=== PATIENT | male | born 1940 | race Caucasian/White ===

== ENCOUNTER 2018-02-13 09:11 | Outpatient (RCR) | payer MEDICARE, SELFPAY | END 2018-02-13 09:12 | LOC: DC 09:11 | PROVIDERS: Family Provider Family Medicine; PCP Family Medicine; Visit Provider Family Medicine | DX: N18.3 Chronic kidney disease, stage 3 (moderate) (principal); Z71.3 Dietary counseling and surveillance | CPT/HCPCS: 97802 ==

== ENCOUNTER → 2018-02-19 10:48 | Outpatient (CLI) | payer MEDICARE, SELFPAY ==
--- NOTE | 2018-02-19 10:50 | VDLE_ITS ---
Reason For Study: PAIN RIGHT GSV is normal. CFV is compressible, spontaneous, phasic, competent and demonstrates normal augmentation. FV is compressible, spontaneous, phasic, competent and demonstrates normal augmentation. POP V is compressible, spontaneous, phasic, competent and demonstrates normal augmentation. T/P Trunk is compressible. PTV is compressible. RT PerV is compressible. Procedure Exam performed in department. A preliminary report was called and/or faxed to Kendal Clifton NP. Interpretation Summary Deep veins of the right lower extremity are patent and compressible segmentally. There is no evidence of right lower extremity deep vein thrombosis. Valvular competence appears intact within the proximal deep venous system on the right . The right greater saphenous vein appears patent and compressible segmentally. Ordering Physician: Kendal Clifton Referring Physician: Rene Quispe Performed By: Mana Gallegos, PAGE, RVT
== END ==
PROVIDERS: Family Provider Family Medicine; PCP Family Medicine; Visit Provider Nurse Practitioner Family
DX: M79.661 Pain in right lower leg (principal)
CPT/HCPCS: 93971

== ENCOUNTER → 2018-11-06 13:47 | Outpatient (CLI) | payer MEDICARE, SELFPAY ==
[2018-09-11 10:53] VITALS: BMI 30.8
--- NOTE | 2018-11-06 13:48 | CDU_ITS ---
Reason For Study: Carotid bruit Rt. Velocities/BP Lt. Velocities/BP Prox CCA 79.2/15.2 cm/sec. Prox CCA 85.8/17.0 cm/sec. Mid CCA 76.8/17.0 cm/sec. Mid CCA 73.8/12.0 cm/sec. Dist CCA 68.6/17.0 cm/sec. Dist CCA 63.3/14.5 cm/sec. Prox ICA 58.6/14.1 cm/sec. Prox ICA 53.4/14.1 cm/sec. Mid ICA 56.9/17.0 cm/sec. Mid ICA 50.5/14.4 cm/sec. Dist ICA 55.2/18.4 cm/sec. Dist ICA 48.8/13.0 cm/sec. Rt. ICA/CCA = .76. Lt. ICA/CCA = .72. Prox ECA 50.4/7.1 cm/sec. Prox ECA 56.9/6.5 cm/sec. Rt. Vert. 35.4/8.6 cm/sec. Lt. Vert. 42.8/14.1 cm/sec. Right Extracranial There is intimal thickening but no significant atherosclerotic plaque noted in the right common carotid artery. There is intimal thickening but no significant atherosclerotic plaque noted in the right internal carotid artery. There is intimal thickening but no significant atherosclerotic plaque noted in the right external carotid artery. Antegrade flow is noted in the right vertebral artery. Left Extracranial There is intimal thickening but no significant atherosclerotic plaque noted in the left common carotid artery. There is intimal thickening but no significant atherosclerotic plaque noted in the left internal carotid artery. There is no significant atherosclerotic plaque noted in the left external carotid artery. Antegrade flow is noted in the left vertebral artery. Procedure Carotid Duplex 79932. Exam performed in department. Interpretation Summary Mild (<50%) stenosis right extracranial internal carotid. Mild (<50%) stenosis left extracranial internal carotid. Flow within the vertebral arteries is antegrade bilaterally. Ordering Physician: Joseph Banerjee Referring Physician: Reen Quispe M.D. Performed By: Leatha Norton RVT
== END ==
PROVIDERS: Family Provider Family Medicine; PCP Family Medicine; Referring Provider Internal Medicine Cardiovascular Disease; Visit Provider Internal Medicine Cardiovascular Disease
DX: R09.89 Other specified symptoms and signs involving the circulatory and respiratory systems (principal)
CPT/HCPCS: 93880

== ENCOUNTER 2019-04-27 09:27 | Day surgery (SDC) | payer MEDICARE, SELFPAY ==
[2018-09-11 10:53] VITALS: BMI 30.8
[2019-04-27 10:16] VITALS: BP 162/92; PULSE 56; RESP 16; TEMP 36.2; O2SAT 97; BMI 30.7
--- NOTE | 2019-04-27 10:50 | RAD_ITS ---
PROCEDURE: Caudal block. DATE OF EXAMINATION: April 27, 2019. INDICATION: Male, 78 years old. Low back pain. FLUOROSCOPY TIME (if supplied): (0:11) minutes/seconds. 2 coned-down images were obtained. Intraoperative imaging provided for caudal block. RAD/Fluor Guidance for Spine Inj IMPRESSION: Intraoperative imaging provided for caudal block. Electronically Signed: Mick Adamson, at 15:22 EDT , Service support ,
[2019-04-27] MEDS: MethylPREDNISolone Acetate 80 MG/ML Vial (11:00)
[2019-04-27] MEDS: Bupivacaine 0.25% 30 ML Vial (11:00)
--- NOTE | 2019-04-27 11:07 | PCM.OPRPT ---
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 (3) Radiculopathy of lumbosacral region Status: Chronic Report of Operation Date of Procedure: 04/27/19 Pre-Operative Diagnosis: Lumbosacral radiculopathy, lumbosacral degenerative disc disease, lumbar sacral spinal stenosis Post-Operative Diagnosis: Lumbosacral radiculopathy, lumbosacral generative disease, lumbosacral spinal stenosis Surgery/Procedure Performed:: Caudal epidural steroid injection Description of Surgical Findings:: PROCEDURE: Caudal epidural steroid injection PREOPERATIVE DIAGNOSIS: Lumbosacral radiculopathy, lumbosacral degenerative disc disease, lumbosacral spinal stenosis POSTOPERATIVE DIAGNOSIS: Lumbosacral radiculopathy, lumbosacral degenerative disc disease, lumbosacral spinal stenosis ANESTHESIA: MAC COMPLICATIONS: None BLOOD LOSS: Minimal PROCEDURE IN DETAIL: History and physical today was reviewed. Risks and benefits of the procedure were explained. The patient understood, agreed to our procedure, and informed consent was obtained. IV inserted per routine protocol. The patient was taken to the operating room, placed in a prone position with a pillow positioned underneath the abdomen. The lower back and tailbone area was prepped and draped in a sterile fashion using iodine ?3 under fluoroscopy guidance on the lateral view the caudal space was identified the skin and subcutaneous tissue and size approximately 3 cc of 1% lidocaine using a 25-gauge regular needle under direct visualization fluoroscopy using the lateral approach using a 22-gauge 3-1/2 inch spinal needle the needle was advanced via the skin through the sacral hiatus, tip of the needle passed through the sacrococcygeal ligament advanced approximately S4 area after negative aspiration for blood or CSF a total of 3 cc of contrast were injected to confirm correct placement of the needle as well as cephalad spread the spread was followed to approximately L5 area after confirmation AP as well as lateral view repeated negative aspiration a total of 15 cc of preservative-free 0.125% Marcaine with 80 mg of the portal was injected easily. The needles were then removed intact. The patient experienced no signs or symptoms of intrathecal, or intravascular injection. The patient experienced no paraesthesia. The procedure was completed without any apparent difficult, any complication. The patient appeared to tolerate well. ASSESSMENT AND PLAN: This is a 78-year-old male with lumbosacral radiculopathy, lumbosacral degenerative disc disease, lumbosacral spinal stenosis status post caudal epidural steroid injection. The patient will continue his current medications. The patient will follow in approximately 2 weeks for reevaluation.
[2019-04-27 11:10] VITALS: BP 162/92; BP 163/80; PULSE 61; RESP 16; TEMP 36.3; O2SAT 97
[2019-04-27 11:15] VITALS: BP 162/92; BP 167/79; PULSE 59; RESP 16; O2SAT 97
[2019-04-27 11:20] VITALS: BP 162/84; BP 162/92; PULSE 56; RESP 16; O2SAT 97
[2019-04-27 11:27] VITALS: BP 162/92; BP 165/80; PULSE 51; RESP 16; TEMP 36.4; O2SAT 97
[2019-04-27 11:47] VITALS: BP 162/92
== END 2019-04-27 11:48 | disposition home or self-care (01) ==
LOC: SDC 09:38 → AC 09:38
PROVIDERS: Family Provider Family Medicine; PCP Family Medicine; Referring Provider Anesthesiology Pain Medicine; Visit Provider Anesthesiology Pain Medicine
PROC: 3E0S3BZ Introduction of Anesthetic Agent into Epidural Space, Percutaneous Approach (ICD-10-PCS; CPT 62282; principal; 2019-04-27 10:45)
DX: M48.061 Spinal stenosis, lumbar region without neurogenic claudication (principal); M51.17 Intervertebral disc disorders with radiculopathy, lumbosacral region; M47.27 Other spondylosis with radiculopathy, lumbosacral region; M17.11 Unilateral primary osteoarthritis, right knee; J45.909 Unspecified asthma, uncomplicated; I12.9 Hypertensive chronic kidney disease with stage 1 through stage 4 chronic kidney disease, or unspecified chronic kidney disease; N18.3 Chronic kidney disease, stage 3 (moderate); E78.00 Pure hypercholesterolemia, unspecified; Z85.828 Personal history of other malignant neoplasm of skin; Z87.891 Personal history of nicotine dependence; Z79.51 Long term (current) use of inhaled steroids; Z79.891 Long term (current) use of opiate analgesic; Z79.899 Other long term (current) drug therapy
CPT/HCPCS: 01992; 62323; 64520; 64483; 77003; J7120; J3490

== ENCOUNTER → 2019-09-30 09:52 | Outpatient (CLI) | payer MEDICARE, SELFPAY ==
[2019-09-15 09:25] VITALS: BMI 31.1
[2019-09-30 10:59] LABS: Albumin, Serum 3.3 g/dL (3.2-5.0); BUN 23 mg/dL (7-18); BUN/Creat Ratio 17.6 RATIO (10-20); Calcium,Total 9.2 mg/dL (8.5-10.1); Chloride 107 mmol/L (98-107); Creatinine, Serum 1.31 mg/dL (0.70-1.30); EST Glomerular Filtration Rate 56 mL/min (>60); Est Glom Filt Rate - Afr Amer 68 mL/min (>60); Glucose 90 mg/dL (74-106); Magnesium 2.1 mg/dL (1.6-2.6); Potassium 4.1 mmol/L (3.5-5.1); Sodium Level 139 mmol/L (136-145)
[2019-09-30 11:14] LABS: Vitamin D,25 Hydroxy 57.5 ng/mL (29.95-100.01)
[2019-09-30 11:16] LABS: PTHIN 55.5 pg/mL (18.4-80.1)
[2019-09-30 11:24] LABS: Microalbumin:Creatinine Ratio 902.6 mg/g CRE (<30 mg/g CRE); Protein, Urine (Random) 166.7 mg/dL (<11.9); Protein:Creat Ratio 1082 mg/g CRE (0-200)
[2019-10-02 12:10] LABS: Albumin 3.3 g/dL (2.9-4.4); Albumin, Ur 74.6 % (.); Alpha-1-Globulin, Ur 5.6 % (.); Alpha-1-Globulins 0.2 g/dL (0.0-0.4); Alpha-2-Globulins 0.6 g/dL (0.4-1.0); Beta Globulin, Ur 9.6 % (.); Gamma Globulin 1.1 g/dL (0.4-1.8); Gamma Globulin, Ur 6.2 % (.); Immunoglobulin A 107 mg/dL (61-437); Immunoglobulin G 558 mg/dL (700-1600); M-Spike, Ur % Not Observed % (Not Observed); PROEL- TOTAL PROTEIN 5.9 g/dL (6.0-8.5)
[2019-10-02 15:38] LABS: IFE Result, Ur Comment: (.); Immunoglobulin M 920 mg/dL (15-143)
== END ==
PROVIDERS: Family Provider Family Medicine; PCP Family Medicine; Referring Provider Internal Medicine Nephrology; Visit Provider Internal Medicine Nephrology
DX: N18.3 Chronic kidney disease, stage 3 (moderate) (principal); D63.1 Anemia in chronic kidney disease; D47.2 Monoclonal gammopathy
CPT/HCPCS: 36415; 80069; 82043; 82306; 82570; 82784; 83735; 83970; 84156; 84165; 84166; 86334; 86335

== ENCOUNTER → 2019-10-22 11:49 | Outpatient (CLI) | payer MEDICARE, SELFPAY ==
[2019-09-15 09:25] VITALS: BMI 31.1
[2019-10-22 12:06] LABS: Bacteria 0 SEEN /hpf (None Seen); Mucous, Urine 0 SEEN /hpf (<or=2+); Red Blood Cells-Urine 0 SEEN /hpf (0-5)
[2019-10-22 12:26] LABS: Absolute Lymphocyte Count 0.52 X10^3/uL (0.83-4.51); Absolute Neutrophil Count 8.1 X10^3/uL (2.0-7.7); Basophil# 0.02 X10^3/uL; Basophil% 0.2 % (0-1); Eosinophil# 0.11 X10^3/uL; Eosinophils% 1.2 % (0-5); Hematocrit 43.9 % (40-54); Hemoglobin 15.2 g/dL (13.0-16.5); Lymphocyte # 0.52 X10^3/ul (4.0); Lymphocyte % 5.5 % (19-41); Mean Corp Hgb Conc 34.6 g/dL (32-36); Mean Corpuscular Hgb 32.1 pg (27.0-32.0); Mean Corpuscular Volume 92.8 fL (80-94); Mean Platelet Vol. 10.3 fl (6.2-12.0); Monocyte# 0.73 X10^3/uL; Monocyte% 7.7 % (0-10); NRBC Flagged by Analyzer 0 % (0-5); Neutrophil # 8.06 X10^3/uL (2.7-7.7); Neutrophil % 84.7 % (47-70); POSITIVE COUNT YES; POSITIVE DIFFERENTIAL YES; Platelet Count 118 K/mm3 (150-450); RBC Distribution Width CV 12.5 % (11.6-14.6); RBC Distribution Width SD 43.2 fl (35.1-43.9); Red Blood Count 4.73 M/mm3 (4.6-6.2); White Blood Count 9.5 K/mm3 (4.4-11.0)
[2019-10-22 12:27] LABS: Differential Indicated SCAN CRITERIA MET
[2019-10-22 12:42] LABS: International Normalized Ratio 1.1; Partial Thromboplast Time 29.2 Seconds (24.1-36.2); Prothrombin Time (Protime)PT. 14.4 SECONDS (11.7-14.9)
[2019-10-22 13:01] LABS: AST(SGOT) 19 U/L (15-37); Alanine Aminotransfer ALT/SGPT 22 U/L (16-61); Albumin, Serum 3.4 g/dL (3.2-5.0); Alkaline Phosphatase 60 U/L (45-117); Anion Gap 4 (5-15); BUN 23 mg/dL (7-18); BUN/Creat Ratio 16.7 RATIO (10-20); Bilirubin, Direct 0.31 mg/dL (0.00-0.30); Calcium,Total 9.7 mg/dL (8.5-10.1); Chloride 105 mmol/L (98-107); Creatinine, Serum 1.38 mg/dL (0.70-1.30); EST Glomerular Filtration Rate 53 mL/min (>60); Est Glom Filt Rate - Afr Amer 64 mL/min (>60); Globulin 3.3 g/dL (2.2-4.2); Glucose 98 mg/dL (74-106); LDH 173 U/L (87-241); Potassium 4.3 mmol/L (3.5-5.1); Protein, Total 6.7 g/dL (6.4-8.2); Sodium Level 140 mmol/L (136-145); Uric Acid 5.3 mg/dL (3.5-7.2)
[2019-10-22 13:07] LABS: Platelet Estimate SLT DEC (ADEQ); Red Cell Morphology NORM C+C NORMAL (NORM C&C)
[2019-10-22 14:16] LABS: Color, Urine Yellow (Yellow); Glucose, Dipstick Normal (Normal); Ketone-Dipstick 5 mg/dl (Negative); Leukocyte Esterase-Dipstick 100 /ul (Negative); Nitrite-Dipstick Positive (Negative); Occult Blood-Urine Negative /ul (Negative); Protein-Dipstick 100 mg/dl (Negative); Urine Bilirubin Dipstick Negative (Negative); Urine Clarity Sl. Cloudy (Clear); Urine Urobilinogen Normal (Normal)
[2019-10-22 14:26] LABS: Squamous Epithelial Cells - UA 0-5 SEEN /hpf (0-5); White Blood Cells 25-50 SEEN /hpf (0-5)
[2019-10-28 17:06] LABS: Viscosity, Serum 1.7 rel.saline (1.6-1.9)
== END ==
PROVIDERS: Family Provider Family Medicine; PCP Family Medicine; Referring Provider Internal Medicine Hematology & Oncology; Visit Provider Internal Medicine Hematology & Oncology
DX: D47.2 Monoclonal gammopathy (principal); N18.3 Chronic kidney disease, stage 3 (moderate); R30.0 Dysuria
CPT/HCPCS: 36415; 80053; 81001; 82248; 82595; 83615; 84550; 85025; 85610; 85730; 85810; 87086; 87088; 87186

== ENCOUNTER → 2019-11-02 08:33 | Outpatient (CLI) | payer MEDICARE, SELFPAY ==
[2019-09-15 09:25] VITALS: BMI 31.1
[2019-11-04 14:08] LABS: Albumin, Ur 69.6 % (.); Alpha-1-Globulin, Ur 5.5 % (.); Alpha-2-Globulins, Ur 4.5 % (.); Beta Globulin, Ur 11.3 % (.); Gamma Globulin, Ur 9.1 % (.); M-Spike, Ur % Not Observed % (Not Observed); Protein, 24Ur 973 mg/24 hr (30-150); Total Protein, Ur 61.8 mg/dL (Not Estab.)
[2019-11-04 17:57] LABS: IFE Result, Ur Comment: (.)
== END ==
LOC: LAB 08:35 → LABSPEC 08:40
PROVIDERS: Family Provider Family Medicine; PCP Family Medicine; Referring Provider Internal Medicine Hematology & Oncology; Visit Provider Internal Medicine Hematology & Oncology
DX: D47.2 Monoclonal gammopathy (principal); N18.3 Chronic kidney disease, stage 3 (moderate)
CPT/HCPCS: 81050; 84166; 86335

== ENCOUNTER → 2019-11-11 | Outpatient (CLI) | payer MEDICARE, SELFPAY ==
[2019-09-15 09:25] VITALS: BMI 31.1
--- NOTE | 2019-11-11 | IMM_PTH ---
PATIENT: CORAL UBS[facility] LOC: [facility] U#:[id number] AGE/SX: 79/M ROOM: RE11/11/[address]: Dr. Jeffry Arredondo DO : 1940 BED: DIS: 11/11/2019 SPEC #: [id number] RECD: 11/17/19 12:31 STATUS: SOUEunice REQ #: [id number] SELAM: 11/11/19 00:[address]: Jeffry Arredondo DEPT: IMMUNOHISTOCHEMISTRY RECD BY: Christelle Lacey ENTERED: 11/17/19 12:34 SP TYPE: IMMUNO OTHR DR: Dr. Gisel Burch DO Tissues: B - Bone marrow of iliac crest Procedures: BCL-2 (add) BCL-6 (add) CD10 (add) CD138 (add) CD15 (add) CD20 (add) CD23 (add) CD3 (add) CD30 (add) CD43 (add) CD45 (add) CD5 (add) CD79A (add) CYCLIN (add) KAPPA (add) KI-67 (add) LAMBDA (add) MUM1 (add) C-MYC (add) Pankeratin (initial) PHYSICIAN & INSTITUTION [place] [id number] SPECIMEN INFORMATION: Tissue Source: B - Bone marrow clot Clinical Info: Lymphoplasmacytic lymphoma Specimen Number: [id number] CPT code: 12892, 39258 x19 METHODOLOGY: Deparaffinized sections of prefer/formalin-fixed tissue or PAP/DQ stained slides are incubated with monoclonal/polyclonal antibodies/oligonucleotide probes. Localization is made via biotin free immunoperoxidase method. Appropriate controls are performed and reacted as expected. Results on target cell population are indicated in the following table: RESULTS: ANTIBODY / CLONE RESULT Block B AE1-3 (AE1/AE3/PCK26) negative CD3 (PS1) positive CD5 (SP10) positive CD10 (56C6) negative CD15 (MMA) negative CD20 (L26) positive CD23 (1B12) negative CD30 (Louie-H2) negative CD43 (L60) positive CD45 (RP2/18) positive CD79a (11E3) positive CD138 (B-A38) negative BCL-2 (bcl-2/100/D5) * BCL-6 (PO475D/A8) negative Cyclin D1/BCL-1 (SP4) negative Nocatee (polyclonal) negative Lambda (polyclonal) negative MUM1 (MRQ-43) negative C-MYC (Y69) negative Ki-67 (30-9) * *?Noncontributory These tests were developed and their performance characteristics determined by [facility]. They may not have been cleared or approved by the U.S. Food and Drug Administration. The FDA has determined that such clearance or approval is not necessary. The above immunohistochemical/dualISH markers are ordered and reviewed by the Pathologist. INTERPRETATION: B. Bone marrow clot: Polytypic lymphoid aggregate. No evidence of plasma cell dyscrasia. Case has been reviewed in consultation with Dr. Stevens who concurs with the above diagnosis. IDC:BRIGIDA AM:manoj 11/18/19
--- NOTE | 2019-11-11 12:48 | BMB_PTH ---
PATIENT: CORAL BUSH LOC: [facility] U#:[id number] AGE/SX: 79/M ROOM: RE11/11/[address]: Dr. Jeffry Arredondo DO : 1940 BED: DIS: 11/11/2019 SPEC #: [id number] RECD: 11/11/19 15:31 STATUS: SPENCER REQ #: [id number] SELAM: 11/11/19 12:[address]: Jeffry Arredondo DEPT: BONE MARROW RECD BY: Oscar Rust ENTERED: 11/12/19 10:20 SP TYPE: BMB OTHR DR: Dr. Gisel Burch DO Tissues: A - Bone marrow, NOS B - Bone marrow, NOS C - Bone marrow, NOS Procedures: Decalcification bone/plaque Bone Marrow Aspiration Bone Marrow Core Biopsy Iron Stain Bone Marrow HEADER OPERATION: Bone marrow biopsy and aspiration PRE-OP DIAGNOSIS: Lymphoplasmacytic lymphoma TISSUE SUBMITTED: A - Core, B - Clot, C - Smears, and send outs (flow, cytogenetics and MYD88) BONE MARROW DIAGNOSIS Bone marrow biopsy, clot and aspiration: Mildly hypercellular bone marrow. Mildly increased stainable iron without ring sideroblasts. Benign lymphoid aggregate, microscopic. No evidence of plasma cell dyscrasia. Peripheral mild thrombocytopenia. See comment. AM:manoj 11/18/19 COMMENT Flow cytometric analysis does not reveal phenotypic evidence of chronic lymphocytic leukemia/small lymphocytic lymphoma, mantle cell lymphoma, hairy cell leukemia or follicular center lymphoma. An abnormal monoclonal B-cell population is present comprising of approximately 2% of the total cells and with slight kappa restriction. Clinical correlation is suggested. MYD88/L265P mutation results are pending and will be reported ass an addendum. Immunohistochemistry ([id number]) supports the above diagnosis. Case has been reviewed in consultation with Dr. Stevesn who concurs with the above diagnosis. IDC:SJ BONE MARROW STUDY Slides are reviewed. CBC DATE: 11/11/19 WBC 4.37; RBC 5.04; HGB 16.0; HCT 44.8; MCV 88.9; RDW 13.2; PLTS 139,000 SEGS 67.2%; LYMPHS 18.1%; MONOS 10.5%; EOS 3.7%; BASOS 0.5% PERIPHERAL SMEAR: Submitted. RBC: Normocytic WBC: Normomorphic PLTS: Mild thrombocytopenia BONE MARROW ASPIRATE DIFFERENTIAL: 200 cell count. Blasts % (normal 0-2): 2 Promyelocytes % (normal 1-5): 3 Myelocytes and metamyelocytes % (normal 17-41): 25 Bands and Segs % (normal 15-32): 25 Eos % (normal 1-6): 3 Basos % (normal 0-1): 0 Monocytes % (normal 0-4): 1 Erythroid Precursors % (normal 17-35): 31 Lymphocytes % (normal 7-13): 8 Plasma Cells % (normal 0-2): 2 ASPIRATE FINDINGS: Site: Not specified Spicular Cellular M/E ratio: 1.90 (Normal 1.5 - 4.0) Megakaryocytes: Adequate Erythropoiesis: Normoblastic Granulopoiesis: Progressive maturation CORE BIOPSY FINDINGS: Site: Not specified Adequacy: Adequate Cellularity %: 50% M/E ratio: Within normal limits Megakaryocytes: Adequate Bony trabeculae: Within normal limits Granulomas: 0 Lymphoid aggregate(s): Minute paratrabecular with small lymphocytes only. Atypical infiltrate(s): 0 ASPIRATE CLOT FINDINGS: Site: Not specified Marrow Particles: Adequate Cellularity %: 50% M/E ratio: Within normal limits Megakaryocytes: Adequate Granuloma(s): 0 Lymphoid aggregate(s): Present, one, polymorphic Atypical infiltrate(s): 0 SPECIAL STAINS (with matched controls): Iron: Mildly increased (1/4) without ring sideroblasts. Reticulin: Within normal limits PAS: Highlights myeloid elements and megakaryocytes. BONE MARROW GROSS A - Received is a container labeled with the patient's name and designated bone marrow biopsy core. The specimen consists of multiple fragments of blood clot mixed with fragments of bone measuring in aggregate 1 x 0.2 x 0.1 cm. The specimen is totally submitted in one cassette after decalcification. B - Received labeled with the patient's name and designated bone marrow biopsy clot is a specimen that consists of approximately ~5 cc of bloody fluid that on filtration yields multiple minute fragments of blood clots measuring in aggregate 3 x 2.5 x 0.3 cm. The specimen is totally submitted in one cassette. C - Also received are 6 unstained and 2 peripheral stained slides. The unstained slides are submitted for appropriate staining. Also received are one purple and two green top tubes which are sent to our reference lab for flow, cytogenetics and MYD88. / SJ:rg 11/12/19 TC: CPT: 28304, 82434, 87269 x2, 82787 x3, 91315 ADDENDUM ADDENDUM ADDENDUM ADDENDUM ADDENDUM ADDENDUM ADDENDUM ADDENDUM ADDENDUM 11/27/2019 09:35 ADDENDUM 11/27/2019 09:35 ADDENDUM 11/27/2019 09:35 ADDENDUM 11/27/2019 09:35 ADDENDUM 11/27/2019 09:35 CYTOGENETICS REPORT FROM [facility] CYTOGENETIC RESULT: 46,XY[20] INTERPRETATION: Normal male karyotype was observed in twenty metaphases analyzed. 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
== END | disposition home or self-care (01) ==
PROVIDERS: PCP Family Medicine; Referring Provider Internal Medicine Hematology & Oncology; Visit Provider Internal Medicine Hematology & Oncology
DX: D47.2 Monoclonal gammopathy (principal)
CPT/HCPCS: 88305; 88311; 88313; 88341; 88342

== ENCOUNTER → 2020-03-24 | Outpatient (CLI) | payer MEDICARE, SELFPAY ==
[2019-09-15 09:25] VITALS: BMI 31.1
[2020-03-24 09:01] LABS: Hematocrit 43.4 % (40-54); Hemoglobin 14.8 g/dL (13.0-16.5); Mean Corp Hgb Conc 34.1 g/dL (32-36); Mean Corpuscular Hgb 31.7 pg (27.0-32.0); Mean Corpuscular Volume 92.9 fL (80-94); Mean Platelet Vol. 10.8 fl (6.2-12.0); Platelet Count 134 K/mm3 (150-450); RBC Distribution Width CV 12.8 % (11.6-14.6); RBC Distribution Width SD 43.3 fl (35.1-43.9); Red Blood Count 4.67 M/mm3 (4.6-6.2); White Blood Count 4.3 K/mm3 (4.4-11.0)
[2020-03-24 09:15] LABS: PTHIN 49.4 pg/mL (18.4-80.1)
[2020-03-24 09:20] LABS: AST(SGOT) 23 U/L (15-37); Alanine Aminotransfer ALT/SGPT 25 U/L (16-61); Albumin, Serum 3.2 g/dL (3.2-5.0); Alkaline Phosphatase 58 U/L (45-117); Anion Gap 5 (5-15); BUN 26 mg/dL (7-18); BUN/Creat Ratio 19.7 RATIO (10-20); Calcium,Total 9.5 mg/dL (8.5-10.1); Chloride 106 mmol/L (98-107); Cholesterol 167 mg/dL (200); Creatinine, Serum 1.32 mg/dL (0.70-1.30); EST Glomerular Filtration Rate 56 mL/min (>60); Est Glom Filt Rate - Afr Amer 67 mL/min (>60); Globulin 3.1 g/dL (2.2-4.2); Glucose 93 mg/dL (74-106); High Density Lipoprotein 68 mg/dL; Magnesium 1.9 mg/dL (1.6-2.6); Phosphorus 3.4 mg/dL (2.5-4.9); Protein, Total 6.3 g/dL (6.4-8.2); Sodium Level 140 mmol/L (136-145); Triglycerides 64 mg/dL; Very Low Density Lipoprotein 13 mg/dL (5-40)
[2020-03-24 09:35] LABS: Microalbumin:Creatinine Ratio 541.5 mg/g CRE (<30 mg/g CRE)
== END | disposition home or self-care (01) ==
LOC: LAB 07:57
PROVIDERS: PCP Family Medicine; Referring Provider Internal Medicine Nephrology; Visit Provider Internal Medicine Nephrology
DX: I12.9 Hypertensive chronic kidney disease with stage 1 through stage 4 chronic kidney disease, or unspecified chronic kidney disease (principal); N18.3 Chronic kidney disease, stage 3 (moderate); D63.1 Anemia in chronic kidney disease; N25.81 Secondary hyperparathyroidism of renal origin; R80.9 Proteinuria, unspecified; E78.5 Hyperlipidemia, unspecified
CPT/HCPCS: 36415; 80053; 80061; 82043; 82306; 82570; 83735; 83970; 84100; 85027

== ENCOUNTER → 2020-05-20 | Outpatient (CLI) | payer MEDICARE, SELFPAY ==
[2019-09-15 09:25] VITALS: BMI 31.1
[2020-05-20 10:13] LABS: Absolute Lymphocyte Count 0.66 X10^3/uL (0.83-4.51); Absolute Neutrophil Count 2.9 X10^3/uL (2.0-7.7); Basophil# 0.03 X10^3/uL; Basophil% 0.7 % (0-1); Eosinophil# 0.18 X10^3/uL; Eosinophils% 4.2 % (0-5); Hematocrit 43.3 % (40-54); Hemoglobin 14.9 g/dL (13.0-16.5); Lymphocyte # 0.66 X10^3/ul (4.0); Lymphocyte % 15.3 % (19-41); Mean Corp Hgb Conc 34.4 g/dL (32-36); Mean Corpuscular Hgb 32.3 pg (27.0-32.0); Mean Corpuscular Volume 93.7 fL (80-94); Mean Platelet Vol. 10.6 fl (6.2-12.0); Monocyte# 0.49 X10^3/uL; Monocyte% 11.3 % (0-10); NRBC Flagged by Analyzer 0 % (0-5); Neutrophil # 2.94 X10^3/uL (2.7-7.7); Platelet Count 137 K/mm3 (150-450); RBC Distribution Width CV 12.9 % (11.6-14.6); RBC Distribution Width SD 44.3 fl (35.1-43.9); Red Blood Count 4.62 M/mm3 (4.6-6.2); White Blood Count 4.3 K/mm3 (4.4-11.0)
[2020-05-20 10:35] LABS: AST(SGOT) 18 U/L (15-37); Alanine Aminotransfer ALT/SGPT 25 U/L (16-61); Albumin, Serum 3.2 g/dL (3.2-5.0); Alkaline Phosphatase 62 U/L (45-117); Anion Gap 4 (5-15); BUN 30 mg/dL (7-18); BUN/Creat Ratio 22.9 RATIO (10-20); Calcium,Total 9.4 mg/dL (8.5-10.1); Chloride 104 mmol/L (98-107); Creatinine, Serum 1.31 mg/dL (0.70-1.30); EST Glomerular Filtration Rate 56 mL/min (>60); Est Glom Filt Rate - Afr Amer 68 mL/min (>60); Globulin 3.1 g/dL (2.2-4.2); Glucose 91 mg/dL (74-106); Potassium 3.9 mmol/L (3.5-5.1); Protein, Total 6.3 g/dL (6.4-8.2); Sodium Level 138 mmol/L (136-145)
[2020-05-23 16:08] LABS: Albumin 3.3 g/dL (2.9-4.4); Alpha-1-Globulins 0.2 g/dL (0.0-0.4); Alpha-2-Globulins 0.5 g/dL (0.4-1.0); Free Kappa Light Chains 52.6 mg/L (3.3-19.4); Free Lambda Light Chains 27.4 mg/L (5.7-26.3); Immunoglobulin A 101 mg/dL (61-437); Immunoglobulin G 555 mg/dL (603-1613); PROEL- TOTAL PROTEIN 5.8 g/dL (6.0-8.5)
[2020-05-23 19:41] LABS: Immunoglobulin M 887 mg/dL (15-143)
== END | disposition home or self-care (01) ==
PROVIDERS: PCP Family Medicine; Referring Provider Internal Medicine Hematology & Oncology; Visit Provider Internal Medicine Hematology & Oncology
DX: C83.00 Small cell B-cell lymphoma, unspecified site (principal); D47.2 Monoclonal gammopathy; C88.0 Waldenstrom macroglobulinemia
CPT/HCPCS: 36415; 80053; 82784; 83883; 84165; 85025; 86334

== ENCOUNTER → 2020-05-25 | Outpatient (CLI) | payer MEDICARE, SELFPAY ==
[2019-09-15 09:25] VITALS: BMI 31.1
[2020-05-27 16:08] LABS: Albumin, Ur 78.6 % (.); Alpha-1-Globulin, Ur 4.5 % (.); Alpha-2-Globulins, Ur 3.2 % (.); Beta Globulin, Ur 7.9 % (.); Gamma Globulin, Ur 5.8 % (.); M-Spike, Ur % Not Observed % (Not Observed); Protein, 24Ur 976 mg/24 hr (30-150); Total Protein, Ur 56.6 mg/dL (Not Estab.)
== END | disposition home or self-care (01) ==
LOC: LABSPEC 08:03
PROVIDERS: PCP Family Medicine; Referring Provider Internal Medicine Hematology & Oncology; Visit Provider Internal Medicine Hematology & Oncology
DX: C88.0 Waldenstrom macroglobulinemia (principal); C83.00 Small cell B-cell lymphoma, unspecified site
CPT/HCPCS: 81050; 84166; 86335

== ENCOUNTER → 2020-06-29 10:29 | Outpatient (CLI) | payer MEDICARE, SELFPAY ==
[2019-09-15 09:25] VITALS: BMI 31.1
--- NOTE | 2020-06-29 10:34 | CDU_ITS ---
Reason For Study: Carotid Stenosis Rt. Velocities/BP Lt. Velocities/BP Prox CCA 77/14 cm/sec. Prox CCA 113/16 cm/sec. Mid CCA 80/17 cm/sec. Mid CCA 69/12 cm/sec. Dist CCA 65/10 cm/sec. Dist CCA 69/15 cm/sec. Prox ICA 54/16 cm/sec. Prox ICA 48/14 cm/sec. Mid ICA 69/20 cm/sec. Mid ICA 55/17 cm/sec. Dist ICA 54/14 cm/sec. Dist ICA 79/22 cm/sec. Rt. ICA/CCA = 0.9. Lt. ICA/CCA = 1.1. Prox ECA 93/6 cm/sec. Prox ECA 88 cm/sec. Rt. Vert. 47/14 cm/sec. Lt. Vert. 45/15 cm/sec. Right Extracranial There is intimal thickening but no significant atherosclerotic plaque noted in the right common carotid artery. There is intimal thickening but no significant atherosclerotic plaque noted in the right internal carotid artery. There is no significant atherosclerotic plaque noted in the right external carotid artery. Antegrade flow is noted in the right vertebral artery. Left Extracranial There is intimal thickening but no significant atherosclerotic plaque noted in the left common carotid artery. There is intimal thickening but no significant atherosclerotic plaque noted in the left internal carotid artery. There is no significant atherosclerotic plaque noted in the left external carotid artery. Antegrade flow is noted in the left vertebral artery. Procedure Carotid Duplex [id number]. Exam performed in department. Interpretation Summary No hemodynamically significant plaque or stenosis bilateral extracranial internal carotid arteries with less than 50% stenosis bilaterally <50% stenosis bilateral external carotids Patent and antegrade vertebrals bilaterally Ordering Physician: Gisel Burhc Referring Physician: Gisel Burch Performed By: Radha Farfan, PAGE, RVT
== END ==
PROVIDERS: PCP Family Medicine; Referring Provider Family Medicine; Visit Provider Family Medicine
DX: R09.89 Other specified symptoms and signs involving the circulatory and respiratory systems (principal)
CPT/HCPCS: 93880

== ENCOUNTER → 2020-08-29 10:34 | Outpatient (CLI) | payer MEDICARE, SELFPAY ==
[2019-09-15 09:25] VITALS: BMI 31.1
[2020-08-29 10:55] LABS: Hematocrit 45.7 % (40-54); Hemoglobin 15.4 g/dL (13.0-16.5); Mean Corp Hgb Conc 33.7 g/dL (32-36); Mean Corpuscular Hgb 31.8 pg (27.0-32.0); Mean Corpuscular Volume 94.4 fL (80-94); Mean Platelet Vol. 10.6 fl (6.2-12.0); Platelet Count 138 K/mm3 (150-450); RBC Distribution Width CV 12.9 % (11.6-14.6); RBC Distribution Width SD 44.9 fl (35.1-43.9); Red Blood Count 4.84 M/mm3 (4.6-6.2); White Blood Count 5.6 K/mm3 (4.4-11.0)
[2020-08-29 11:14] LABS: PTHIN 86.8 pg/mL (18.4-80.1)
[2020-08-29 11:17] LABS: Albumin, Serum 3.2 g/dL (3.2-5.0); BUN 25 mg/dL (7-18); BUN/Creat Ratio 17.6 RATIO (10-20); Calcium,Total 9.1 mg/dL (8.5-10.1); Chloride 106 mmol/L (98-107); Creatinine, Serum 1.42 mg/dL (0.70-1.30); EST Glomerular Filtration Rate 51 mL/min (>60); Est Glom Filt Rate - Afr Amer 62 mL/min (>60); Glucose 92 mg/dL (74-106); Magnesium 2.2 mg/dL (1.6-2.6); Phosphorus 3.1 mg/dL (2.5-4.9); Potassium 4.2 mmol/L (3.5-5.1); Sodium Level 139 mmol/L (136-145)
[2020-08-29 11:18] LABS: Vitamin D,25 Hydroxy 49.5 ng/mL
[2020-08-29 12:15] LABS: Microalbumin:Creatinine Ratio 634.1 mg/g CRE (<30 mg/g CRE)
== END ==
PROVIDERS: PCP Family Medicine; Referring Provider Internal Medicine Nephrology; Visit Provider Internal Medicine Nephrology
DX: N18.30 Chronic kidney disease, stage 3 unspecified (principal); N25.81 Secondary hyperparathyroidism of renal origin; R80.9 Proteinuria, unspecified; D63.1 Anemia in chronic kidney disease
CPT/HCPCS: 36415; 80069; 82043; 82306; 82570; 83735; 83970; 85027

== ENCOUNTER → 2020-09-20 09:34 | Outpatient (CLI) | payer MEDICARE, SELFPAY ==
[2020-09-20 10:49] LABS: Albumin, Serum 3.3 g/dL (3.2-5.0); BUN 32 mg/dL (7-18); BUN/Creat Ratio 19.4 RATIO (10-20); Calcium,Total 9.1 mg/dL (8.5-10.1); Chloride 101 mmol/L (98-107); Creatinine, Serum 1.65 mg/dL (0.70-1.30); EST Glomerular Filtration Rate 43 mL/min (>60); Est Glom Filt Rate - Afr Amer 52 mL/min (>60); Glucose 95 mg/dL (74-106); Magnesium 2.4 mg/dL (1.6-2.6); Potassium 3.4 mmol/L (3.5-5.1); Sodium Level 138 mmol/L (136-145)
== END ==
PROVIDERS: PCP Family Medicine; Referring Provider Internal Medicine Nephrology; Visit Provider Internal Medicine Nephrology
DX: N18.31 Chronic kidney disease, stage 3a (principal)
CPT/HCPCS: 36415; 80069; 83735

== ENCOUNTER 2020-11-17 09:13 | Outpatient (RCR) | payer MEDICARE, SELFPAY ==
[2020-09-15 09:18] VITALS: BMI 28.1
== END 2020-11-17 23:59 ==
LOC: IMMUN 09:13
PROVIDERS: PCP Family Medicine; Visit Provider Family Medicine
DX: Z23 Encounter for immunization (principal)
CPT/HCPCS: 0011A; 0012A; 91301

== ENCOUNTER → 2020-12-24 07:30 | Outpatient (CLI) | payer MEDICARE, SELFPAY ==
[2020-09-15 09:18] VITALS: BMI 28.1
[2020-12-24 07:59] LABS: Hematocrit 39.6 % (40-54); Hemoglobin 13.3 g/dL (13.0-16.5); Mean Corp Hgb Conc 33.6 g/dL (32-36); Mean Corpuscular Hgb 31.5 pg (27.0-32.0); Mean Corpuscular Volume 93.8 fL (80-94); Mean Platelet Vol. 10.4 fl (6.2-12.0); Platelet Count 138 K/mm3 (150-450); RBC Distribution Width CV 13.1 % (11.6-14.6); Red Blood Count 4.22 M/mm3 (4.6-6.2); White Blood Count 4.3 K/mm3 (4.4-11.0)
[2020-12-24 08:32] LABS: ALB/GLOB Ratio 1.1 RATIO (0.9-2.4); AST(SGOT) 20 U/L (15-37); Alanine Aminotransfer ALT/SGPT 23 U/L (16-61); Albumin, Serum 3.1 g/dL (3.2-5.0); Alkaline Phosphatase 58 U/L (45-117); Anion Gap 4 (5-15); BUN 25 mg/dL (7-18); BUN/Creat Ratio 16.8 RATIO (10-20); Calcium,Total 9.2 mg/dL (8.5-10.1); Chloride 102 mmol/L (98-107); Cholesterol 144 mg/dL (200); Creatinine, Serum 1.49 mg/dL (0.70-1.30); EST Glomerular Filtration Rate 48 mL/min (>60); Est Glom Filt Rate - Afr Amer 58 mL/min (>60); Globulin 2.8 g/dL (2.2-4.2); Glucose 97 mg/dL (74-106); High Density Lipoprotein 62 mg/dL; Phosphorus 3.5 mg/dL (2.5-4.9); Potassium 3.7 mmol/L (3.5-5.1); Protein, Total 5.9 g/dL (6.4-8.2); Sodium Level 138 mmol/L (136-145); Thyroid Stim Hormone (TSH) 0.74 uIU/mL (0.358-3.74); Triglycerides 54 mg/dL; Very Low Density Lipoprotein 11 mg/dL (5-40)
[2020-12-24 09:42] LABS: Microalbumin:Creatinine Ratio 160.8 mg/g CRE (<30 mg/g CRE); Protein, Urine (Random) 32.4 mg/dL (<11.9); Protein:Creat Ratio 270 mg/g CRE (0-200)
[2020-12-26 08:21] LABS: PTHIN 49.2 pg/mL (18.4-80.1)
[2020-12-26 08:24] LABS: Vitamin D,25 Hydroxy 60.2 ng/mL
== END ==
LOC: LAB.FUTURE 07:30 → LAB 07:32
PROVIDERS: PCP Family Medicine; Referring Provider Family Medicine; Visit Provider Family Medicine
DX: N25.81 Secondary hyperparathyroidism of renal origin (principal); R80.9 Proteinuria, unspecified; I12.9 Hypertensive chronic kidney disease with stage 1 through stage 4 chronic kidney disease, or unspecified chronic kidney disease; N18.31 Chronic kidney disease, stage 3a; D63.1 Anemia in chronic kidney disease; E78.5 Hyperlipidemia, unspecified
CPT/HCPCS: 36415; 80053; 80061; 82043; 82306; 82570; 83735; 83970; 84100; 84156; 84443; 85027

== ENCOUNTER 2021-04-17 08:26 | Day surgery (SDC) | payer MEDICARE, SELFPAY ==
[2020-09-15 09:18] VITALS: BMI 28.1
[2021-04-17] VITALS (7 sets, daily range): BP systolic 138–156; BP diastolic 72–90; PULSE 52–65; RESP 16; TEMP 36.2–36.8; O2SAT 95–98; BMI 27.7
[2021-04-17] MEDS: Lactated Ringers 1,000 ML 100 ML IV (09:01)
--- NOTE | 2021-04-17 09:18 | RAD_ITS ---
PROCEDURE: Caudal block. DATE OF EXAMINATION: 04/17/2021 INDICATION: Male, 80 years old. Low back pain. FLUOROSCOPY TIME (if supplied): (6 seconds) minutes/seconds. 2 Intraoperative images were obtained. RAD/Fluor Guidance for Spine Inj IMPRESSION: Intraoperative imaging provided for caudal block. Electronically Signed: Mick Adamson MD at 10:04 EDT , Service support ,
[2021-04-17] MEDS: Lidocaine 1% (5 ml sdv) 5 ML Vial (09:19)
[2021-04-17] MEDS: Bupivacaine 0.25% 30 ML Vial (09:20)
[2021-04-17] MEDS: 0.9% Normal Saline (Pres. free 10 ML Vial (09:20)
[2021-04-17] MEDS: MethylPREDNISolone Acetate 80 MG/ML Vial (09:20)
--- NOTE | 2021-04-17 16:30 | OP.PCM_ITS ---
Report of Operation Date of Procedure: 04/17/21 Pre-Operative Diagnosis: Lumbosacral radiculopathy, lumbosacral degenerative di sc disease, lumbosacral spinal stenosis Post-Operative Diagnosis: Lumbosacral radiculopathy, lumbosacral degenerative disc disease, lumbosacral spinal stenosis Surgery/Procedure Performed:: Caudal epidural steroid injection under fluoroscopic guidance Type of Anesthesia: MAC Estimated Blood Loss (mL): Minimal Description of Procedure: DESCRIPTION OF PROCEDURE: History and physical of today was reviewed. Risks and benefits of the procedure were explained. The patient understood and agreed to proceed. Informed consent was obtained. IV inserted per routine protocol. The patient was taken to the operating room and placed in the prone position with a pillow positioned underneath the abdomen. The lower back and tailbone area was prepped and draped in a sterile fashion using iodine x3. Under fluoroscopy guidance on a lateral view, the caudal space was identified. The skin and subcutaneous tissue was anesthetized with approximately 3 mL of 1% lidocaine using a 25-gauge regular needle. Under direct visualization with fluoroscopy, using a 22-gauge 3-1/2-inch spinal needle, the needle was advanced via the skin through the sacral hiatus. The tip of the needle was passed through the sacrococcygeal ligament and advanced to approximately S4 area. After negative aspiration of blood or CSF, a total of 3 mL of contrast was injected to confirm correct placement of the needle as well as cephalad spread. The spread was followed to approximately L5 area. After confirmation on AP as well as lateral view and repeated negative aspiration, a total of 15 mL of preservative-free 0.125% Marcaine with 80 mg of Depo-Medrol was injected easily. The needle was then removed intact. The patient experienced no sign or symptoms of intrathecal or intravascular injection. The patient experienced no paresthesia. The procedure was completed without any apparent difficulty or any complications. The patient appeared to tolerate it well. ASSESSMENT AND PLAN: This is a 80-year-old male with lumbosacral radiculopathy, lumbosacral degenerative disc disease, lumbosacral spinal stenosis status post caudal epidural steroid injection, patient will continue his current medications, patient will follow in approximately 2 weeks for reevaluation. Complications None
== END 2021-04-17 10:31 ==
LOC: SDC 08:27 → AC 08:28
PROVIDERS: PCP Family Medicine; Referring Provider Anesthesiology Pain Medicine; Visit Provider Anesthesiology Pain Medicine
PROC: 3E0S3BZ Introduction of Anesthetic Agent into Epidural Space, Percutaneous Approach (ICD-10-PCS; CPT 62282; principal; 2021-04-17 09:55)
DX: M47.27 Other spondylosis with radiculopathy, lumbosacral region (principal); M51.17 Intervertebral disc disorders with radiculopathy, lumbosacral region; M48.07 Spinal stenosis, lumbosacral region; M13.861 Other specified arthritis, right knee; I12.9 Hypertensive chronic kidney disease with stage 1 through stage 4 chronic kidney disease, or unspecified chronic kidney disease; N18.9 Chronic kidney disease, unspecified; J45.909 Unspecified asthma, uncomplicated; E66.9 Obesity, unspecified; Z68.27 Body mass index [BMI] 27.0-27.9, adult; Z85.828 Personal history of other malignant neoplasm of skin; Z79.899 Other long term (current) drug therapy; Z87.891 Personal history of nicotine dependence
CPT/HCPCS: 01992; 62323; 64483; 77003; J7120; J3490

== ENCOUNTER → 2021-05-19 08:38 | Outpatient (CLI) | payer MEDICARE, SELFPAY ==
[2021-04-17 08:45] VITALS: BMI 27.7
[2021-05-19 09:46] LABS: Absolute Lymphocyte Count 0.62 X10^3/uL (0.83-4.51); Absolute Neutrophil Count 2.7 X10^3/uL (2.0-7.7); Basophil# 0.02 X10^3/uL; Basophil% 0.5 % (0-1); Eosinophil# 0.16 X10^3/uL; Eosinophils% 4.1 % (0-5); Hematocrit 40.2 % (40-54); Hemoglobin 13.7 g/dL (13.0-16.5); Lymphocyte # 0.62 X10^3/ul (0.83-4.51); Lymphocyte % 15.7 % (19-41); Mean Corp Hgb Conc 34.1 g/dL (32-36); Mean Corpuscular Hgb 31.8 pg (27.0-32.0); Mean Corpuscular Volume 93.3 fL (80-94); Mean Platelet Vol. 10.9 fl (6.2-12.0); Monocyte# 0.42 X10^3/uL; Monocyte% 10.6 % (0-10); NRBC Flagged by Analyzer 0 % (0-5); Neutrophil # 2.72 X10^3/uL (2.7-7.7); Neutrophil % 68.8 % (47-70); Platelet Count 126 K/mm3 (150-450); RBC Distribution Width CV 12.8 % (11.6-14.6); RBC Distribution Width SD 44.3 fl (35.1-43.9); Red Blood Count 4.31 M/mm3 (4.6-6.2)
[2021-05-19 10:14] LABS: AST(SGOT) 22 U/L (15-37); Alanine Aminotransfer ALT/SGPT 34 U/L (16-61); Albumin, Serum 3.1 g/dL (3.2-5.0); Alkaline Phosphatase 64 U/L (45-117); Anion Gap 7 (5-15); BUN 31 mg/dL (7-18); BUN/Creat Ratio 22.6 RATIO (10-20); Calcium,Total 8.8 mg/dL (8.5-10.1); Chloride 102 mmol/L (98-107); Creatinine, Serum 1.37 mg/dL (0.70-1.30); EST Glomerular Filtration Rate 53 mL/min (>60); Est Glom Filt Rate - Afr Amer 64 mL/min (>60); Globulin 3.1 g/dL (2.2-4.2); Glucose 92 mg/dL (74-106); Potassium 3.6 mmol/L (3.5-5.1); Protein, Total 6.2 g/dL (6.4-8.2); Sodium Level 139 mmol/L (136-145)
[2021-05-23 16:09] LABS: Albumin 3.4 g/dL (2.9-4.4); Albumin, Ur 66.3 % (.); Alpha-1-Globulin, Ur 6.8 % (.); Alpha-1-Globulins 0.2 g/dL (0.0-0.4); Alpha-2-Globulins 0.5 g/dL (0.4-1.0); Alpha-2-Globulins, Ur 5.8 % (.); Beta Globulin, Ur 10.8 % (.); Gamma Globulin, Ur 10.4 % (.); Immunoglobulin A 95 mg/dL (61-437); Immunoglobulin G 546 mg/dL (603-1613); PROEL- TOTAL PROTEIN 5.7 g/dL (6.0-8.5)
[2021-05-23 16:17] LABS: IFE Result, Ur Comment: (.); Immunoglobulin M 853 mg/dL (15-143); M-Spike, Ur % Comment: % (Not Observed)
== END ==
PROVIDERS: PCP Family Medicine; Referring Provider Internal Medicine Hematology & Oncology; Visit Provider Internal Medicine Hematology & Oncology
DX: C88.0 Waldenstrom macroglobulinemia (principal); C83.00 Small cell B-cell lymphoma, unspecified site
CPT/HCPCS: 36415; 80053; 82232; 82784; 84165; 84166; 85025; 86334; 86335

== ENCOUNTER → 2021-06-30 14:29 | Outpatient (CLI) | payer MEDICARE, SELFPAY ==
[2021-06-30 16:11] LABS: Hematocrit 38.9 % (40-54); Hemoglobin 13.4 g/dL (13.0-16.5); Mean Corp Hgb Conc 34.4 g/dL (32-36); Mean Corpuscular Hgb 31.9 pg (27.0-32.0); Mean Corpuscular Volume 92.6 fL (80-94); Mean Platelet Vol. 10.8 fl (6.2-12.0); Platelet Count 129 K/mm3 (150-450); RBC Distribution Width CV 12.8 % (11.6-14.6); RBC Distribution Width SD 43.6 fl (35.1-43.9); White Blood Count 4.8 K/mm3 (4.4-11.0)
[2021-06-30 16:27] LABS: Microalbumin:Creatinine Ratio 204.2 mg/g CRE (<30 mg/g CRE)
[2021-06-30 16:41] LABS: Albumin, Serum 3.3 g/dL (3.2-5.0); BUN 32 mg/dL (7-18); BUN/Creat Ratio 23.2 RATIO (10-20); Chloride 103 mmol/L (98-107); Creatinine, Serum 1.38 mg/dL (0.70-1.30); EST Glomerular Filtration Rate 53 mL/min (>60); Est Glom Filt Rate - Afr Amer 64 mL/min (>60); Glucose 92 mg/dL (74-106); Magnesium 2.2 mg/dL (1.6-2.6); Phosphorus 3.2 mg/dL (2.5-4.9); Potassium 3.9 mmol/L (3.5-5.1); Sodium Level 138 mmol/L (136-145)
[2021-06-30 16:48] LABS: Vitamin D,25 Hydroxy 65.2 ng/mL
[2021-07-04 08:23] LABS: PTHIN 70.8 pg/mL (18.4-80.1)
== END ==
PROVIDERS: PCP Family Medicine; Referring Provider Internal Medicine Nephrology; Visit Provider Internal Medicine Nephrology
DX: N25.81 Secondary hyperparathyroidism of renal origin (principal); R80.9 Proteinuria, unspecified; D63.1 Anemia in chronic kidney disease; N18.30 Chronic kidney disease, stage 3 unspecified
CPT/HCPCS: 36415; 80069; 82043; 82306; 82570; 83735; 83970; 85027

== ENCOUNTER 2021-12-18 09:21 | Outpatient (CLI) | payer MEDICARE, SELFPAY ==
[2021-12-18 10:20] LABS: AST(SGOT) 18 U/L (15-37); Alanine Aminotransfer ALT/SGPT 24 U/L (16-61); Albumin, Serum 3.1 g/dL (3.2-5.0); Alkaline Phosphatase 63 U/L (45-117); Bilirubin, Direct 0.21 mg/dL (0.00-0.30); Cholesterol 159 mg/dL (200); Globulin 3.1 g/dL (2.2-4.2); High Density Lipoprotein 62 mg/dL; Protein, Total 6.2 g/dL (6.4-8.2); Triglycerides 60 mg/dL; Very Low Density Lipoprotein 12 mg/dL (5-40)
== END 2021-12-18 23:59 | disposition home or self-care (01) ==
LOC: LAB 09:24
PROVIDERS: PCP Family Medicine; Visit Provider Internal Medicine Cardiovascular Disease
DX: E78.5 Hyperlipidemia, unspecified (principal)
CPT/HCPCS: 36415; 80061; 80076

== ENCOUNTER 2022-01-29 09:25 | Outpatient (CLI) | payer MEDICARE, SELFPAY ==
[2022-01-29 10:27] LABS: Hematocrit 40.2 % (40-54); Hemoglobin 14.1 g/dL (13.0-16.5); Mean Corp Hgb Conc 35.1 g/dL (32-36); Mean Corpuscular Hgb 32.1 pg (27.0-32.0); Mean Corpuscular Volume 91.6 fL (80-94); Mean Platelet Vol. 10.9 fl (6.2-12.0); Platelet Count 125 K/mm3 (150-450); RBC Distribution Width CV 12.9 % (11.6-14.6); RBC Distribution Width SD 43.5 fl (35.1-43.9); Red Blood Count 4.39 M/mm3 (4.6-6.2); White Blood Count 4.7 K/mm3 (4.4-11.0)
[2022-01-29 10:49] LABS: Albumin, Serum 3.2 g/dL (3.2-5.0); BUN 45 mg/dL (7-18); Calcium,Total 9.6 mg/dL (8.5-10.1); Chloride 104 mmol/L (98-107); Creatinine, Serum 1.61 mg/dL (0.70-1.30); EST Glomerular Filtration Rate 44 mL/min (>60); Est Glom Filt Rate - Afr Amer 53 mL/min (>60); Glucose 99 mg/dL (74-106); Phosphorus 3.5 mg/dL (2.5-4.9); Potassium 3.5 mmol/L (3.5-5.1); Sodium Level 139 mmol/L (136-145)
[2022-01-29 10:52] LABS: PTHIN 37.5 pg/mL (18.4-80.1)
[2022-01-29 10:54] LABS: Vitamin D,25 Hydroxy 66.9 ng/mL
[2022-01-29 11:31] LABS: Microalbumin,Random Urine 76.6 mg/L (NO RANGE EST.); Microalbumin:Creatinine Ratio 81.8 mg/g CRE (<30 mg/g CRE)
== END 2022-01-29 23:59 | disposition home or self-care (01) ==
LOC: LAB 09:27
PROVIDERS: PCP Family Medicine; Referring Provider Internal Medicine Nephrology; Visit Provider Internal Medicine Nephrology
DX: N25.81 Secondary hyperparathyroidism of renal origin (principal); N18.31 Chronic kidney disease, stage 3a; R80.9 Proteinuria, unspecified; D63.1 Anemia in chronic kidney disease
CPT/HCPCS: 36415; 80069; 82043; 82306; 82570; 83735; 83970; 85027

== ENCOUNTER → 2022-11-08 | Outpatient (CLI) | payer MEDICARE, SELFPAY ==
--- NOTE | 2022-11-08 15:33 | MRI_ITS ---
EXAM: MR RIGHT UPPER EXTREMITY WITHOUT INTRAVENOUS CONTRAST, SHOULDER CLINICAL INDICATION: STRAIN OF ROTATOR CUFF, BURSITIS, painful w/ movement TECHNIQUE: Multiplanar and multisequence MR images of the right shoulder without intravenous contrast. This report was created using [employer] technology. COMPARISON: None. FINDINGS: ARTIFACTS: Motion artifact limits assessment. TENDONS: SUPRASPINATUS: Full thickness full width tearing of the supraspinatus tendon and infraspinatus tendon with failure at the footprint and with retraction of the torn tendon fibers to the joint line. INFRASPINATUS: See above. SUBSCAPULARIS: Unremarkable. Intact. TERES MINOR: Unremarkable. Intact. BICEPS BRACHII, LONG HEAD: Long head biceps tendon is not well seen within the bicipital groove which is concerning for tearing and/or dislocation. LIGAMENTS: GLENOHUMERAL: Unremarkable. Intact. MUSCLES: Moderate to severe atrophy involving supraspinatus and infraspinatus muscles. FLUID: Moderate to large amount of glenohumeral joint effusion with synovitis. This extends into the subacromial/subdeltoid bursa through the full thickness rotator cuff tear. CARTILAGE: Unremarkable. Articular cartilage intact. GLENOID LABRUM: Unremarkable. No labral tearing. BONES/JOINTS: Moderate to severe hypertrophic degenerative changes acromioclavicular joint. High riding humeral head forming a pseudoarticulation with the undersurface of the acromion. Type II acromion with curved undersurface. No subacromial enthesophyte. No coracoacromial ligament thickening or irregularity. No os acromiale. No concerning bone marrow signal alterations. OTHER SOFT TISSUES: Unremarkable. No rotator interval edema. MRI/Upper Ext Joint Only(Routine) IMPRESSION: 1. Full thickness full width tearing of the supraspinatus tendon and infraspinatus tendon with failure at the footprint and with retraction of the torn tendon fibers to the joint line. 2. Moderate to large amount of glenohumeral joint effusion with synovitis. This extends into the subacromial/subdeltoid bursa through the full thickness rotator cuff tear. 3. Moderate to severe hypertrophic degenerative changes involving the acromioclavicular joint. 4. Long head biceps tendon is not well seen within the bicipital groove which is concerning for tearing and/or dislocation. Electronically Signed: Manny Kim MD at 3:28 EST ,
== END | disposition home or self-care (01) ==
LOC: MRI 15:25
PROVIDERS: PCP Family Medicine; Visit Provider Physician Assistant Surgical
DX: M75.41 Impingement syndrome of right shoulder (principal); S46.011A Strain of muscle(s) and tendon(s) of the rotator cuff of right shoulder, initial encounter; M75.51 Bursitis of right shoulder; X58.XXXA Exposure to other specified factors, initial encounter
CPT/HCPCS: 73221

== ENCOUNTER 2022-11-12 12:19 | Day surgery (SDC) | payer MEDICARE, SELFPAY ==
[2022-11-12] VITALS (9 sets, daily range): BP systolic 138–189; BP diastolic 80–91; PULSE 51–69; RESP 16–18; TEMP 36.1–36.4; O2SAT 96–98; BMI 29.2
[2022-11-12] MEDS: Lactated Ringers 1,000 ML 15 ML IV (13:45)
--- NOTE | 2022-11-12 14:00 | RAD_ITS ---
PROCEDURE: Caudal block. DATE OF EXAMINATION: 11/12/2022. INDICATION: Male, 82 years old. Chronic low back pain. FLUOROSCOPY TIME (if supplied): (2.3 seconds) minutes/seconds. One image was submitted. RAD/Fluor Guidance for Spine Inj IMPRESSION: Intraoperative imaging provided for caudal block. Electronically Signed: Mick Adamson MD at 8:14 EST ,
--- NOTE | 2022-11-12 15:00 | OP.PCM_ITS ---
Report of Operation Date of Procedure: 11/12/22 Pre-Operative Diagnosis: Lumbosacral radiculopathy, lumbosacral degenerative di sc disease, lumbosacral spinal stenosis Post-Operative Diagnosis: Lumbosacral radiculopathy, lumbosacral degenerative disc disease, lumbosacral spinal stenosis Surgery/Procedure Performed:: Caudal epidural steroid injection under fluoroscopic guidance Type of Anesthesia: MAC Estimated Blood Loss (mL): Minimal Description of Procedure: DESCRIPTION OF PROCEDURE: History and physical of today was reviewed. Risks and benefits of the procedure were explained. The patient understood and agreed to proceed. Informed consent was obtained. IV inserted per routine protocol. The patient was taken to the operating room and placed in the prone position with a pillow positioned underneath the abdomen. The lower back and tailbone area was prepped and draped in a sterile fashion using iodine x3. Under fluoroscopy guidance on a lateral view, the caudal space was identified. The skin and subcutaneous tissue was anesthetized with approximately 3 mL of 1% lidocaine using a 25-gauge regular needle. Under direct visualization with fluoroscopy, using a 22-gauge 3-1/2-inch spinal needle, the needle was advanced via the skin through the sacral hiatus. The tip of the needle was passed through the sacrococcygeal ligament and advanced to approximately S4 area. After negative aspiration of blood or CSF, a total of 3 mL of contrast was injected to confirm correct placement of the needle as well as cephalad spread. The spread was followed to approximately L5 area. After confirmation on AP as well as lateral view and repeated negative aspiration, a total of 15 mL of preservative-free 0.125% Marcaine with 80 mg of Depo-Medrol was injected easily. The needle was then removed intact. The patient experienced no sign or symptoms of intrathecal or intravascular injection. The patient experienced no paresthesia. The procedure was completed without any apparent difficulty or any complications. The patient appeared to tolerate it well. ASSESSMENT AND PLAN: This is a 82-year-old male with lumbosacral radiculopathy, lumbosacral degenerative disc disease, lumbosacral spinal stenosis status post caudal epidural steroid injection, patient will continue his current medications, patient will follow in approximately 2 weeks for reevaluation. Complications None
== END 2022-11-12 15:50 | disposition home or self-care (01) ==
LOC: SDC 12:23 → AC 13:10
PROVIDERS: PCP Family Medicine; Referring Provider Anesthesiology Pain Medicine; Visit Provider Anesthesiology Pain Medicine
PROC: 3E0S3BZ Introduction of Anesthetic Agent into Epidural Space, Percutaneous Approach (ICD-10-PCS; CPT 62282; principal; 2022-11-12 14:10)
DX: M51.17 Intervertebral disc disorders with radiculopathy, lumbosacral region (principal); M48.07 Spinal stenosis, lumbosacral region; I10 Essential (primary) hypertension; E78.5 Hyperlipidemia, unspecified; J45.909 Unspecified asthma, uncomplicated; M51.37 Other intervertebral disc degeneration, lumbosacral region
CPT/HCPCS: 62323; 64483; 77003; J7120; J3490

== ENCOUNTER → 2022-12-26 | Outpatient (CLI) | payer MEDICARE, SELFPAY ==
--- NOTE | 2022-12-26 15:38 | RAD_ITS ---
EXAM: XR CHEST, 2 VIEWS CLINICAL INDICATION: abnormal lung sounds TECHNIQUE: Frontal and lateral views of the chest. This report was created using [employer] report generation technology. COMPARISON: None. FINDINGS: LUNGS AND PLEURAL SPACES: Unremarkable. No consolidation or edema. No pneumothorax. No effusion. HEART: Unremarkable. Cardiac silhouette not enlarged. MEDIASTINUM: Central airways and mediastinal contour are unremarkable. BONES/JOINTS: Unremarkable. SOFT TISSUES: Unremarkable. UPPER ABDOMEN: Elevated right hemidiaphragm. RAD/Chest PA and Lateral IMPRESSION: Elevated right hemidiaphragm. No acute abnormality. Electronically Signed: Mj Perkins MD at 4:46 EST ,
== END | disposition home or self-care (01) ==
LOC: RAD 15:33
PROVIDERS: PCP Family Medicine; Visit Provider Physician Assistant Medical
DX: R09.89 Other specified symptoms and signs involving the circulatory and respiratory systems (principal)
CPT/HCPCS: 71046

== ENCOUNTER → 2023-04-12 | Outpatient (CLI) | payer MEDICARE, SELFPAY ==
--- NOTE | 2023-04-12 06:42 | MRI_ITS ---
STUDY: MRI LUMBAR SPINE WITHOUT CONTRAST REASON FOR EXAM: Male, 82 years old. R SIDED SCIATICA, NUMBNESS R ANTERIOR THIGH TECHNIQUE: Standardized fat and water weighted pulse sequences were obtained in the sagittal and axial planes. COMPARISON: MRI lumbar spine without contrast 08/22/2017. FINDINGS: T11-T12: (Sagittal only). Normal endplates. Normal disc height and morphology. No ventral extradural defect. Normal central canal and bilateral intervertebral neural foramina. T12-L1: (Sagittal only). Normal endplates. Normal disc height, hydration and morphology. Normal central canal and bilateral intervertebral neural foramina. Normal lumbar lordosis. There is no substantial scoliosis. Normal conus medullaris that terminates at the lower L1 vertebral body level. L1-2: Normal endplates. Minimal disc space height narrowing with minimal ventral extradural defect due to posterior bulging annulus. This is unchanged. Normal facet joints. Normal central canal and bilateral lateral recesses. Normal bilateral intervertebral neural foramina. Multiple bilateral renal cysts are visible at this level. L2-3: Normal endplates. Minimal disc space height narrowing. No significant facet arthropathy. Mild dorsal epidural lipomatosis. Normal central canal and bilateral lateral recesses. Mild stenosis of the bilateral intervertebral neural foramina are unchanged. L3-4: Normal endplates. Minimal disc space height narrowing. Suspicious small posterior midline cephalad disc protrusion (series 2, image 7). No associated spinal stenosis or nerve root displacement. No significant facet arthropathy. Normal central canal and bilateral lateral recesses. Mild stenosis of the left intervertebral neural foramen is unchanged. Normal right intervertebral neural foramen. L4-5: Normal endplates. Normal disc height. Mild ventral extradural defect due to posterior bulging annulus. No significant facet arthropathy. Mild dorsal epidural lipomatosis. Normal central canal and bilateral lateral recesses. Mild stenosis of the right intervertebral neural foramen. Normal left intervertebral neural foramen. This level is unchanged. L5-S1: Normal endplates. Normal disc height. Mild increased degenerative anterolisthesis of L5 on S1. Moderate asymmetric degenerative facet arthropathy, left greater than right. Normal central canal and bilateral lateral recesses. Moderate stenosis of the left intervertebral neural foramen is unchanged. Normal right intervertebral neural foramen. Normal visualized sacral ala. Normal visualized paraspinous soft tissue structures. MRI/Spine Lumbar (Routine) IMPRESSION: 1. No MRI evidence of lumbar extruded disc fragment. 2. Moderate stenosis of the left L5-S1 intervertebral neural foramen and moderate asymmetric bilateral degenerative facet arthropathy are unchanged. There is, however, mild increased degenerative anterolisthesis of L5 on S1. 3. Mild stenosis of the right L4-L5 intervertebral neural foramen and small L4-L5 posterior bulging annulus. This level is unchanged. 4. Small L3-L4 posterior midline cephalad disc protrusion (series 2, image 7). This is of questionable clinical significance as there is no associated spinal stenosis or nerve root displacement. Mild stenosis of the left L3-L4 intervertebral neural foramen is unchanged. 5. Multiple small bilateral renal cysts. Renal ultrasound will help confirm simple cysts. Electronically Signed: Adrián Servin MD at 12:19 EDT ,
== END | disposition home or self-care (01) ==
PROVIDERS: PCP Family Medicine; Referring Provider Family Medicine; Visit Provider Family Medicine
DX: M54.41 Lumbago with sciatica, right side (principal); R20.0 Anesthesia of skin; F40.240 Claustrophobia
CPT/HCPCS: 72148

== ENCOUNTER 2023-04-15 06:54 | Day surgery (SDC) | payer MEDICARE, SELFPAY ==
[2023-04-15 07:21] VITALS: BP 127/74; PULSE 58; RESP 16; TEMP 36.9; O2SAT 99; BMI 28.3
[2023-04-15] MEDS: Lactated Ringers 1,000 ML 15 ML IV (07:29)
--- NOTE | 2023-04-15 09:01 | RAD_ITS ---
STUDY: INTRAOPERATIVE FLUOROSCOPY TECHNIQUE: The examination was performed with referring physician in attendance. Under fluoroscopic observation, fluoroscopic images were obtained. Radiologist was not present for the study. Radiologist did not perform the procedure. This dictation is for documentation of the radiation dosage only. There is no interpretation of the images. TOTAL NUMBER OF IMAGES: 1 COMPARISON: None RADIATION DOSE: 2.46 mGy FLUOROSCOPY TIME: 7.3 seconds REASON FOR EXAM: MEDIAL BRANCH NERVE BLOCK, L3-S1, RIGHT Male, 82 years old. FINDINGS: Images of the lumbar spine. [place] pointing at the lumbar levels. RAD/L/S Spine Min 4 Views IMPRESSION: Fluoroscopic assistance images were obtained. Dictation for documentation purposes only. Electronically Signed: Alverto Summers MD at 18:32 EDT ,
[2023-04-15] MEDS: MethylPREDNISolone Acetate 80 MG/ML Vial (09:06)
[2023-04-15] MEDS: Lidocaine 1% (5 ml sdv) 5 ML Vial (09:06)
--- NOTE | 2023-04-15 09:12 | OP.PCM_ITS ---
Report of Operation Date of Procedure: 04/15/23 Description of Surgical Findings:: PREOPERATIVE DIAGNOSIS: Lumbosacral spondylosis, lumbosacral degenerative disc disease, lumbar facet arthropathy POSTOPERATIVE DIAGNOSIS: Lumbosacral spondylosis, lumbosacral degenerative disc disease, lumbar facet arthropathy PROCEDURE PERFORMED: Right-sided lumbar medial branch block injection, L3, L4, L5, and S1. ANESTHESIA: MAC. BLOOD LOSS: Minimal. COMPLICATIONS: None. DESCRIPTION OF PROCEDURE: History and physical of today was reviewed. Risks and benefits of the procedure were explained. The patient understood and agreed to proceed. Informed consent was obtained. IV inserted per routine protocol. The patient was taken to the operating room and placed in the prone position with a pillow positioned underneath the abdomen. The right side of her lower back was prepped and draped in a sterile fashion using iodine x3. Under fluoroscopy on oblique view, the L3 through S1 vertebral bodies were visualized. The skin and subcutaneous tissue was anesthetized with approximately 5 mL of 1% lidocaine using a 25-gauge regular needle. Under direct visualization with fluoroscopy, at approximately 25-degree angle starting on the right L3, ending on the right S1, passing through the L4 and L5, using a 22-gauge 3-1/2-inch spinal needle, the needle was advanced via the skin. The tip of the needle was maneuvered and directed towards the superior medial gutter of the transverse process at the vicinity of the medial branch. Once tip of the needle was in contact with the bone, the needle was pulled approximately 2 mm off the bone. After negative aspiration of blood or CSF and confirmation on AP as well as obl ique view, a total of 8 mL of preservative-free 0.25% Marcaine with 80 mg of Depo-Medrol was injected in divided doses between those four levels. The needles were then removed intact. The patient experienced no sign or symptoms of intrathecal or intravascular injection, The patient experienced no paresthesia. The procedure was completed without any apparent difficulty or any complications. The patient appeared to tolerate it well. ASSESSMENT AND PLAN: This is an 82-year-old male with lumbosacral spondylosis, lumbosacral degenerative disc disease, lumbar facet arthropathy status post right-sided lumbar medial branch block L3-S1, patient will continue his current medications, patient will follow approximately 2 weeks for reevaluation.
[2023-04-15 09:13] VITALS: BP 127/74; BP 159/88; PULSE 61; RESP 16; TEMP 36.9; O2SAT 98
[2023-04-15 09:20] VITALS: BP 127/74; BP 180/84; PULSE 62; RESP 18; O2SAT 97
[2023-04-15 09:25] VITALS: BP 127/74; BP 179/85; PULSE 57; RESP 18; O2SAT 96
[2023-04-15 09:31] VITALS: BP 127/74; BP 180/85; PULSE 60; RESP 16; TEMP 36.9; O2SAT 99
[2023-04-15 09:47] VITALS: BP 127/74
== END 2023-04-15 09:53 | disposition home or self-care (01) ==
LOC: SDC 06:56 → AC 06:57
PROVIDERS: PCP Family Medicine; Referring Provider Anesthesiology Pain Medicine; Visit Provider Anesthesiology Pain Medicine
PROC: 3E0S3BZ Introduction of Anesthetic Agent into Epidural Space, Percutaneous Approach (ICD-10-PCS; CPT 62322; principal; 2023-04-15 08:35)
DX: M47.816 Spondylosis without myelopathy or radiculopathy, lumbar region (principal); M46.96 Unspecified inflammatory spondylopathy, lumbar region; N18.30 Chronic kidney disease, stage 3 unspecified; M47.817 Spondylosis without myelopathy or radiculopathy, lumbosacral region; M51.37 Other intervertebral disc degeneration, lumbosacral region; I12.9 Hypertensive chronic kidney disease with stage 1 through stage 4 chronic kidney disease, or unspecified chronic kidney disease; E78.00 Pure hypercholesterolemia, unspecified; J45.909 Unspecified asthma, uncomplicated; E66.9 Obesity, unspecified; Z68.28 Body mass index [BMI] 28.0-28.9, adult; Z79.51 Long term (current) use of inhaled steroids; Z79.891 Long term (current) use of opiate analgesic; Z79.899 Other long term (current) drug therapy; Z87.891 Personal history of nicotine dependence
CPT/HCPCS: 64493; 64494; 64495; 01992; 64483; 72110; J7120

== ENCOUNTER 2024-01-13 07:34 | Day surgery (SDC) | payer MEDICARE, SELFPAY ==
[2024-01-13] VITALS (7 sets, daily range): BP systolic 144–167; BP diastolic 74–88; PULSE 54–69; RESP 16–18; TEMP 36.4–36.9; O2SAT 96–98; BMI 20.5
[2024-01-13] MEDS: Lactated Ringers 1,000 ML 15 ML IV (08:23)
--- NOTE | 2024-01-13 08:50 | RAD_ITS ---
PROCEDURE: Caudal epidural steroid injection. DATE OF EXAMINATION: January 13, 2024. INDICATION: Male, 83 years old. Chronic lower back pain. FLUOROSCOPY TIME (if supplied): (1 second) minutes/seconds. 0.57 mGy. One spot image was submitted. RAD/Spine 1 View Any Level IMPRESSION: Intraoperative imaging provided for caudal epidural steroid injection. Electronically Signed: Mick Adamson MD at 9:34 EDT ,
[2024-01-13] MEDS: 0.9% Normal Saline (Pres. free 10 ML Vial (08:53)
[2024-01-13] MEDS: Lidocaine 1% (5 ml sdv) 5 ML Vial (08:53)
[2024-01-13] MEDS: MethylPREDNISolone Acetate 80 MG/ML Vial (08:53)
--- NOTE | 2024-01-13 08:56 | OP.PCM_ITS ---
Report of Operation Date of Procedure: 01/13/24 Pre-Operative Diagnosis: Lumbosacral radiculopathy, lumbosacral degenerative di sc disease, lumbosacral spinal stenosis Post-Operative Diagnosis: Lumbosacral radiculopathy, lumbosacral degenerative disc disease, lumbosacral spinal stenosis Surgery/Procedure Performed:: Diagnostic/therapeutic caudal epidural steroid injection under fluoroscopic guidance Type of Anesthesia: MAC Estimated Blood Loss (mL): Minimal Description of Procedure: DESCRIPTION OF PROCEDURE: History and physical of today was reviewed. Risks and benefits of the procedure were explained. The patient understood and agreed to proceed. Informed consent was obtained. IV inserted per routine protocol. The patient was taken to the operating room and placed in the prone position with a pillow positioned underneath the abdomen. The lower back and tailbone area was prepped and draped in a sterile fashion using iodine x3. Under fluoroscopy guidance on a lateral view, the caudal space was identified. The skin and subcutaneous tissue was anesthetized with approximately 3 mL of 1% lidocaine using a 25-gauge regular needle. Under direct visualization with fluoroscopy, using a 22-gauge 3-1/2-inch spinal needle, the needle was advanced via the skin through the sacral hiatus. The tip of the needle was passed through the sacrococcygeal ligament and advanced to approximately S4 area. After negative aspiration of blood or CSF, a total of 3 mL of contrast was injected to confirm correct placement of the needle as well as cephalad spread. The spread was followed to approximately L5 area. After confirmation on AP as well as lateral view and repeated negative aspiration, a total of 15 mL of preservative-free 0.125% Marcaine with 80 mg of Depo-Medrol was injected easily. The needle was then removed intact. The patient experienced no sign or symptoms of intrathecal or intravascular injection. The patient experienced no paresthesia. The procedure was completed without any apparent difficulty or any complications. The patient appeared to tolerate it well. ASSESSMENT AND PLAN: This is an 83-year-old male with lumbosacral radiculopathy, lumbosacral degenerative disc disease, lumbosacral spinal stenosis status post diagnostic/therapeutic caudal epidural steroid injection, patient will continue his current medications, patient will follow in approximately 2 weeks for reevaluation. Complications None
== END 2024-01-13 09:53 | disposition home or self-care (01) ==
LOC: SDC 07:34 → AC 07:38
PROVIDERS: PCP Family Medicine; Referring Provider Family Medicine; Visit Provider Anesthesiology Pain Medicine
PROC: 3E0S3BZ Introduction of Anesthetic Agent into Epidural Space, Percutaneous Approach (ICD-10-PCS; CPT 62282; principal; 2024-01-13 09:05)
DX: M51.17 Intervertebral disc disorders with radiculopathy, lumbosacral region (principal); M46.96 Unspecified inflammatory spondylopathy, lumbar region; N18.30 Chronic kidney disease, stage 3 unspecified; M48.07 Spinal stenosis, lumbosacral region; M47.817 Spondylosis without myelopathy or radiculopathy, lumbosacral region; I12.9 Hypertensive chronic kidney disease with stage 1 through stage 4 chronic kidney disease, or unspecified chronic kidney disease; E78.00 Pure hypercholesterolemia, unspecified; Z79.899 Other long term (current) drug therapy; Z87.891 Personal history of nicotine dependence
CPT/HCPCS: 62323; 01992; 64483; 72020; 76000; J7120; J3490

== ENCOUNTER → 2024-03-03 | Outpatient (CLI) | payer MEDICARE, SELFPAY ==
--- NOTE | 2024-03-03 13:53 | ECHOD_ITS ---
Reason For Study: HTN Procedure This was a 2D Doppler, Color Flow transthoracic echocardiogram. Exam performed in department. Left Ventricle Normal LV size. Mild concentric left ventricular hypertrophy. The left ventricular ejection fraction is 60 %. Stage 1 diastolic dysfunction. No regional wall motion abnormalities noted. Right Ventricle Normal RV size. Normal systolic function. Atria Normal left atrium. Normal right atrium. Mitral Valve Normal mitral valve. Mild (1+) mitral valve insufficiency. Tricuspid Valve Normal tricuspid valve. Mild (1+) tricuspid valve insufficiency. Pulmonary artery systolic pressure is 32 mmHg. Aortic Valve Trisinus/trileaflet aortic valve. Mild (1+) aortic valve insufficiency. Pulmonic Valve Normal pulmonic valve. Great Vessels Normal aortic root. The pulmonary artery is normal size. Normal inferior vena cava. Pericardium/Pleural No pericardial effusion. MMode/2D Measurements & Calculations LVIDd: 4.1 cm IVSd: 1.6 cm Ao root diam: 3.8 cm LVIDs: 2.7 cm LVPWd: 1.2 cm RVDd: 3.2 cm FS: 34.4 % LAV(MOD-sp4): 43.0 ml LVAd ap4: 27.5 cm2 LVAd ap2: 23.9 cm2 LVLd ap4: 8.3 cm LVLd ap2: 7.4 cm EDV(MOD-sp4): 75.6 ml EDV(MOD-sp2): 63.9 ml EDV(sp4-el): 77.5 ml EDV(sp2-el): 65.6 ml LVAs ap4: 16.7 cm2 LVAs ap2: 14.5 cm2 LVLs ap4: 7.6 cm LVLs ap2: 7.9 cm ESV(MOD-sp4): 31.0 ml ESV(MOD-sp2): 23.8 ml ESV(sp4-el): 31.1 ml ESV(sp2-el): 22.4 ml EF(MOD-sp4): 58.9 % EF(MOD-sp2): 62.8 % EF(sp4-el): 59.8 % SV(MOD-sp4): 44.6 ml SV(MOD-sp2): 40.1 ml SV(sp4-el): 46.4 ml LA dimension(2D): 4.5 cm LA A4 area: 17.0 cm2 RA A4 area: 12.3 cm2 TAPSE: 1.5 cm Time Measurements MV dec time: 0.26 sec Doppler Measurements & Calculations MV E max nathen: 62.3 cm/sec Lat Peak E' Nathen: 8.0 cm/sec Med Peak E' Nathen: 4.8 cm/sec MV A max nathen: 81.0 cm/sec E/E' lat: 7.8 E/E' med: 13.1 MV E/A: 0.77 MV dec slope: 235.7 cm/sec2 Ao V2 max: 118.5 cm/sec LV V1 max: 90.2 cm/sec Ao max P.6 mmHg LV V1 max P.3 mmHg Ao V2 mean: 88.0 cm/sec LV V1 mean P.7 mmHg Ao mean P.3 mmHg LV V1 mean: 62.8 cm/sec Ao V2 VTI: 27.8 cm LV V1 VTI: 21.5 cm AV (velocity ratio): 0.77 PA V2 max: 78.7 cm/sec TR max nathen: 266.3 cm/sec TR max P.4 mmHg ECHO/Echo Complete Interpretation Summary Normal LV size. The left ventricular ejection fraction is 60 %. Stage 1 diastolic dysfunction. Pulmonary artery systolic pressure is 32 mmHg. Mild (1+) aortic valve insufficiency. Ordering Physician: Joseph Banerjee Referring Physician: Gisel Burch Performed By: Virgie Peñaloza RDCS
== END | disposition home or self-care (01) ==
PROVIDERS: PCP Family Medicine; Referring Provider Internal Medicine Cardiovascular Disease; Visit Provider Internal Medicine Cardiovascular Disease
DX: I10 Essential (primary) hypertension (principal); I34.0 Nonrheumatic mitral (valve) insufficiency
CPT/HCPCS: 93306

== ENCOUNTER 2025-01-11 07:28 | Day surgery (SDC) | payer MEDICARE, SELFPAY ==
--- NOTE | 2025-01-08 14:25 | PAT.ANESEVAL ---
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 When Was Last Pacemaker Check QUESTION #4 FULL TEXT: You/Your Family Experience fever (hyperthermia) with Anesthesia Last Oral Intake Last Oral intake: Last Oral Intake NPO since Meds taken in AM with sips of water? 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 family teacher Female No 01/08/25 11:46 HX of Motion Sickness No 01/08/25 11:46 HX of N/V After Surgery No 01/08/25 11:46 Non-Smoker Yes 01/08/25 11:46 Duration of Surgery greater No 01/08/25 11:46 than 60 minutes Number of Risk Factors 1 01/08/25 11:46 PONV Score Low Risk 01/08/25 11:46 Height & Weight Height & Weight: Anesthesia: Height & Weight Height 6 ft 7 in 02/04/24 14:24 Respiratory Assessment Respiratory Assessment - marriage and family teacher: Respiratory Tract Infection Hx - marriage and family teacher Hx Respiratory Tract Infection No 01/08/25 11:46 STOP Sleep Apnea STOP Sleep Apnea - marriage and family teacher: STOP Sleep Apnea - marriage and family teacher Hx Hypertension Yes: CONTROLLED ON MED 01/08/25 11:46 Hx Sleep Apnea No 01/08/25 11:46 CPAP BIPAP Do you snore loudly (louder No 01/08/25 11:46 than talking or can be heard Do you often feel tired/ No 01/08/25 11:46 fatigued/ sleepy during daytime? Has anyone observed you stop No 01/08/25 11:46 breathing during sleep? STOP Results Negative 01/08/25 11:46 QUESTION #5 FULL TEXT : Do you snore loudly (louder than talking or can be heard through closed doors)? 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 Specify any problems Hx of Preganancy in last 3 N/A 01/08/25 11:46 Months Nurse Filling Out Transfusion NBUCHER 01/08/25 11:46 & Questions: Date: 01/08/25 01/08/25 11:46 Time: 11:48 01/08/25 11:46 Patient unable to answer at this time (ie. confused, unrespo /Reproduction History /Reproductive History - marriage and family teacher: /Reproductive Hx- marriage and family teacher Hx Now Gestational Age (in weeks): EDC: Hx Hx Para Hx Section SAB PFSH Medical History (Updated 01/08/25 @ 11:51 by Mila Shea) Macular hole Mitral valve regurgitation History of steroid therapy Arthritis High cholesterol Non-smoker History of edema Cardiology follow-up encounter Wears glasses Cancer Alcohol use Easy bruising Brain aneurysm History of renal disease Asthma Obesity HLD (hyperlipidemia) Essential (primary) hypertension Spinal stenosis of lumbosacral region Degeneration of intervertebral disc of lumbosacral region Radiculopathy of lumbosacral region Home Medications ?Medication ?Instructions ?Recorded ?Last Taken ?Type cholecalciferol (vitamin D3) 50 2,000 unit PO DAILY 09/30/17 Unknown History mcg (2,000 unit) capsule fluticasone propionate 220 1 puff inhalation BID 09/30/17 09/30/17 07:00 History mcg/actuation HFA aerosol inhaler 1 PUFF (Flovent HFA) metoprolol tartrate 100 mg tablet 100 mg PO BID 09/30/17 01/13/24 06:08 History saw palmetto 450 mg capsule 450 mg PO BID 09/30/17 Unknown History simvastatin 10 mg tablet 10 mg PO MOWEFR 09/30/17 Unknown History doxazosin 4 mg tablet (Cardura) 4 mg PO QHS 09/15/19 Unknown History lisinopril 40 mg tablet 60 mg PO DAILY 11/11/20 01/13/24 06:08 History vitamins A,C,D-diky-hydiwa 2,148 2 tab PO BID 12/26/22 Unknown History mcg-113 mg-45 mg-17.4 mg tablet (PreserVision AREDS) chlorthalidone 25 mg tablet 12.5 mg PO DAILY 04/15/23 01/13/24 06:08 History Allergy/AdvReac Type Severity Reaction Status Date / Time ciprofloxacin (From Cipro) Allergy Swelling Verified 01/08/25 11:43 Family History Father CVA (cerebral vascular accident) Brother CAD (coronary artery disease) CVA (cerebral vascular accident) Mother CVA (cerebral vascular accident) Surgical History History of cholecystectomy Hx of colonoscopy History of hernia repair Social History Smoking Status: Former smoker alcohol intake: never Audit: Pertinent Findings Pertinent Findings Echo (EF%) pertinent findings: 03/03/2024. Normal size function EF 60%. Pulmonary artery pressure 32. Consult pertinent findings: Cardiology 02/04/2024. Hypertension. Controlled with meds. Check echo to assess left ventricular function. Recommendation Anesthesia Recommendation Anesthesia recommendation: OPTIMIZED for anesthesia
[2025-01-11] VITALS (8 sets, daily range): BP systolic 141–166; BP diastolic 67–84; PULSE 57–65; RESP 14–18; TEMP 36.2–36.9; O2SAT 97–99; BMI 29.4
[2025-01-11] MEDS: Lidocaine 1% (5 ml sdv) 5 ML Vial (07:39)
--- NOTE | 2025-01-11 09:06 | PRE.ANES_ITS ---
ASA Classification* ASA Classification ASA Classification: 2 Assessment & Plan Anesthesia* Anesthesia Assessment Anesthesia Assessment: Discussed sedation and/or anesthesia options, risks, benefits, and alternatives with patient/parents/legal guardian/POA. Questions invited. The patient/parents/legal guardian/POA seems to understand and agrees to proceed with anesthesia plan. Reviewed the physical assessment, medical history, allergy history and patient home medications list prior to surgery/procedure/anesthetic and documented any changes. Performed airway and anesthesia risk assessments. Anesthesia Type Anesthesia Type: MAC History Source History Obtained from:: Patient and Chart Anesthesia Focused Assessment* Temperature: 97.1 F Pulse Rate: 57 Blood Pressure: 166/69 Respiratory Rate: 18 Pulse Ox: 99 Oxygen Delivery Method: Room Air Airway Assessment Mouth opens: >3 cm Mallampati Score: III Teeth Condition: Caps/Crowns (Patient has several crowns. They are tight.) Neck Range of motion (ROM): Limited ROM Focused Labs Anesthesia Preop lab: CBC WBC 4.7 K/mm3 (4.4-11.0) 01/29/22 09:01/29/22 RBC 4.39 M/mm3 (4.6-6.2) L 01/29/22 09:01/29/22 Hgb 14.1 g/dL (13.0-16.5) 01/29/22 09:01/29/22 Hct 40.2 % (40-54) 01/29/22 09:01/29/22 Plt Count 125 K/mm3 (150-450) L 01/29/22 09:01/29/22 CHEMISTRY Potassium 3.5 mmol/L (3.5-5.1) 01/29/22 09:01/29/22 Sodium 139 mmol/L (136-145) 01/29/22 09:01/29/22 Magnesium 2.0 mg/dL (1.6-2.6) 01/29/22 09:01/29/22 Phosphorus 3.5 mg/dL (2.5-4.9) 01/29/22 09:01/29/22 BUN 45 mg/dL (7-18) H 01/29/22 09:01/29/22 Creatinine 1.61 mg/dL (0.70-1.30) H 01/29/22 09:33 Glucose 99 mg/dL (74-106) 01/29/22 09:33 01/29/22 TSH 0.74 uIU/mL (0.358-3.74) 12/24/20 07:35 COAG PT 14.4 SECONDS (11.7-14.9) 10/22/19 11:58 Pre-Assessment Diagnosis/Proposed Procedure Planned Operative Procedure(s): CAUDAL BLOCK Anesthesia History 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 When Was Last Pacemaker Check QUESTION #4 FULL TEXT: You/Your Family Experience fever (hyperthermia) with Anesthesia Last Oral Intake Last Oral intake: Last Oral Intake NPO since 22:00 01/11/25 07:54 Meds taken in AM with sips of water? Meds patient instructed to take am of surgery Any additional information?: Yes Meds taken in AM with sips of water?: Yes PONV PONV - amusement centre manager: PONV - amusement centre manager Female No 01/08/25 11:46 HX of Motion Sickness No 01/08/25 11:46 HX of N/V After Surgery No 01/08/25 11:46 Non-Smoker Yes 01/08/25 11:46 Duration of Surgery greater No 01/08/25 11:46 than 60 minutes Number of Risk Factors 1 01/08/25 11:46 PONV Score Low Risk 01/08/25 11:46 Height & Weight Height & Weight: Anesthesia: Height & Weight Height 5 ft 7 in 01/11/25 07:54 Weight: 85.2 kg 01/11/25 07:54 Body Mass Index (BMI) 29.4 01/11/25 07:54 Respiratory Assessment Respiratory Assessment - amusement centre manager: Respiratory Tract Infection Hx - amusement centre manager Hx Respiratory Tract Infection No 01/08/25 11:46 STOP Sleep Apnea STOP Sleep Apnea - amusement centre manager: STOP Sleep Apnea - amusement centre manager Hx Hypertension Yes: CONTROLLED ON MED 01/08/25 11:46 Hx Sleep Apnea No 01/08/25 11:46 CPAP BIPAP Do you snore loudly (louder No 01/08/25 11:46 than talking or can be heard Do you often feel tired/ No 01/08/25 11:46 fatigued/ sleepy during daytime? Has anyone observed you stop No 01/08/25 11:46 breathing during sleep? STOP Results Negative 01/08/25 11:46 QUESTION #5 FULL TEXT : Do you snore loudly (louder than talking or can be heard through closed doors)? 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 Specify any problems Hx of Preganancy in last 3 N/A 01/08/25 11:46 Months Nurse Filling Out Transfusion NBUCHER 01/08/25 11:46 & Questions: Date: 01/08/25 01/08/25 11:46 Time: 11:48 01/08/25 11:46 Patient unable to answer at this time (ie. confused, unrespo /Reproduction History /Reproductive History - amusement centre manager: /Reproductive Hx- amusement centre manager Hx Now Gestational Age (in weeks): EDC: Hx Hx Para Hx Section SAB PFSH Medical History Macular hole Mitral valve regurgitation History of steroid therapy Arthritis High cholesterol Non-smoker History of edema Cardiology follow-up encounter Wears glasses Cancer Alcohol use Easy bruising Brain aneurysm History of renal disease Asthma Obesity HLD (hyperlipidemia) Essential (primary) hypertension Spinal stenosis of lumbosacral region Degeneration of intervertebral disc of lumbosacral region Radiculopathy of lumbosacral region Home Medications ?Medication ?Instructions ?Recorded ?Last Taken ?Type cholecalciferol (vitamin D3) 50 2,000 unit PO DAILY 01/10/25 History mcg (2,000 unit) capsule fluticasone propionate 220 1 puff inhalation BID 09/3001/09/25 History mcg/actuation HFA aerosol inhaler (Flovent HFA) metoprolol tartrate 100 mg tablet 100 mg PO BID 01/11/25 History saw palmetto 450 mg capsule 450 mg PO BID 09/30/17 History simvastatin 10 mg tablet 10 mg PO MOWEFR 09/30/17 History doxazosin 4 mg tablet (Cardura) 4 mg PO QHS 09/15/19 0 01/10/25 History lisinopril 40 mg tablet 60 mg PO DAILY 11/11/2012/26 History vitamins A,C,S-txou-brwoof 2,148 2 tab PO BID 12/26/22 01/10/25 History mcg-113 mg-45 mg-17.4 mg tablet (PreserVision AREDS) chlorthalidone 25 mg tablet 12.5 mg PO DAILY 04/15/23 01/10/25 History Allergy/AdvReac Type Severity Reaction Status Date / Time ciprofloxacin (From Cipro) Allergy Swelling Verified 01/11/25 07:53 Family History Father CVA (cerebral vascular accident) Brother CAD (coronary artery disease) CVA (cerebral vascular accident) Mother CVA (cerebral vascular accident) Surgical History History of cholecystectomy Hx of colonoscopy History of hernia repair Social History Smoking Status: Former smoker alcohol intake: never Review of Systems (Anesthesia) ROS Narrative System reviewed and no additional complaints, except as documented.
--- NOTE | 2025-01-11 09:35 | RAD_ITS ---
PROCEDURE: Fluoroscopy use. 01/11/2025 REASON FOR EXAM: BLOCK, CAUDAL TECHNIQUE: A single spot image was obtained during caudal nerve block. 6.2 seconds of fluoroscopic time utilized. COMPARISON: None. FINDINGS: A single intraoperative lateral spot image of the sacrum was obtained during caudal nerve block. Needle tip projects over the distal aspect of the sacrum on the provided image. RAD/Fluor Guidance for Spine Inj IMPRESSION: Documentation of fluoroscopy use during caudal nerve block. Please see the pro cedure note for details. Reading Location: [facility]
[2025-01-11] MEDS: 0.9% Normal Saline (Pres. free 10 ML Vial (09:45)
[2025-01-11] MEDS: MethylPREDNISolone Acetate 80 MG/ML Vial (09:45)
[2025-01-11] MEDS: Bupivacaine 0.25% 30 ML Vial (09:46)
--- NOTE | 2025-01-11 09:57 | PCM.POST.ANE ---
Anesthesia: Postop Eval I Current Vital Signs Temperature: 98.3 F Pulse Rate: 62 Blood Pressure: 145/84 Respiratory Rate: 14 Pulse Ox: 98 Oxygen Delivery Method: Room Air Assessment Airway patent: Yes Spontaneous unlabored respirations: Yes Mental status: Awake nausea: No Vomiting: No Anesthesia Complication: No Fluid Hydration Crystalloid volume administer (ml): 10 Total IV fluid infused: 10 Progress Note Anesthesia document: Postop Eval 1 completed: Yes
--- NOTE | 2025-01-11 10:08 | OP.PCM_ITS ---
Operative Report (Standard) Operative Information Date of Procedure: 01/11/25 Pre-Operative Diagnosis: 1 Post-Operative Diagnosis: 1 Surgery/Procedure Performed: 1 associate web developer: No Type of Anesthesia: Local MAC RN Documented Start/Stop Times: Operation Date: 01/11/25 09:20 Case Time Into Pre-Op 01/11/25 07:17 Anesthesia Start 01/11/25 09:38 Into Room 01/11/25 09:38 Procedure End 01/11/25 09:47 Anesthesia End 01/11/25 09:50 Into Recovery 01/11/25 09:50 Out of Room 01/11/25 09:50 Out of Recovery 01/11/25 10:05 Procedure Start Time: 10:08 Procedure Stop Time: 10:08 Select all DRAINS/GRAFTS/IMPLANTS that apply: None Estimated Blood Loss: 1 Specimen collected: No Description of surgery: Pre-Operative Diagnosis: Lumbosacral radiculopathy, lumbosacral degenerative disc disease, lumbosacral spinal stenosis Post-Operative Diagnosis: Lumbosacral radiculopathy, lumbosacral degenerative disc disease, lumbosacral spinal stenosis Surgery/Procedure Performed:: Diagnostic/therapeutic caudal epidural steroid injection under fluoroscopic guidance Type of Anesthesia: MAC Estimated Blood Loss (mL): Minimal Description of Procedure: DESCRIPTION OF PROCEDURE: History and physical of today was reviewed. Risks and benefits of the procedure were explained. The patient understood and agreed to proceed. Informed consent was obtained. IV inserted per routine protocol. The patient was taken to the operating room and placed in the prone position with a pillow positioned underneath the abdomen. The lower back and tailbone area was prepped and draped in a sterile fashion using iodine x3. Under fluoroscopy guidance on a lateral view, the caudal space was identified. The skin and subcutaneous tissue was anesthetized with approximately 3 mL of 1% lidocaine using a 25-gauge regular needle. Under direct visualization with fluoroscopy, using a 22-gauge 3-1/2-inch spinal needle, the needle was advanced via the skin through the sacral hiatus. The tip of the needle was passed through the sacrococcygeal ligament and advanced to approximately S4 area. After negative aspiration of blood or CSF, a total of 3 mL of contrast was injected to confirm correct placement of the needle as well as cephalad spread. The spread was followed to approximately L5 area. After confirmation on AP as well as lateral view and repeated negative aspiration, a total of 15 mL of preservative-free 0.125% Marcaine with 80 mg of Depo-Medrol was injected easily. The needle was then removed intact. The patient experienced no sign or symptoms of intrathecal or intravascular injection. The patient experienced no paresthesia. The procedure was completed without any apparent difficulty or any complications. The patient appeared to tolerate it well. ASSESSMENT AND PLAN: This is an 84-year-old male with lumbosacral radiculopathy, lumbosacral d egenerative disc disease, lumbosacral spinal stenosis status post diagnostic/therapeutic caudal epidural steroid injection, patient will continue his current medications, patient will follow in approximately 2 weeks for reevaluation. Surgical Findings: 1 Complications Complications: No Admit VTE Documentation VTE Present on Admission: No VTE Mechan Device Prophylaxis: None VTE Pharm Prophylaxis ordered?: No
--- NOTE | 2025-01-11 10:26 | POSTOPAN2_ITS ---
Anesthesia Postop Eval I Sum Postop Eval Completion status Anesthesia document: Postop Eval 1 completed: Yes Anesthesia Postop Eval I Summary Anesthesia Postop Eval I Summary: Anesthesia Postop Eval I: Assessment Summary Airway patent Yes 01/11/25 09:57 DISCHARGE COORDINATOR.[email or web address] Spontaneous unlabored Yes 01/11/25 09:57 DISCHARGE COORDINATOR.[email or web address] respirations Mental status Awake 01/11/25 09:57 DISCHARGE COORDINATOR.[email or web address] nausea No 01/11/25 09:57 DISCHARGE COORDINATOR.[email or web address] Vomiting No 01/11/25 09:57 DISCHARGE COORDINATOR.LMIL Anesthesia Postop Eval I: Fluid Summary Crystalloid volume administer 10 01/11/25 09:57 DISCHARGE COORDINATOR.LMIL (ml) Colloids volume administered ( ml) Blood Product volume administered (ml) Total IV fluid infused 10 01/11/25 09:57 DISCHARGE COORDINATOR.LMIL Anesthesia Postop Eval I: Summary Notes Anesthesia Complication No 01/11/25 09:57 DISCHARGE COORDINATOR.LMIL Anesthesia Complication Comment: Post-operative progress note Anesthesia: Postop Eval II Evaluation Mental status: Awake Pain Level: 2 nausea: No Vomiting: No
--- NOTE | 2025-01-11 10:26 | PCM.POSTANE2 ---
Anesthesia Postop Eval I Sum Postop Eval Completion status Anesthesia document: Postop Eval 1 completed: Yes Anesthesia Postop Eval I Summary Anesthesia Postop Eval I Summary: Anesthesia Postop Eval I: Assessment Summary Airway patent Yes 01/11/25 09:57 BAD CREDIT COLLECTOR.[email or web address] Spontaneous unlabored Yes 01/11/25 09:57 BAD CREDIT COLLECTOR.LMIL respirations Mental status Awake 01/11/25 09:57 BAD CREDIT COLLECTOR.[email or web address] nausea No 01/11/25 09:57 BAD CREDIT COLLECTOR.[email or web address] Vomiting No 01/11/25 09:57 BAD CREDIT COLLECTOR.LMIL Anesthesia Postop Eval I: Fluid Summary Crystalloid volume administer 10 01/11/25 09:57 BAD CREDIT COLLECTOR.LMIL (ml) Colloids volume administered ( ml) Blood Product volume administered (ml) Total IV fluid infused 10 01/11/25 09:57 BAD CREDIT COLLECTOR.LMIL Anesthesia Postop Eval I: Summary Notes Anesthesia Complication No 01/11/25 09:57 BAD CREDIT COLLECTOR.LMIL Anesthesia Complication Comment: Post-operative progress note Anesthesia: Postop Eval II Evaluation Mental status: Awake Pain Level: 2 nausea: No Vomiting: No
== END 2025-01-11 10:28 | disposition home or self-care (01) ==
PROVIDERS: PCP Family Medicine; Referring Provider Anesthesiology Pain Medicine; Visit Provider Anesthesiology Pain Medicine
PROC: 3E0S3BZ Introduction of Anesthetic Agent into Epidural Space, Percutaneous Approach (ICD-10-PCS; CPT 62282; principal; 2025-01-11 09:15)
DX: M51.17 Intervertebral disc disorders with radiculopathy, lumbosacral region (principal); M48.07 Spinal stenosis, lumbosacral region; I10 Essential (primary) hypertension; I34.0 Nonrheumatic mitral (valve) insufficiency; E78.00 Pure hypercholesterolemia, unspecified; J45.909 Unspecified asthma, uncomplicated; Z88.1 Allergy status to other antibiotic agents; Z90.49 Acquired absence of other specified parts of digestive tract; Z79.51 Long term (current) use of inhaled steroids; Z79.899 Other long term (current) drug therapy; Z87.891 Personal history of nicotine dependence
CPT/HCPCS: 62323; 64483; 77003; A4216

== ENCOUNTER 2025-05-17 08:03 | Day surgery (SDC) | payer MEDICARE, SELFPAY ==
--- NOTE | 2025-05-11 17:51 | PAT.ANE_ITS ---
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 When Was Last Pacemaker Check QUESTION #4 FULL TEXT: You/Your Family Experience fever (hyperthermia) with Anesthesia Last Oral Intake Last Oral intake: Last Oral Intake NPO since Meds taken in AM with sips of water? Meds patient instructed to take am of surgery PONV PONV - patient relations coordinator: PONV - patient relations coordinator Female No 05/11/25 10:07 HX of Motion Sickness No 05/11/25 10:07 HX of N/V After Surgery No 05/11/25 10:07 Non-Smoker Yes 05/11/25 10:07 Duration of Surgery greater No 05/11/25 10:07 than 60 minutes Number of Risk Factors 1 05/11/25 10:07 PONV Score Low Risk 05/11/25 10:07 Height & Weight Height & Weight: Anesthesia: Height & Weight Height 5 ft 6 in 01/16/25 09:43 Respiratory Assessment Respiratory Assessment - patient relations coordinator: Respiratory Tract Infection Hx - patient relations coordinator Hx Respiratory Tract Infection No 05/11/25 10:07 STOP Sleep Apnea STOP Sleep Apnea - patient relations coordinator: STOP Sleep Apnea - patient relations coordinator Hx Hypertension Yes: CONTROLLED ON MED 05/11/25 10:07 Hx Sleep Apnea No 05/11/25 10:07 CPAP BIPAP Do you snore loudly (louder No 05/11/25 10:07 than talking or can be heard Do you often feel tired/ No 05/11/25 10:07 fatigued/ sleepy during daytime? Has anyone observed you stop No 05/11/25 10:07 breathing during sleep? STOP Results Negative 05/11/25 10:07 QUESTION #5 FULL TEXT : Do you snore loudly (louder than talking or can be heard through closed doors)? 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 Specify any problems Hx of Preganancy in last 3 N/A 05/11/25 10:07 Months Nurse Filling Out Transfusion [email or web address] 05/11/25 10:07 & Questions: Date: 05/11/25 05/11/25 10:07 Time: 10:09 05/11/25 10:07 Patient unable to answer at this time (ie. confused, unrespo /Reproduction History /Reproductive History - patient relations coordinator: /Reproductive Hx- patient relations coordinator Hx Now Gestational Age (in weeks): EDC: Hx Hx Para Hx Section SAB PFSH Medical History (Updated 05/11/25 @ 10:15 by Suraj Hogan) Back pain Former smoker History of echocardiogram Macular hole Mitral valve regurgitation History of steroid therapy Arthritis High cholesterol Non-smoker History of edema Cardiology follow-up encounter Wears glasses Cancer Easy bruising Brain aneurysm History of renal disease Asthma Obesity HLD (hyperlipidemia) Essential (primary) hypertension Spinal stenosis of lumbosacral region Degeneration of intervertebral disc of lumbosacral region Radiculopathy of lumbosacral region Home Medications ?Medication ?Instructions ?Recorded ?Last Taken ?Type cholecalciferol (vitamin D3) 50 2,000 unit PO DAILY 01/10/25 History mcg (2,000 unit) capsule fluticasone propionate 220 1 puff inhalation BID 09/3001/09/25 History mcg/actuation HFA aerosol inhaler (Flovent HFA) metoprolol tartrate 100 mg tablet 100 mg PO BID 01/11/25 History saw palmetto 450 mg capsule 450 mg PO BID 09/30/17 History simvastatin 10 mg tablet 10 mg PO MOWEFR 09/30/17 History doxazosin 4 mg tablet (Cardura) 4 mg PO QHS 09/15/19 0 01/10/25 History lisinopril 40 mg tablet 60 mg PO DAILY 11/11/2012/26 History vitamins A,C,N-lshm-ihlsxg 2,148 2 tab PO BID 12/26/22 01/10/25 History mcg-113 mg-45 mg-17.4 mg tablet (PreserVision AREDS) chlorthalidone 25 mg tablet 12.5 mg PO DAILY 04/15/23 01/10/25 History Allergy/AdvReac Type Severity Reaction Status Date / Time ciprofloxacin (From Cipro) Allergy Swelling Verified 05/11/25 10:05 Family History Father CVA (cerebral vascular accident) Brother CAD (coronary artery disease) CVA (cerebral vascular accident) Mother CVA (cerebral vascular accident) Surgical History History of cholecystectomy Hx of colonoscopy History of hernia repair Social History Smoking Status: Former smoker alcohol intake: never Audit: Pertinent Findings Pertinent Findings Echo (EF%) pertinent findings: 03/03/2024. EF is 60%. PASP is 32 mmHg. No aortic stenosis noted. 1+ mitral valve insufficiency. Consult pertinent findings: 02/04/2024. Dr. Banerjee. 1. Hypertension?chronic-controlled. No medication changes at this time. Patient continues to be quite active. Repeat echo to assess ventricular function and reassess mitral valve. (See above). Recommendation Anesthesia Recommendation Anesthesia recommendation: F/U recommended (If there was supposed to be an EKG I do not see it.)
--- NOTE | 2025-05-12 16:39 | PAT.ANESEVAL ---
Pre-Assessment Diagnosis/Proposed Procedure Planned Operative Procedure(s): RIGHT SIDED LUMBAR MEDIAL BRNACH BLOCK L4, L5, S1 UNDER FLUOROSCOPY Anesthesia History Anesthesia History - special education tutor: Anesthesia History - special education tutor Hx Hospitalization No 05/11/25 10:07 Any Problems With Anesthesia No 05/11/25 10:07 Cholinesterase deficiency No 05/11/25 10:07 You/Your Family Experience No 05/11/25 10:07 fever (hyperthermia) with Relationship Recent Exposure to Contagious No 01/11/25 07:54 Disease Does patient have nerve No 05/11/25 10:07 stimulator Patient instructed to have device shut off --Does patient have Pacemaker or ICD? When Was Last Pacemaker Check QUESTION #4 FULL TEXT: You/Your Family Experience fever (hyperthermia) with Anesthesia Last Oral Intake Last Oral intake: Last Oral Intake NPO since Meds taken in AM with sips of water? Meds patient instructed to take am of surgery PONV PONV - special education tutor: PONV - special education tutor Female No 05/11/25 10:07 HX of Motion Sickness No 05/11/25 10:07 HX of N/V After Surgery No 05/11/25 10:07 Non-Smoker Yes 05/11/25 10:07 Duration of Surgery greater No 05/11/25 10:07 than 60 minutes Number of Risk Factors 1 05/11/25 10:07 PONV Score Low Risk 05/11/25 10:07 Height & Weight Height & Weight: Anesthesia: Height & Weight Height 5 ft 6 in 01/16/25 09:43 Respiratory Assessment Respiratory Assessment - special education tutor: Respiratory Tract Infection Hx - special education tutor Hx Respiratory Tract Infection No 05/11/25 10:07 STOP Sleep Apnea STOP Sleep Apnea - special education tutor: STOP Sleep Apnea - special education tutor Hx Hypertension Yes: CONTROLLED ON MED 05/11/25 10:07 Hx Sleep Apnea No 05/11/25 10:07 CPAP BIPAP Do you snore loudly (louder No 05/11/25 10:07 than talking or can be heard Do you often feel tired/ No 05/11/25 10:07 fatigued/ sleepy during daytime? Has anyone observed you stop No 05/11/25 10:07 breathing during sleep? STOP Results Negative 05/11/25 10:07 QUESTION #5 FULL TEXT : Do you snore loudly (louder than talking or can be heard through closed doors)? 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 Specify any problems Hx of Preganancy in last 3 N/A 05/11/25 10:07 Months Nurse Filling Out Transfusion [email or web address] 05/11/25 10:07 & Questions: Date: 05/11/25 05/11/25 10:07 Time: 10:09 05/11/25 10:07 Patient unable to answer at this time (ie. confused, unrespo /Reproduction History /Reproductive History - special education tutor: /Reproductive Hx- special education tutor Hx Now Gestational Age (in weeks): EDC: Hx Hx Para Hx Section SAB PFSH Medical History Back pain Former smoker History of echocardiogram Macular hole Mitral valve regurgitation History of steroid therapy Arthritis High cholesterol Non-smoker History of edema Cardiology follow-up encounter Wears glasses Cancer Easy bruising Brain aneurysm History of renal disease Asthma Obesity HLD (hyperlipidemia) Essential (primary) hypertension Spinal stenosis of lumbosacral region Degeneration of intervertebral disc of lumbosacral region Radiculopathy of lumbosacral region Home Medications ?Medication ?Instructions ?Recorded ?Last Taken ?Type cholecalciferol (vitamin D3) 50 2,000 unit PO DAILY 09/30/17 01/10/25 History mcg (2,000 unit) capsule fluticasone propionate 220 1 puff inhalation BID 09/30/17 01/09/25 History mcg/actuation HFA aerosol inhaler (Flovent HFA) metoprolol tartrate 100 mg tablet 100 mg PO BID 09/30/17 01/11/25 History saw palmetto 450 mg capsule 450 mg PO BID 09/30/17 01/10/25 History simvastatin 10 mg tablet 10 mg PO MOWEFR 09/30/17 01/08/25 History doxazosin 4 mg tablet (Cardura) 4 mg PO QHS 09/15/19 01/10/25 History lisinopril 40 mg tablet 60 mg PO DAILY 11/11/20 01/10/25 History vitamins A,C,S-uhks-rvwdld 2,148 2 tab PO BID 12/26/22 01/10/25 History mcg-113 mg-45 mg-17.4 mg tablet (PreserVision AREDS) chlorthalidone 25 mg tablet 12.5 mg PO DAILY 04/15/23 01/10/25 History Allergy/AdvReac Type Severity Reaction Status Date / Time ciprofloxacin (From Cipro) Allergy Swelling Verified 05/11/25 10:05 Family History Father CVA (cerebral vascular accident) Brother CAD (coronary artery disease) CVA (cerebral vascular accident) Mother CVA (cerebral vascular accident) Surgical History History of cholecystectomy Hx of colonoscopy History of hernia repair Social History Smoking Status: Former smoker alcohol intake: never Audit: Pertinent Findings HISTORY of Pertinent Findings History of Pertinent Findings: Echo Pertinent Findings Echo (EF%) pertinent findings 03/03/2024. EF is 60%. PASP 05/11/25 17:58 is 32 mmHg. No aortic stenosis noted. 1+ mitral valve insufficiency. Consult Pertinent Findings Consult pertinent findings 02/04/2024. Dr. Banerjee. 05/11/25 17:58 1. Hypertension?chronic- controlled. No medication changes at this time. Patient continues to be quite active. Repeat echo to assess ventricular function and reassess mitral valve. (See above). Pertinent Findings EKG Perinent findings: 10/04/2017: Sinus bradycardia within normal limits rate of 50 Recommendation Anesthesia Recommendation Anesthesia recommendation: OPTIMIZED for anesthesia (Can consider doing the procedure under local or nursing sedation.)
[2025-05-17] VITALS (7 sets, daily range): BP systolic 107–151; BP diastolic 53–81; PULSE 53–61; RESP 14–18; TEMP 36.3–36.6; O2SAT 94–97; BMI 31.4
[2025-05-17] MEDS: Lactated Ringers 1,000 ML 15 ML IV (08:33)
--- NOTE | 2025-05-17 08:37 | PCM.PRE.AN2 ---
ASA Classification* ASA Classification ASA Classification: 3 Assessment & Plan Anesthesia* Anesthesia Assessment Anesthesia Assessment: Discussed sedation and/or anesthesia options, risks, benefits, and alternatives with patient/parents/legal guardian/POA. Questions invited. The patient/parents/legal guardian/POA seems to understand and agrees to proceed with anesthesia plan. Reviewed the physical assessment, medical history, allergy history and patient home medications list prior to surgery/procedure/anesthetic and documented any changes. Performed airway and anesthesia risk assessments. Anesthesia Type Anesthesia Type: MAC History Source History Obtained from:: Patient and Chart Anesthesia Focused Assessment* Temperature: 97.4 F Pulse Rate: 59 Blood Pressure: 143/78 Respiratory Rate: 18 Pulse Ox: 97 Oxygen Delivery Method: Room Air Airway Assessment Mouth opens: >3 cm Mallampati Score: I Teeth Condition: Intact Neck Range of motion (ROM): Full ROM Labs Anesthesia Preop lab: CBC WBC 4.7 K/mm3 (4.4-11.0) 01/29/22 09:01/29/22 RBC 4.39 M/mm3 (4.6-6.2) L 01/29/22 09:01/29/22 Hgb 14.1 g/dL (13.0-16.5) 01/29/22 09:01/29/22 Hct 40.2 % (40-54) 01/29/22 09:01/29/22 Plt Count 125 K/mm3 (150-450) L 01/29/22 09:01/29/22 CHEMISTRY Potassium 3.5 mmol/L (3.5-5.1) 01/29/22 09:01/29/22 Sodium 139 mmol/L (136-145) 01/29/22 09:01/29/22 Magnesium 2.0 mg/dL (1.6-2.6) 01/29/22 09:01/29/22 Phosphorus 3.5 mg/dL (2.5-4.9) 01/29/22 09:01/29/22 BUN 45 mg/dL (7-18) H 01/29/22 09:01/29/22 Creatinine 1.61 mg/dL (0.70-1.30) H 01/29/22 09:01/29/22 Glucose 99 mg/dL (74-106) 01/29/22 09:33 01/29/22 TSH 0.74 uIU/mL (0.358-3.74) 12/24/20 07:35 12/24/20 COAG PT 14.4 SECONDS (11.7-14.9) 10/22/19 11:58 10/22/19 Pre-Assessment Diagnosis/Proposed Procedure Planned Operative Procedure(s): RIGHT SIDED LUMBAR MEDIAL BRNACH BLOCK L4, L5, S1 UNDER FLUOROSCOPY Anesthesia History Anesthesia History - manager loss prevention: Anesthesia History - manager loss prevention Hx Hospitalization No 05/11/25 10:07 Any Problems With Anesthesia No 05/11/25 10:07 Cholinesterase deficiency No 05/11/25 10:07 You/Your Family Experience No 05/11/25 10:07 fever (hyperthermia) with Relationship Recent Exposure to Contagious No 05/17/25 08:25 Disease Does patient have nerve No 05/11/25 10:07 stimulator Patient instructed to have device shut off --Does patient have Pacemaker No 05/17/25 08:25 or ICD? When Was Last Pacemaker Check QUESTION #4 FULL TEXT: You/Your Family Experience fever (hyperthermia) with Anesthesia Last Oral Intake Last Oral intake: Last Oral Intake NPO since 20:00 05/17/25 08:25 Meds taken in AM with sips of No 05/17/25 08:25 water? Meds patient instructed to take am of surgery PONV PONV - manager loss prevention: PONV - manager loss prevention Female No 05/11/25 10:07 HX of Motion Sickness No 05/11/25 10:07 HX of N/V After Surgery No 05/11/25 10:07 Non-Smoker Yes 05/11/25 10:07 Duration of Surgery greater No 05/11/25 10:07 than 60 minutes Number of Risk Factors 1 05/11/25 10:07 PONV Score Low Risk 05/11/25 10:07 Height & Weight Height & Weight: Anesthesia: Height & Weight Height 5 ft 6 in 05/17/25 08:25 Weight: 88.3 kg 05/17/25 08:25 Body Mass Index (BMI) 31.4 05/17/25 08:25 Respiratory Assessment Respiratory Assessment - manager loss prevention: Respiratory Tract Infection Hx - manager loss prevention Hx Respiratory Tract Infection No 05/11/25 10:07 STOP Sleep Apnea STOP Sleep Apnea - manager loss prevention: STOP Sleep Apnea - manager loss prevention Hx Hypertension Yes: CONTROLLED ON MED 05/11/25 10:07 Hx Sleep Apnea No 05/11/25 10:07 CPAP BIPAP Do you snore loudly (louder No 05/11/25 10:07 than talking or can be heard Do you often feel tired/ No 05/11/25 10:07 fatigued/ sleepy during daytime? Has anyone observed you stop No 05/11/25 10:07 breathing during sleep? STOP Results Negative 05/11/25 10:07 QUESTION #5 FULL TEXT : Do you snore loudly (louder than talking or can be heard through closed doors)? 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 Specify any problems Hx of Preganancy in last 3 N/A 05/11/25 10:07 Months Nurse Filling Out Transfusion [email or web address] 05/11/25 10:07 & Questions: Date: 05/11/25 05/11/25 10:07 Time: 10:09 05/11/25 10:07 Patient unable to answer at this time (ie. confused, unrespo /Reproduction History /Reproductive History - manager loss prevention: /Reproductive Hx- manager loss prevention Hx Now Gestational Age (in weeks): EDC: Hx Hx Para Hx Section SAB Active Medications Active Medications: Current Medications Generic Name Dose Route Start Last Admin Trade Name Freq PRN Reason Stop Dose Admin Lactated Ringer's 1,000 mls @ 15 mls/hr 05/17/25 08:15 05/17/25 08:33 IV 15 mls/hr .Q48H ERICKA Administration PFSH Medical History Back pain Former smoker History of echocardiogram Macular hole Mitral valve regurgitation History of steroid therapy Arthritis High cholesterol Non-smoker History of edema Cardiology follow-up encounter Wears glasses Cancer Easy bruising Brain aneurysm History of renal disease Asthma Obesity HLD (hyperlipidemia) Essential (primary) hypertension Spinal stenosis of lumbosacral region Degeneration of intervertebral disc of lumbosacral region Radiculopathy of lumbosacral region Home Medications ?Medication ?Instructions ?Recorded ?Last Taken ?Type cholecalciferol (vitamin D3) 50 2,000 unit PO DAILY 09/30/17 05/10/25 History mcg (2,000 unit) capsule fluticasone propionate 220 1 puff inhalation BID 09/30/17 05/16/25 History mcg/actuation HFA aerosol inhaler (Flovent HFA) metoprolol tartrate 100 mg tablet 100 mg PO BID 09/30/17 05/17/25 History saw palmetto 450 mg capsule 450 mg PO BID 09/30/17 05/16/25 History simvastatin 10 mg tablet 10 mg PO MOWEFR 09/30/17 05/14/25 History doxazosin 4 mg tablet (Cardura) 4 mg PO QHS 09/15/19 05/16/25 History lisinopril 40 mg tablet 60 mg PO DAILY 11/11/20 05/16/25 History vitamins A,C,F-xxie-bshima 2,148 2 tab PO BID 12/26/22 05/16/25 History mcg-113 mg-45 mg-17.4 mg tablet (PreserVision AREDS) chlorthalidone 25 mg tablet 12.5 mg PO DAILY 04/15/23 05/16/25 History Allergy/AdvReac Type Severity Reaction Status Date / Time ciprofloxacin (From Cipro) Allergy Swelling Verified 05/17/25 08:23 Family History Father CVA (cerebral vascular accident) Brother CAD (coronary artery disease) CVA (cerebral vascular accident) Mother CVA (cerebral vascular accident) Surgical History History of cholecystectomy Hx of colonoscopy History of hernia repair Social History Smoking Status: Former smoker alcohol intake: never Review of Systems (Anesthesia) ROS Narrative System reviewed and no additional complaints, except as documented.
--- OUTSIDE RECORDS SUMMARY | 2025-05-17 08:53 | XMS RPT_ITS | CCD ---
Author Organization [facility] Care Team Providers Care School Social Worker Name Role Phone Katlin Cortes Unavailable Katlin Cortes Unavailable Dr. Mook Burch Primary Care Provider Dr. Mook Burch Referring Provider [phone] Dr. Joseph Banerjee Attending Provider [phone] MOOK BURCH DO Primary Care Physician [phone] Berto PT, Kendal Unavailable Unavailable Dr. Mook Burch Primary Care Provider Dr. Mook Burch Referring Provider [phone] Don PA, PA Pamela Keller Attending Provider MOOK BURCH DO Primary Care Physician [phone] Mook Burch DO Primary Care Provider [phone] Joseph Banerjee MD Unavailable Mook Burch DO Primary Care Provider [phone] JEFFRY ARREDONDO DO Attending Unavailable MOOK BURCH DO Primary Care Unavailable RAEGAN KELLER MD Attending Unavailable MOOK BURCH DO Primary Care Unavailable RAEGAN KELLER MD Attending Unavailable MOOK BURCH DO Primary Care Unavailable MOOK BURCH DO Attending Unavailable MOOK BURCH DO Primary Care Unavailable RAEGAN KELLER MD Attending Unavailable MOOK BURCH DO Primary Care Unavailable MOOK BURCH DO Primary Care Unavailable MOOK BURCH DO Attending Unavailable RAEGAN KELLER MD Attending Unavailable MOOK BURCH DO Primary Care Unavailable NOELLE KENDALLMICHELE OTEROEDA Attending Unavailab MOOK Kinsey DO Primary Care Unavailable Dr. Mook Burch DO Primary Care Provider [phone] Mj HERNANDEZ, Dr. Carrillo Attending Provider Dr. Gerardo Barker MD Referring Provider [phone] MOOK BURCH Primary Care Unavailable MOOK BURCH Primary Care Unavailable MOOK BURCH Primary Care Unavailable ELIZABETH MARIEE Attending Unavailable Mook Burch Referring Unavailable Mook Burch Primary Care Unavailable Seema Zhou Attending Unavailable Mook Burch Primary Care Unavailable Gerardo Barker Referring Unavailable Gerardo Barker Attending Unavailable Mook Burch Primary Care Unavailable Gerardo Barker Referring Unavailable Gerardo Barker Attending Unavailable Allergies Allergy Classification Reported Allergen(s) Allergy Type Date of Onset Reaction(s) Facility (2 sources) ciprofloxacin Drug Allergy 04-27-2013 [facility] Work Phone: (20 sources) Ciprofloxacin; Translations: [ciprofloxacin] Drug Allergy 10-22-2019 [facility] (1 source) Ciprofloxacin Drug Allergy 05-11-2025 [facility] Repository Medications Current Medications Medication Drug Class(es) Dates Sig (Normalized) Sig (Original) amoxicillin 875 mg / clavulanate 125 mg oral tablet (1 source) Penicillin-class Antibacterial Start: 12-10-2024 End: 12-20-2024 take 1 tablet by mouth every twelve hours amoxicillin-clavula sophy 875 mg-125 mg oral tablet 1 tab(s), Oral, q12h, X 10 day(s), # 20 tab(s), 0 Refill(s), 12/20/24 9:13:00 AM EST, Pharmacy: [facility], UTI (urinary tract infection), 169, cm, 12/10/24 8:37:00 EST, Height, 85.9, kg, 12/10/24 8:37:00 EST, Dosing Weight Start Date: 12/10/24 Stop Date: 12/20/24 Status: Ordered Quantity: 20.0 Unit: tab(s) Repeat number: 1 Indication: Urinary tract infection, site not specified ascorbic acid 113 mg / beta carotene 7160 mg / cuprous oxide 0.4 mg / dl-alpha tocopheryl acetate 100 unt / zinc oxide 17.4 mg oral tablet (4 sources) Vitamin C Start: 12-26-2022 Vitamins A,C,M-Fcxd-Adproa (Preservision Areds) 2,148 mcg-113 mg-45 mg-17.4mg tablet Active 2 {tbl} PO TWICE A DAY December 26, 2022 1:00am administer with AM and PM meals chlorthalidone 25 mg oral tablet (17 sources) Thiazide-like Diuretic Start: 04-15-2023 Chlorthalidone 25 mg Tablet Active 12.5 mg PO DAILY April 15, 2023 12:00am Start: 04-15-2023 take 12.5 mg by mout h once daily Chlorthalidone Active 12.5 MG PO DAILY April 15, 2023 12:00am Start: 12-15-2020 take 0.5 tablet by m outh once daily chlorthalidone 25 mg oral tablet patient takes half tablet daily, 0 Refill(s) Start Date: 12/15/20 Status: Ordered Repeat number: 1 cholecalciferol 0.05 mg oral capsule (16 sources) Vitamin D Start: 09-30-2017 take 1 capsule by mouth once daily Cholecalciferol (Vitamin D3) 2,000 UNIT capsule Active 2000 U PO DAILY September 30, 2017 1:00am Start: 04-27-2013 take 1 tablet by carmelo th once daily VITAMIN D 2000 UNIT TABS One tablet by mouth daily CHOLECALCIFEROL [id number] Joseph Banerjee MD Comment on above: Take 2,000 Units by mouth once daily. doxazosin 4 mg oral tablet (20 sources) alpha-Adrenergic Charo Start: 09-15-2019 Cardura 4 mg oral tablet Dose : 4 mg = 1 tab(s), Oral, qDay, # 90 tab(s), 3 Refill(s), Pharmacy: [facility], Hypertension, 169, cm, 07/21/24 10:28:00 EDT, Height, kg, 07/21/24 10:28:00 EDT, Dosing Weight Start Date: 07/21/24 Status: Ordered Quantity: 90.0 Unit: tab(s) Repeat number: 4 Indication: Essential (primary) hypertension Start: 02-09-2014 End: 03-06-2017 take 1 tablet by mouth once daily DOXAZOSIN MESYLATE 8 MG TABS One tablet by mouth daily DOXAZOSIN MESYLATE [id number] Pamela Ochoa PA-C Comment on above: Take 4 mg by mouth d aily at bedtime. 120 actuat fluticasone propionate 0.22 mg/actuat metered dose inhaler (20 sources) Corticosteroid Start: 024 take 2 puff(s) by inhalation twice daily as needed Flovent HFA 220 mcg/inh inhalation aerosol 2 puff(s), Inhalation, BID, as needed, 90 day supply, # 3 EA, 1 Refill(s), Pharmacy: [facility], Asthma, mild intermittent, 169, cm, 07/21/24 10:28:00 EDT, Height, kg, 07/21/24 10:28:00 EDT, Dosing Weight Start Date: 09/09/24 Status: Ordered Quantity: 3.0 Unit: EA Repeat number: 2 Indication: Mild intermittent asthma, uncomplicated Start: 08-30-2023 take 2 puff(s) by in halation twice daily as needed Flovent HFA 220 mcg/inh inhalation aerosol 2 puff(s), Inhalation, BID, as needed, 90 day supply, # 3 EA, 3 Refill(s), Pharmacy: [facility], Asthma, mild intermittent, 169, cm, 08/30/23 11:16:00 EDT, Height, kg, 08/30/23 11:10:00 EDT, Dosing Weight Start Date: 08/30/23 Status: Ordered Start: 07-06-2022 take 1 puff(s) by in halation twice daily as needed Flovent HFA 220 mcg/inh inhalation aerosol 1 puff(s), Inhalation, BID, as needed, 90 day supply, # 3 EA, 3 Refill(s), Pharmacy: [facility], Asthma, mild intermittent, 169, cm, 07/06/22 11:10:00 EDT, Height, kg, 07/06/22 11:10:00 EDT, Dosing Weight Start Date: 07/06/22 Status: Ordered Start: 09-30-2017 Fluticasone Pr opionate (Flovent Hfa) 1 INHALER inhaler Active 1 NMA INHALATION TWICE A DAY September 30, 2017 1:00am Start: 09-30-2017 take 1 puff(s) by in halation twice daily Fluticasone Propionate (Flovent Hfa) 1 INHALER inhaler Active 1 PUFF INHALATION TWICE A DAY September 30, 2017 1:00am Start: 09-30-2017 take 1 puff(s) by in halation twice daily Fluticasone Propionate (Flovent Hfa) 1 INHALER inhaler Active 1 PUFF INHALATION TWICE A DAY September 30, 2017 12:00am Start: 04-27-2013 take 1 puff(s) by in halation twice daily fluticasone (FLOVENT) 220 mcg/actuation inhaler 1 Puff twice daily. 04/27/2013 Active Start: 04-27-2013 FLOVENT HFA 22 0 MCG/ACT AERO One inhalation twice daily FLUTICASONE PROPIONATE HFA [id number] Francesca Montesinos RN Comment on above: 1 Puff twice daily. furosemide 40 mg oral tablet (3 sources) Loop Diuretic Start: 09-11-2018 Furosemide (Lasix) 40 mg tablet Active 40 MG PO .prn September 11, 2018 11:55am End: 02-19-2024 take 1 tablet by mouth once furosemide (LASIX) 20 mg t ablet Take 20 mg by mouth. Every Saturday , Saturday, and 0 02/19/2024 Discontinued Comment on above: Take 20 mg by mouth. Every Saturday , Saturday, and lisinopril 40 mg oral tablet (20 sources) Angiotensin Converting Enzyme Inhibitor Start: 11-11-2020 Lisinopril 40 mg tablet Active 60 mg PO DAILY November 11, 2020 10:29am Start: 11-11-2020 take 60 mg by mouth once daily Lisinopril Active 60 MG PO DAILY November 11, 2020 10:29am Start: 12-20-2017 take 1.5 tablets by mouth once daily in the morning lisinopril 40 mg oral tablet 1.5 tab, Oral, qAM, 60mg Start Date: 12/20/17 Status: Ordered Repeat number: 1 Start: 09-30-2017 End: 11-11-2020 take 1 tablet by mouth once daily Lisinopril 40 mg tablet Discontinued 40 mg PO DAILY September 15, 2019 11:29am November 11, 2020 10:31am Start: 09-07-2016 take 1 tablet by carmelo th once daily LISINOPRIL 20 MG TABS One tablet by mouth daily LISINOPRIL [id number] Joseph Banerjee MD Start: 09-07-2016 take 1 tablet by carmelo th once daily LISINOPRIL 40 MG TABS One tablet by mouth daily LISINOPRIL [id number] SRINIVAS [facility] Comment on above: Take 60 mg by mouth once daily. metoprolol tartrate 100 mg oral tablet (20 sources) beta-Adrenergic Charo Start: 04-27-2013 take 1 tablet by mouth twice daily Metoprolol Tartrate 100 MG tablet Active 100 mg PO TWICE A DAY September 30, 2017 1:00am Start: 04-27-2013 take 1 tablet by carmelo th twice daily LOPRESSOR 50 MG TABS One tablet by mouth twice daily METOPROLOL TARTRATE [id number] Francesca Montesinos RN Comment on above: Take 100 mg by mouth twice daily. omega 8-yel-ppw-fish oil (FISH OIL) 300-1,000 mg cpDR (7 sources) Start: 04-27-2013 omega 4-hlb-zrn-fish oil (FISH OIL) 300-1,000 mg cpDR 1 capsule once daily. 04/27/2013 Active Start: 04-27-2013 omega 3-dha-ep a-fish oil (FISH OIL) 300-1,000 mg cpDR 1 capsule once daily. 0 04/27/2013 Active Comment on above: 1 capsule once daily . PreserVision AREDS 2 (1 source) Start: 9 take 1 capsule by mouth twice daily PreserVision AREDS 2 Dose = 1 cap(s), Oral, BID, 0 Refill(s) Start Date: 01/07/19 Status: Ordered PreserVision AREDS 2 oral capsule (4 sources) Start: 3 PreserVision AREDS 2 oral capsule 0 Refill(s) Start Date: 03/14/23 Status: Ordered Repeat number: 1 Start: 03-14-2023 PreserVision A REDS 2 oral capsule 0 Refill(s) Start Date: 03/14/23 Status: Ordered Saw Linden (9 sources) Start: 09-30-2017 take 450 mg by mouth twice daily Saw Linden Active 450 MG PO TWICE A DAY September 30, 2017 9:56am Start: 09-30-2017 take 1 capsule by mo uth twice daily Saw Linden 450 MG capsule Active 450 mg PO TWICE A DAY September 30, 2017 1:00am Start: 09-30-2017 take 450 mg by mouth twice eula ly Saw Linden Active 450 MG PO TWICE A DAY September 30, 2017 1:00am Start: 09-30-2017 take 450 mg by mouth twice eula ly Saw Linden Active 450 MG PO TWICE A DAY September 30, 2017 12:00am Start: 04-27-2013 take 1 capsule by mo uth once daily SAW PALMETTO 1000 MG CAPS One capsule by mouth daily SAW PALMETTO (SERENOA REPENS) [id number] Francesca Montesinos RN SAW PALMETTO ORAL (7 sources) Start: 04-27-2013 take 2 capsules by mouth once daily SAW PALMETTO ORAL 2 capsules once daily. 04/27/2013 Active Start: 04-27-2013 take 2 capsules by m [facility] once daily SAW PALMETTO ORAL 2 capsules once daily. 0 04/27/2013 Active Comment on above: 2 capsules once conchita y. saw palmetto oral capsule (7 sources) Start: 01-07-2019 take 1 capsule by mouth twice daily saw palmetto oral capsule Dose = 1 cap(s), Oral, BID, 0 Refill(s) Start Date: 01/07/19 Status: Ordered Repeat number: 1 Start: 01-07-2019 take 1 capsule by mo uth twice daily saw palmetto oral capsule Dose = 1 cap(s), Oral, BID, 0 Refill(s) Start Date: 01/07/19 Status: Ordered simvastatin 10 mg oral tablet (20 sources) HMG-CoA Reductase Inhibitor Start: 09-30-2017 simvastatin 10 mg or al tablet See Instructions, three times a week, # 45 tab(s), 5 Refill(s), Pharmacy: [facility], Hyperlipidemia, 169, cm, 07/21/24 10:28:00 EDT, Height, kg, 07/21/24 10:28:00 EDT, Dosing Weight Start Date: 07/21/24 Status: Ordered Quantity: 45.0 Unit: tab(s) Repeat number: 6 Indication: Hyperlipidemia, unspecified Start: 08-12-2014 SIMVASTATIN 20 MG TABS one tablet three times weekly every evening SIMVASTATIN [id number] Joseph Banerjee MD Start: 08-12-2014 take 1 tablet by carmelo th three times weekly SIMVASTATIN 10 MG TABS one tablet by mouth three times a week SIMVASTATIN [id number] Isabella Hayes RN take 1 tablet by carmelo th once daily at bedtime simvastatin (ZOCOR) 10 mg tablet Take 10 mg by mouth daily at bedtime. Active Vit C,Y-Fc-Cgbqj-Lutein-Zeax an (Preservision Areds-2) 250-90-40-1 mg capsule (1 source) Start: 10-31-2021 Vit C,V-Im-Xsuog-Lutein-Zeaxan (Preservision Areds-2) 250-90-40-1 mg capsule Active 1 TABLET PO TWICE A DAY October 31, 2021 11:51am vit C/E/Zn/coppr/lutein/zeax an (PRESERVISION AREDS-2 ORAL) (7 sources) take 1 tablet by mouth twice daily vit C/E/Zn/coppr/lutein/zeaxan (PRESERVISION AREDS-2 ORAL) Take 1 tablet by mouth twice daily. Active take 1 tablet by carmelo th twice daily vit C/E/Zn/coppr/lutein/zeaxan (PRESERVI ARMEN AREDS-2 ORAL) Take 1 tablet by mouth twice daily. 0 Active Comment on above: Take 1 tablet by carmelo th twice daily. Vitamin D3 (7 sources) Start: 01-05-2022 Vitamin D3 Dos e : 2,000 unit(s) = 1 tab(s), Oral, Daily, # 60 tab(s), 0 Refill(s) Start Date: 01/05/22 Status: Ordered Quantity: 60.0 Unit: tab(s) Repeat number: 1 Start: 01-05-2022 Vitamin D3 Dos e : 2,000 unit(s) = 1 tab(s), Oral, Daily, # 60 tab(s), 0 Refill(s) Start Date: 01/05/22 Status: Ordered Completed/Discontinued Medications Medication Drug Class(es) Dates Sig (Normalized) Sig (Original) 24 hr dilTIAZem hydrochloride 120 mg extended release oral capsule (11 sources) Calcium Channel Charo Start: 09-30-2017 End: 09-15-2019 take 1 capsule by mouth every twenty-four hours at bedtime Diltiazem Hcl 120 MG capsule,extended release 24hr Discontinued 120 mg PO AT BEDTIME September 30, 2017 1:00am September 15, 2019 11:30am Start: 03-06-2017 take 1 tablet by carmelo once daily DILTIAZEM HCL ER 240 MG [id number] One tablet by mouth daily DILTIAZEM HCL [id number] Pamela Ochoa PA-C Start: 03-06-2017 CARTIA XT 120 MG [id number] (Diltia XT) One tablet by mouth daily DILTIAZEM HCL COATED BEADS [id number] Joseph Banerjee MD docusate sodium 100 mg oral capsule (4 sources) Start: 08-13-2013 End: 02-09-2014 take 1 tablet by mouth once daily COLACE 100 MG CAPS One tablet by mouth daily DOCUSATE SODIUM [id number] Pamela Ochoa PA-C fish oil (2 sources) Start: 04-27-2013 take 1 capsule by mouth once daily FISH OIL CAPS One capsule by mouth daily OMEGA-3 FATTY ACIDS CAPS [id number] Francesac Montesinos RN gabapentin 100 mg oral capsule (7 sources) Anti-epileptic Agent Start: 09-30-2017 End: 09-11-2018 take 1 capsule by mouth twice daily Gabapentin 100 MG capsule Discontinued 100 mg PO TWICE A DAY September 30, 2017 1:00am September 11, 2018 11:54am hydroCHLOROthiazide 12.5 mg / losartan potassium 50 mg oral tablet (4 sources) Thiazide Diuretic, Angiotensin 2 Receptor Charo Start: 04-27-2013 End: 08-13-2013 take 1 tablet by mouth once daily HYZAAR 50-12.5 MG TABS One tablet by mouth daily LOSARTAN POTASSIUM-HCTZ [id number] Francesca Montesinos RN MULTIPLE VITAMIN (4 sources) Start: 04-27-2013 End: 08-12-2014 take 1 tablet by mouth once daily MULTIVITAMINS TABS One tablet by mouth daily MULTIPLE VITAMIN [id number] Joseph Banerjee MD Start: 04-27-2013 take 1 tablet by carmelo th once daily MULTIVITAMINS TABS One tablet by mouth daily MULTIPLE VITAMIN [id number] Francesca Montesinos RN omeprazole 20 mg delayed release oral capsule (4 sources) Proton Pump Inhibitor Start: 04-27-2013 End: 08-26-2015 take 1 tablet by mouth once daily OMEPRAZOLE 20 MG CPDR One tablet by mouth daily OMEPRAZOLE [id number] Joseph Banerjee MD prazosin 5 mg oral capsule (4 sources) alpha-Adrenergic Charo Start: 04-27-2013 End: 05-06-2013 take 1 capsule by mouth twice daily MINIPRESS 5 MG CAPS One capsule by mouth twice daily PRAZOSIN HCL [id number] Joseph Banerjee MD spironolactone 25 mg oral tablet (8 sources) Aldosterone Antagonist Start: 04-27-2013 End: 08-13-2013 take 1 tablet by mouth once daily SPIRONOLACTONE 25 MG TABS One tablet by mouth daily SPIRONOLACTONE [id number] Joseph Banerjee MD valACYclovir 1000 mg oral tablet (7 sources) Herpesvirus Nucleoside Analog DNA Polymerase Inhibitor, Herpes Simplex Virus Nucleoside Analog DNA Polymerase Inhibitor, Herpes Zoster Virus Nucleoside Analog DNA Polymerase Inhibitor Start: 04-27-2019 End: 11-11-2020 take 1 tablet by mouth three times daily Valacyclovir 1,000 MG tablet Discontinued 1000 mg PO THREE TIMES A DAY April 27, 2019 12:00am November 11, 2020 10:31am vitamin d 1000 unt oral tablet (2 sources) Start: 04-27-2013 take 1 tablet by mouth once daily VITAMIN D 1000 UNIT TABS One tablet by mouth daily CHOLECALCIFEROL [id number] Francesca Montesinos RN Problems Active Problems Problem Classification Problem Date Documented Date Episodic/Chronic Acute and unspecified renal failure (9 sources) Renal failure syndrome; Translations: [Chronic kidney disease, unspecified] Onset: 4 02-09-2014 Chronic Comment on above: stage lll Asthma (9 sources) Asthma; Translations: [Mild intermittent asthma] Onset: 4 02-09-2014 Chronic Chronic kidney disease (5 sources) Chronic kidney disease stage 3A ; Translations: [Chronic kidney disease, stage 3a] Chronic Chronic obstructive pulmonary disease and bronchiectasis (4 sources) Bronchitis 10-31-2023 Episodic Deficiency and other anemia (1 source) Anemia of chronic renal failure; Translations: [Anemia in chronic kidney disease] Chronic Deficiency and other anemia (4 sources) Pancytopenia 01-22-2024 Chronic Disorders of lipid metabolism (20 sources) Hyperlipidemia; Translations: [Hyperlipidemia, unspecified] Onset: 5 08-26-2015 Chronic Comment on above: controlled Essential hypertension (19 sources) Hypertensive disorder; Translations: [Essential hypertension] Onset: 3 04-27-2013 Chronic Comment on above: controlled with meds Genitourinary symptoms and ill-defined conditions (7 sources) Proteinuria; Translations: [Proteinuria, unspecified] Onset: 5 Episodic Heart valve disorders (8 sources) Nonrheumatic aortic (valve) insufficiency; Translations: [Aortic valve regurgitation] Onset: 3 09-07-2016 Chronic Hypertension with complications and secondary hypertension (1 source) Chronic kidney disease due to hypertension; Translations: [Hypertensive chronic kidney disease with stage 1 through stage 4 chronic kidney disease, or unspecified chronic kidney disease] Chronic Malaise and fatigue (9 sources) Fatigue; Translations: [Other fatigue] Onset: 3 05-06-2013 Episodic Neoplasms of unspecified nature or uncertain behavior (5 sources) Monoclonal gammopathy (clinical); Translations: [Monoclonal gammopathy] 08-30-2023 Chronic Non-Hodgkin`s lymphoma (12 sources) Malignant lymphoma - lymphoplasmacytic; 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, unspecified site] Onset: 0 11-27-2019 Chronic Nutritional deficiencies (7 sources) Vitamin D deficiency; Translations: [Vitamin D deficiency, unspecified] 01-17-2023 Chronic Other bone disease and musculoskeletal deformities (4 sources) Somatic dysfunction of hip region 04-01-2023 Episodic Other circulatory disease (4 sources) Abnormal chest sounds; Translations: [Other specified symptoms and signs involving the circulatory and respiratory systems] 12-26-2022 Episodic Other circulatory disease (2 sources) Other specified symptoms and signs involving the circulatory and respiratory systems; Translations: [Abnormal chest sounds] 12-26-2022 Episodic Other connective tissue disease (7 sources) Triggering of digit 12-15-2020 Episodic Other connective tissue disease (1 source) Hand pain 07-21-2024 Episodic Other diseases of kidney and ureters (1 source) Hyperparathyroidism due to renal insufficiency; Translations: [Secondary hyperparathyroidism of renal origin] Chronic Other ear and sense organ disorders (7 sources) Impacted cerumen 01-22-2024 Episodic Other nervous system disorders (1 source) Neuropathy; Translations: [Polyneuropathy, unspecified] 02-23-2024 Chronic Other nervous system disorders (4 sources) Numbness of lower limb 04-01-2023 Episodic Other non-traumatic joint disorders (7 sources) Shoulder pain 07-06-2022 Episodic Other nutritional; endocrine; and metabolic disorders (1 source) Waldenstrom macroglobulinemia; Translations: [Waldenstrom macroglobulinemia] 03-03-2025 Chronic Other nutritional; endocrine; and metabolic disorders (7 sources) Overweight in adulthood with body mass index of 25 or more but less than 30 07-06-2022 Episodic Other screening for suspected conditions (not mental disorders or infectious disease) (5 sources) Diabetic monitoring status; Translations: [Encounter for screening for diabetes mellitus] Episodic Screening and history of mental health and substance abuse codes (7 sources) Ex-tobacco user 07-06-2022 Episodic Spondylosis; intervertebral disc disorders; other back problems (8 sources) Lumbago with sciatica; Translations: [Spasm of muscle of lower back] 03-14-2023 Episodic Unclassified (2 sources) Body mass index (BMI) 30.0-30.9, adult; Translations: [Body mass index (BMI) 30.0-30.9, adult] Onset: 4 08-12-2014 Chronic Unclassified (20 sources) Patient encounter status 01-05-2022 Unclassified (4 sources) Influenza vaccination status 01-22-2024 Unclassified (1 source) Low back pain, unspecified; Translations: [Low back pain, unspecified] Onset: Past or Other Problems Problem Classification Problem Date Documented Da te Episodic/Chronic Congestive heart failure; nonhypertensive (2 sources) Diastolic dysfunction; Translations: [Other ill-defined heart diseases] Onset: 04-27-2013 04-27-2013 Episodic Unclassified (4 sources) Family history of stroke; Translations: [Edema] Onset: 04-27-2013 08-12-2014 Episodic Results Test Name Value Interpretation Reference Range Facility MR/PAT.Yohana 05-12-2025 MR[facility]PAT[facility] Medical Records Department [address] [place] [address] PAT - Anesthesia 05/12/25 1639 MR#: [id number] Acct: [id number] Name: CORAL BUSH Rep #: [id number] : 1940 84 From: Camron Gonzalez MD PCP: Dr. Mook Burch, DO Status:PRE [facility] Y Race: C Location: [facility] Pre-Assessment Diagnosis/Proposed Procedure Planned Operative Procedure(s): RIGHT SIDED LUMBAR MEDIAL BRNACH BLOCK L4, L5, S1 UNDER FLUOROSCOPY Anesthesia History Anesthesia History - shoemaker custom: Anesthesia History - shoemaker custom Hx Hospitalization No 05/11/25 10:07 Any Problems With Anesthesia No 05/11/25 10:07 Cholinesterase deficiency No 05/11/25 10:07 You/Your Family Experience No 05/11/25 10:07 fever (hyperthermia) with Relationship Recent Exposure to Contagious No 01/11/25 07:54 Disease Does patient have nerve No 05/11/25 10:07 stimulator Patient instructed to have device shut off --Does patient have Pacemaker or ICD? When Was Last Pacemaker Check QUESTION #4 FULL TEXT: You/Your Family Experience fever (hyperthermia) with Anesthesia Last Oral Intake Last Oral intake: Last Oral Intake NPO since Meds taken in AM with sips of water? Meds patient instructed to take am of surgery PONV PONV - shoemaker custom: PONV - shoemaker custom Female No 05/11/25 10:07 HX of Motion Sickness No 05/11/25 10:07 HX of N/V After Surgery No 05/11/25 10:07 Non-Smoker Yes 05/11/25 10:07 Duration of Surgery greater No 05/11/25 10:07 than 60 minutes Number of Risk Factors 1 05/11/25 10:07 PONV Score Low Risk 05/11/25 10:07 Height Weight Height Weight: Anesthesia: Height Weight Height 5 ft 6 in 01/16/25 09:43 Respiratory Assessment Respiratory Assessment - shoemaker custom: Respiratory Tract Infection Hx - shoemaker custom Hx Respiratory Tract Infection No 05/11/25 10:07 STOP Sleep Apnea STOP Sleep Apnea - shoemaker custom: STOP Sleep Apnea - shoemaker custom Hx Hypertension Yes: CONTROLLED ON MED 05/11/25 10:07 Hx Sleep Apnea No 05/11/25 10:07 CPAP BIPAP Do you snore loudly (louder No 05/11/25 10:07 than talking or can be heard Do you often feel tired/ No 05/11/25 10:07 fatigued/ sleepy during daytime? Has anyone observed you stop No 05/11/25 10:07 breathing during sleep? STOP Results Negative 05/11/25 10:07 QUESTION #5 FULL TEXT : Do you snore loudly (louder than talking or can be heard through closed doors)? 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 Specify any problems Hx of Preganancy in last 3 N/A 05/11/25 10:07 Months Nurse Filling Out Transfusion [email or web address] 05/11/25 10:07 Questions: Date: 05/11/25 05/11/25 10:07 Time: 10:09 05/11/25 10:07 Patient unable to answer at this time (ie. confused, unrespo /Reproduction History /Reproductive History - shoemaker custom: /Reproductive Hx- shoemaker custom Hx Now Gestational Age (in weeks): EDC: Hx Hx Para Hx Section SAB PFSH Medical History Back pain Former smoker History of echocardiogram Macular hole Mitral valve regurgitation History of steroid therapy Arthritis High cholesterol Non-smoker History of edema Cardiology follow-up encounter Wears glasses Cancer Easy bruising Brain aneurysm History of renal disease Asthma Obesity HLD (hyperlipidemia) Essential (primary) hypertension Spinal stenosis of lumbosacral region Degeneration of intervertebral disc of lumbosacral region Radiculopathy of lumbosacral region Home Medications ???Medication ???Instructions ???Recorded ???Last Taken ???Type cholecalciferol (vitamin D3) 50 2,000 unit PO DAILY 09/30/1701/10 History mcg (2,000 unit) capsule fluticasone propionate 220 1 puff inhalation BID 09/30/17 History mcg/actuation H (more content not included)... Normal [facility] MR/PAT.ANEon 05-11-2025 MR/PAT.[facility] Medical Records Department [address] [place] [address] PAT - Anesthesia 05/11/25 1751 MR#: [id number] Acct: [id number] Name: CORAL BUSH Rep #: [id number] : 1940 84 From: Kenton Mireles MD PCP: Dr. Mook Burch, DO Status:PRE [facility] Y Race: C Location: [facility] Pre-Assessment Diagnosis/Proposed Procedure Planned Operative Procedure(s): RIGHT SIDED LUMBAR MEDIAL BRNACH BLOCK L4, L5, S1 UNDER FLUOROSCOPY Anesthesia History Anesthesia History - shoemaker custom: Anesthesia History - shoemaker custom Hx Hospitalization No 05/11/25 10:07 Any Problems With Anesthesia No 05/11/25 10:07 Cholinesterase deficiency No 05/11/25 10:07 You/Your Family Experience No 05/11/25 10:07 fever (hyperthermia) with Relationship Recent Exposure to Contagious No 01/11/25 07:54 Disease Does patient have nerve No 05/11/25 10:07 stimulator Patient instructed to have device shut off --Does patient have Pacemaker or ICD? When Was Last Pacemaker Check QUESTION #4 FULL TEXT: You/Your Family Experience fever (hyperthermia) with Anesthesia Last Oral Intake Last Oral intake: Last Oral Intake NPO since Meds taken in AM with sips of water? Meds patient instructed to take am of surgery PONV PONV - shoemaker custom: PONV - shoemaker custom Female No 05/11/25 10:07 HX of Motion Sickness No 05/11/25 10:07 HX of N/V After Surgery No 05/11/25 10:07 Non-Smoker Yes 05/11/25 10:07 Duration of Surgery greater No 05/11/25 10:07 than 60 minutes Number of Risk Factors 1 05/11/25 10:07 PONV Score Low Risk 05/11/25 10:07 Height Weight Height Weight: Anesthesia: Height Weight Height 5 ft 6 in 01/16/25 09:43 Respiratory Assessment Respiratory Assessment - shoemaker custom: Respiratory Tract Infection Hx - shoemaker custom Hx Respiratory Tract Infection No 05/11/25 10:07 STOP Sleep Apnea STOP Sleep Apnea - shoemaker custom: STOP Sleep Apnea - shoemaker custom Hx Hypertension Yes: CONTROLLED ON MED 05/11/25 10:07 Hx Sleep Apnea No 05/11/25 10:07 CPAP BIPAP Do you snore loudly (louder No 05/11/25 10:07 than talking or can be heard Do you often feel tired/ No 05/11/25 10:07 fatigued/ sleepy during daytime? Has anyone observed you stop No 05/11/25 10:07 breathing during sleep? STOP Results Negative 05/11/25 10:07 QUESTION #5 FULL TEXT : Do you snore loudly (louder than talking or can be heard through closed doors)? 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 Specify any problems Hx of Preganancy in last 3 N/A 05/11/25 10:07 Months Nurse Filling Out Transfusion [email or web address] 05/11/25 10:07 Questions: Date: 05/11/25 05/11/25 10:07 Time: 10:05/11/25 10:07 Patient unable to answer at this time (ie. confused, unrespo /Reproduction History /Reproductive History - shoemaker custom: /Reproductive Hx- shoemaker custom Hx Now Gestational Age (in weeks): EDC: Hx Hx Para Hx Section SAB PFSH Medical History (Updated 05/11/25 @ 10:15 by Suraj Hogan) Back pain Former smoker History of echocardiogram Macular hole Mitral valve regurgitation History of steroid therapy Arthritis High cholesterol Non-smoker History of edema Cardiology follow-up encounter Wears glasses Cancer Easy bruising Brain aneurysm History of renal disease Asthma Obesity HLD (hyperlipidemia) Essential (primary) hypertension Spinal stenosis of lumbosacral region Degeneration of intervertebral disc of lumbosacral region Radiculopathy of lumbosacral region Home Medications ???Medication ???Instructions ???Recorded ???Last Taken ???Type cholecalciferol (vitamin D3) 50 2,000 unit PO DAILY 09/30/1701/10 History mcg (2,000 unit) capsule fluticasone propionate 220 1 puff inhalation BID 09/30/17 History mcg/actuation HFA a (more content not included)... Normal [facility] CNOVSPon 03-03-2025 CNOVSP Visit (SP) Office (HEMAWS) CORAL BUSH ([id number]) 1940 Arianna Date Time Provider Department 03/03/25 10:00 AM ELIZABETH MARIEE During your visit today, we recorded the following information about you: Temperature Pulse Blood pressure Weight 97 degrees 64/minute 120/71 86.9 kg Elizabeth Mariee 03/03/2025 12:33 PM Signed Coral Bush 1940 03/03/2025 Diagnoses: 1) Waldenstrom's macroglobulinemia. 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 HPI: The patient is an 83-year-old male who has a past medical history significant for brain aneurysm (cauterized at [place] about 17 years ago), hypercholesterolemia, HTN, vitamin D deficiency, GERD, BPH and chronic kidney disease. He has a history of stage III chronic kidney disease associated with proteinuria. In the fall of 2017 he was found to have 1.2 g per day proteinuria. He has a history of lower extremity edema for which he was on Lasix periodically. He also reportedly had an M spike quantitated at 0.38 g/dL in May 2019. Serum creatinine had been stable at about 1. 31.4 mg/dL since 2015 with a transient increase of uptake 1.61 g/dL in June 2017 and the most recent value of 1.57 mg/dL on 06/09/2019. Patient had serum protein electrophoresis as well as immunofixation on 09/30/2019. There was a decrease in total IgG at 558 mg/dL (normal range 700-1600 mg/dL) with an increase in IgM quantitated at 920 mg/dL (normal range 15-143 mg/dL). Serum IgA level was normal. M spike was quantitated at 0.4 g/dL. Immunofixation demonstrated IgM kappa monoclonal protein. Spot urine sample was negative for monoclonal protein by electrophoresis but the immunofixation result was noted to be unclear at this time per the reference laboratory. Bone marrow biopsy performed on 11/11/2019 revealed a mildly hypercellular bone marrow. Mild increased stainable iron without ring sideroblasts was observed. Benign lymphoid aggregate, microscopic. There was no evidence of plasma cell dyscrasia. There was by flow cytometry an abnormal monoclonal B-cell population comprising 2% of the total cells with slight Restriction. MYD88/L265P mutation was positive. Cytogenetics 46 XY normal male karyotype. Ultrasound the liver and the spleen (done due to his elevated creatinine precluding safe use of IV contrast for CT) demonstrated a liver cyst. There was increased echogenicity of the kidneys bilaterally raising concern for medical renal disease. Multiple bilateral renal cysts were observed the common bile duct and pancreas were not well visualized. Spleen size was normal. Liver texture was homogeneous and echogenicity was normal with a smooth surface contour. Serum cryoglobulins negative. 24-hour urine collection revealed no evidence of M spike. The total 24-hour protein was 973 mg in 24 hours. Immunofixation of the 24-hour urine collection was noted to be presence of monoclonal protein is unclear at this time suggest repeat in 3-6 months if clinically indicated. Presents for ongoing oncologic management. Interim history: I feel pretty good Getting injections for herniated disc yearly - has appt coming up. This has relieved pain in the past. Denies new issues. No new lumps or bumps, aches or pains. No SOB, CP, Palpitations. No changes in bowel or bladder habits. No unintentional weight loss. Denies fevers, chills or NS. PMH, medications and allergies personally reviewed by me today. Any changes documented in appropriate section. ROS: All systems reviewed on 03/03/2025 with pertinent positives and negatives as outlined in the interval history. PHYSICAL EXAM: Vitals: Blood pressure 120/71, pulse 64, temperature 36.1 ?C (97 ?F), temperature source Temporal, weight 86.9 kg (191 lb 8 oz), SpO2 96%. Well-appearing and in no acute distress. EYES: Sclerae are anicteric bilaterally. LYMPHATIC: There is no palpable cervical, supraclavicular or axillary adenopathy. RESPIRATORY: Inspiratory breath sounds are of normal intensity. No rales, wheezes or rhonchi. CARDIOVASCULAR: Rhythm is regular. ABDOMEN: The abdomen is nondistended. No organomegaly. I have performed the physical exam today (03/03/2025) and have edited the note to correlate with current findings. 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 Clemente for chronic kidney disease. In December of 2018 the serum creatinine was 1.37 mg/dL. He was found to have an IgM kappa monoclonal protein quantitated at 0.4 g/dL in the serum on protein electrophoresis 10/01/2019. -Workup demonstrated Waldenstrom's macroglobulinemia with very low level lymphoplasmacytic lymphoma cl (more content not included)... Normal [facility] B2 Microglob SerPl-mCncon Ojdb-3-Zenfbsueqcdis [Mass/Vol] 5.0 ug/mL High <3.1 [facility] Comment on above: Order Comment: Azeb kelley Type: BLOOD SPECIMEN Ordering Facility: [facility] Address: [address] [place] [address] Result Comment: Beta -2 Microglobulin test is performed using the [employer] immunoturbidimetric method. Results obtained with different methods or kits cannot be used interchangeably. Performed By: #### 1 952-1 #### [facility] CLIA [id number] [address] [place] [address] [place] CBC W Auto Differential pane l (Bld)on 02-24-2025 Basophils (Bld) [#/Vol] 10*3/uL Normal <0.11 [facility] Comment on above: Order Comment: Azeb kelley Type: BLOOD SPECIMEN Ordering Facility: [facility] Address: [address] [place] [address] Performed By: #### 5 7021-8 #### [facility] CLIA [id number] [address] [place] [address] [place] Basophils/100 WBC (Bld) 0.4 % Normal [facility] Comment on above: Order Comment: Azeb kelley Type: BLOOD SPECIMEN Ordering Facility: [facility] Address: [address] [place] [address] Performed By: #### 5 7021-8 #### [facility] CLIA [id number] [address] [place] [address] [place] Differential cell count method Nom (Bld) Auto Normal [facility] Comment on above: Order Comment: Speci men Type: BLOOD SPECIMEN Ordering Facility: [facility] Address: [address] [place] [address] Performed By: #### 5 7021-8 #### [facility] CLIA [id number] [address] [place] [address] [place] Eosinophils (Bld) [#/Vol] 0.18 10*3/uL Normal <0.46 [facility] Comment on above: Order Comment: Speci men Type: BLOOD SPECIMEN Ordering Facility: [facility] Address: [address] [place] [address] Performed By: #### 5 7021-8 #### [facility] CLIA [id number] [address] [place] [address] [place] Eosinophils/100 WBC (Bld) 3.7 % Normal [facility] Comment on above: Order Comment: Speci men Type: BLOOD SPECIMEN Ordering Facility: [facility] Address: [address] [place] [address] Performed By: #### 5 7021-8 #### [facility] CLIA [id number] [address] [place] [address] [place] Erythrocyte distribution width (RBC) [Ratio] 13.2 % Normal 11.5-15.0 [facility] Comment on above: Order Comment: Speci men Type: BLOOD SPECIMEN Ordering Facility: [facility] Address: [address] [place] [address] Performed By: #### 5 7021-8 #### [facility] CLIA [id number] [address] [place] [address] [place] Hematocrit (Bld) [Volume fraction] 39.5 % Normal 39.0-51.0 [facility] Comment on above: Order Comment: Speci men Type: BLOOD SPECIMEN Ordering Facility: [facility] Address: [address] [place] [address] Performed By: #### 5 7021-8 #### [facility] CLIA [id number] [address] [place] [address] [place] Hemoglobin (Bld) [Mass/Vol] 13.5 g/dL Normal 13.0-17.0 [facility] Comment on above: Order Comment: Speci men Type: BLOOD SPECIMEN Ordering Facility: [facility] Address: [address] [place], [place] [address] Performed By: #### 5 7021-8 #### [facility] CLIA [id number] [address] [place] [address] [place] Immature granulocytes (Bld) [#/Vol] 0.08 10*3/uL Normal <0.10 [facility] Comment on above: Order Comment: Speci men Type: BLOOD SPECIMEN Ordering Facility: [facility] Address: [address] [place], [place] [address] Performed By: #### 5 7021-8 #### [facility] CLIA [id number] [address] [place] [address] [place] Immature granulocytes/100 WBC (Bld) 1.7 % Normal [facility] Comment on above: Order Comment: Speci men Type: BLOOD SPECIMEN Ordering Facility: [facility] Address: [address] [place] [address] Performed By: #### 5 7021-8 #### [facility] CLIA [id number] [address] [place] [address] [place] Lymphocytes (Bld) [#/Vol] 1.10 10*3/uL Normal 1.00-4.00 [facility] Comment on above: Order Comment: Speci men Type: BLOOD SPECIMEN Ordering Facility: [facility] Address: [address] [place] [address] Performed By: #### 5 7021-8 #### [facility] CLIA [id number] [address] [place], [place] [id number] [place] Lymphocytes/100 WBC (Bld) 22.8 % Normal [facility] Comment on above: Order Comment: Speci men Type: BLOOD SPECIMEN Ordering Facility: [facility] Address: [address] [place] [address] Performed By: #### 5 7021-8 #### [facility] CLIA [id number] [address] [place] [address] [place] MCH (RBC) [Entitic mass] 31.8 pg Normal 26.0-34.0 [facility] Comment on above: Order Comment: Speci men Type: BLOOD SPECIMEN Ordering Facility: [facility] Address: [address] [place] [address] Performed By: #### 5 7021-8 #### [facility] CLIA [id number] [address] [place] [address] [place] MCHC (RBC) [Mass/Vol] 34.2 g/dL Normal 30.5-36.0 [facility] Comment on above: Order Comment: Speci men Type: BLOOD SPECIMEN Ordering Facility: [facility] Address: [address] [place] [address] Performed By: #### 5 7021-8 #### [id number] [address] [place] [address] [place] MCV (RBC) [Entitic vol] 93.2 fL Normal 80.0-100.0 [facility] Comment on above: Order Comment: Speci men Type: BLOOD SPECIMEN Ordering Facility: [facility] Address: [address] [place] [address] Performed By: #### 5 7021-8 #### [id number] [address] [place] [address] [place] Monocytes (Bld) [#/Vol] 0.52 10*3/uL Normal <0.87 [facility] Comment on above: Order Comment: Speci men Type: BLOOD SPECIMEN Ordering Facility: [facility] Address: [address] [place] [address] Performed By: #### 5 7021-8 #### [facility] CLIA [id number] [address] [place] [address] [place] Monocytes/100 WBC (Bld) 10.8 % Normal [facility] Comment on above: Order Comment: Speci men Type: BLOOD SPECIMEN Ordering Facility: [facility] Address: [address] [place] [address] Performed By: #### 5 7021-8 #### [facility] CLIA [id number] [address] [place] [address] [place] Neutrophils (Bld) [#/Vol] 2.93 10*3/uL Normal 1.45-7.50 [facility] Comment on above: Order Comment: Speci men Type: BLOOD SPECIMEN Ordering Facility: [facility] Address: [address] [place] [address] Performed By: #### 5 7021-8 #### [facility] CLIA [id number] [address] [place] [address] [place] Neutrophils/100 WBC (Bld) 60.6 % Normal [facility] Comment on above: Order Comment: Speci men Type: BLOOD SPECIMEN Ordering Facility: [facility] Address: [address] [place] [address] Performed By: #### 5 7021-8 #### [facility] CLIA [id number] [address] [place] [address] [place] Nucleated RBC (Bld) [#/Vol] 10*3/uL Normal <0.01 [facility] Comment on above: Order Comment: Speci men Type: BLOOD SPECIMEN Ordering Facility: [facility] Address: [address] [place] [address] Performed By: #### 5 7021-8 #### [facility] CLIA [id number] [address] [place] [address] [place] Nucleated RBC/100 WBC (Bld) [Ratio] 0.0 /100 WBC Normal [facility] Comment on above: Order Comment: Speci men Type: BLOOD SPECIMEN Ordering Facility: [facility] Address: [address] [place] [address] Performed By: #### 5 7021-8 #### [facility] CLIA [id number] [address] [place] [address] [place] Platelet mean volume (Bld) [Entitic vol] 9.9 fL Normal 9.0-12.7 [facility] Comment on above: Order Comment: Speci men Type: BLOOD SPECIMEN Ordering Facility: [facility] Address: [address] [place] [address] Performed By: #### 5 7021-8 #### [facility] CLIA [id number] [address] [place] [address] [place] Platelets (Bld) [#/Vol] 133 10*3/uL Low 150-400 [facility] Comment on above: Order Comment: Speci men Type: BLOOD SPECIMEN Ordering Facility: [facility] Address: [address] [place] [address] Result Comment: No c lot detected. Performed By: #### 5 7021-8 #### [facility] CLIA [id number] [address] [place] [address] [place] RBC (Bld) [#/Vol] 4.24 10*6/uL Normal 4.20-6.00 [facility] Comment on above: Order Comment: Speci men Type: BLOOD SPECIMEN Ordering Facility: [facility] Address: [address] [place] [address] Performed By: #### 5 7021-8 #### [facility] CLIA [id number] [address] [place] [address] [place] WBC (Bld) [#/Vol] 4.83 10*3/uL Normal 3.70-11.00 [facility] Comment on above: Order Comment: Speci men Type: BLOOD SPECIMEN Ordering Facility: [facility] Address: [address] [place] [address] Performed By: #### 5 7021-8 #### [facility] CLIA [id number] [address] [place] [address] [place] Comprehensive metabolic 2000 panelon 02-24-2025 Albumin [Mass/Vol] 3.9 g/dL Normal 3.9-4.9 [facility] Comment on above: Order Comment: Speci men Type: BLOOD SPECIMEN Ordering Facility: [facility] Address: [address] [place] [address] Performed By: #### 2 532-0, 2885-2, 74866-4 #### [facility] CLIA [id number] [address] [place] [address] [place] ALP [Catalytic activity/Vol] 66 U/L Normal 38-113 [facility] Comment on above: Order Comment: Speci men Type: BLOOD SPECIMEN Ordering Facility: [facility] Address: [address] [place] [address] Performed By: #### 2 532-0, 2885-2, 17568-3 #### [facility] CLIA [id number] [address] [place] [address] [place] ALT [Catalytic activity/Vol] 24 U/L Normal 10-54 [facility] Comment on above: Order Comment: Speci men Type: BLOOD SPECIMEN Ordering Facility: [facility] Address: [address] [place] [address] Performed By: #### 2 532-0, 2885-2, 08628-2 #### [facility] CLIA [id number] [address] [place] [address] [place] Anion gap [Moles/Vol] 6 mmol/L Low 8-15 [facility] Comment on above: Order Comment: Speci men Type: BLOOD SPECIMEN Ordering Facility: [facility] Address: [address] [place] [address] Performed By: #### 2 532-0, 2885-2, 43931-0 #### [facility] CLIA [id number] [address] [place] [address] [place] AST [Catalytic activity/Vol] 22 U/L Normal 14-40 [facility] Comment on above: Order Comment: Speci men Type: BLOOD SPECIMEN Ordering Facility: [facility] Address: [address] [place], [place] [address] Performed By: #### 2 532-0, 2885-2, 31996-1 #### [facility] CLIA [id number] [address] [place] [address] [place] Bilirubin [Mass/Vol] 0.8 mg/dL Normal 0.2-1.3 [facility] Comment on above: Order Comment: Speci men Type: BLOOD SPECIMEN Ordering Facility: [facility] Address: [address] [place] [address] Performed By: #### 2 532-0, 288-2, 40419-7 #### [facility] CLIA [id number] [address] [place] [address] [place] Calcium [Mass/Vol] 10.2 mg/dL Normal 8.5-10.2 [facility] Comment on above: Order Comment: Speci men Type: BLOOD SPECIMEN Ordering Facility: [facility] Address: [address] [place] [address] Performed By: #### 2 532-0, 2885-2, 51652-4 #### [facility] CLIA [id number] [address] [place] [address] [place] Chloride [Moles/Vol] 100 mmol/L Normal 98-107 [facility] Comment on above: Order Comment: Speci men Type: BLOOD SPECIMEN Ordering Facility: [facility] Address: [address] [place], [place] [address] Performed By: #### 2 532-0, 2885-2, 60486-3 #### [facility] CLIA [id number] [address] [place] [address] [place] CO2 [Moles/Vol] 32 mmol/L High 22-30 [facility] Comment on above: Order Comment: Speci men Type: BLOOD SPECIMEN Ordering Facility: [facility] Address: [address] [place], [place] [address] Performed By: #### 2 532-0, 2885-2, 84386-7 #### [facility] CLIA [id number] [address] [place] [address] [place] Creatinine [Mass/Vol] 1.65 mg/dL High 0.73-1.22 [facility] Comment on above: Order Comment: Speci men Type: BLOOD SPECIMEN Ordering Facility: [facility] Address: [address] [place], [place] [address] Performed By: #### 2 532-0, 2885-2, 25400-7 #### [facility] CLIA [id number] [address] [place] [address] [place] Creatinine and Glomerular filtration rate.predicted panel (S/P/Bld) 41 mL/min/1.73m??? Low >=60 [facility] Comment on above: Order Comment: Azeb kelley Type: BLOOD SPECIMEN Ordering Facility: [facility] Address: [address] [place] [address] Result Comment: Chantale mated Glomerular Filtration Rate (eGFR) is calculated using the 2020 CKD-EPI creatinine equation. This equation utilizes serum creatinine, sex, and age as parameters. The creatinine assay has traceable calibration to isotope dilution-mass spectrometry. Refer to KDIGO guidelines for clinical interpretation. In patients with unstable renal function, e.g. those with acute kidney injury, the eGFR may not accurately reflect actual GFR. Performed By: #### 2 532-0, 2885-2, #### [facility] CLIA [id number] [address] [place] [address] [place] Glucose [Mass/Vol] 99 mg/dL Normal 74-99 [facility] Comment on above: Order Comment: Azeb kelley Type: BLOOD SPECIMEN Ordering Facility: [facility] Address: [address] [place] [address] Result Comment: The [place] Diabetes Association (ADA) provides guidance for cutoff values for fasting glucose and random glucose. The ADA defines fasting as no caloric intake for at least 8 hours. Fasting plasma glucose results between 100 to 125 mg/dL indicate increased risk for diabetes (prediabetes). Fasting plasma glucose results greater than or equal to 126 mg/dL meet the criteria for diagnosis of diabetes. In the absence of unequivocal hyperglycemia, results should be confirmed by repeat testing. In a patient with classic symptoms of hyperglycemia or hyperglycemic crisis, random plasma glucose results greater than or equal to 200 mg/dL meet the criteria for diagnosis of diabetes. Reference: Standards of Medical Care in Diabetes 2016, [place] [employer] Association. Diabetes Care. 2016.39(Suppl 1). Performed By: #### 2 532-0, 2885-2, 52063-5 #### [id number] [address] [place] [address] [place] Potassium [Moles/Vol] 4.5 mmol/L Normal 3.7-5.1 [facility] Comment on above: Order Comment: Azeb kelley Type: BLOOD SPECIMEN Ordering Facility: [facility] Address: [address] [place] [address] Performed By: #### 2 532-0, 2885-2, 42363-8 #### [facility] [id number] [address] [place] [address] [place] Sodium [Moles/Vol] 138 mmol/L Normal 136-144 [facility] Comment on above: Order Comment: Azeb kelley Type: BLOOD SPECIMEN Ordering Facility: [facility] Address: [address] [place] [address] Performed By: #### 2 532-0, 2885-2, 51573-5 #### [facility] CLIA [id number] [address] [place] [address] [place] Urea nitrogen [Mass/Vol] 41 mg/dL High 9-24 [facility] Comment on above: Order Comment: Speci men Type: BLOOD SPECIMEN Ordering Facility: [facility] Address: [address] [place] [address] Performed By: #### 2 532-0, 2885-2, 62488-4 #### [facility] CLIA [id number] [address] [place] [address] [place] IMMUNOFIXATION SCREEN, SERUM on 02-24-2025 INTERPRETATION (MPA) Atypical restricted bands are present in the IgM and kappa regions. Consistent with IgM kappa monoclonal gammopathy. Normal [facility] Comment on above: Order Comment: Speci men Type: BLOOD SPECIMEN Ordering Facility: [facility] Address: [address] [place] [address] Performed By: #### I FES #### [facility] CLIA [id number] [address] [place] [address] [place] MPA RESULT M protein is present. Abnormal No M p rotein is identified. [facility] Comment on above: Order Comment: Speci men Type: BLOOD SPECIMEN Ordering Facility: [facility] Address: [address] [place] [address] Performed By: #### I FESC #### [facility] CLIA [id number] [address] [place], [place] [address] [place] STAFF REVIEW (MPA) Reviewed by Dr. Lubna Gunn MD Normal [facility] Comment on above: Order Comment: Speci men Type: BLOOD SPECIMEN Ordering Facility: [facility] Address: [address] [place] [address] Performed By: #### I FESC #### [facility] CLIA [id number] [address] [place], [place] [address] [place] IMMUNOGLOBULINS,IGG,IGA,IGMo n 02-24-2025 IgA [Mass/Vol] 86 mg/dL Normal 70-400 [facility] Comment on above: Order Comment: Speci men Type: BLOOD SPECIMEN Ordering Facility: [facility] Address: [address] [place] [address] Performed By: #### S ERIMM #### [facility] CLIA [id number] [address] [place] [address] [place] IgG [Mass/Vol] 578 mg/dL Low 700-1600 [facility] Comment on above: Order Comment: Speci men Type: BLOOD SPECIMEN Ordering Facility: [facility] Address: [address] [place] [address] Performed By: #### S ERIMM #### [facility] CLIA [id number] [address] [place] [address] [place] IgM [Mass/Vol] 969 mg/dL High 40-230 [facility] Comment on above: Order Comment: Speci men Type: BLOOD SPECIMEN Ordering Facility: [facility] Address: [address] [place] [address] Performed By: #### S ERIMM #### [facility] CLIA [id number] [address] [place] [address] [place] KAPPA/STONE,FREE,SERon 2024 Immunoglobulin light chains.kappa.free (S) [Mass/Vol] 55.8 mg/L High 3.3-19.4 [facility] Comment on above: Order Comment: Speci men Type: BLOOD SPECIMEN Ordering Facility: [facility] Address: [address] [place] [address] Result Comment: Rare ly, increased serum free light chains levels may not be detected or accurately quantified due to prozone phenomenon or in high viscosity samples using this immunoturbidimetric assay. Correlation with other laboratory results and clinical findings is recommended. The [place] Free Light Chain was performed using the Binding Site Optilite immunoturbidimetric method. Result obtained with different assay methods or kits cannot be used interchangeably. Performed By: #### K LFRS #### [facility] CLIA [id number] [address] [place] [address] [place] Immunoglobulin light chains.kappa/Immunog lobulin light chains.lambda (S) [Mass ratio] 1.70 High 0.26-1.65 [facility] Comment on above: Order Comment: Speci men Type: BLOOD SPECIMEN Ordering Facility: [facility] Address: [address] [place] [address] Performed By: #### K LFRS #### [facility] IA [id number] [address] [place] [address] [place] Immunoglobulin light chains.lambda.free [Mass/Vol] 32.8 mg/L High 5.7-26.3 [facility] Comment on above: Order Comment: Corneliai warren Type: BLOOD SPECIMEN Ordering Facility: [facility] Address: [address] [place] [address] Result Comment: Rare ly, increased serum free light chains levels may not be detected or accurately quantified due to prozone phenomenon or in high viscosity samples using this immunoturbidimetric assay. Correlation with other laboratory results and clinical findings is recommended. The [place] Free Light Chain was performed using the Binding Site Optilite immunoturbidimetric method. Result obtained with different assay methods or kits cannot be used interchangeably. Performed By: #### K LFRS #### [facility] CLIA [id number] [address] [place] [address] [place] LDH SerPl-cCncon 02-24-2025 LDH [Catalytic activity/Vol] 156 U/L Normal 135-225 [facility] Comment on above: Order Comment: Corneliai men Type: BLOOD SPECIMEN Ordering Facility: [facility] Address: [address] [place] [address] Result Comment: Hemo lysis present. The origin of the hemolysis, in vitro versus an in vivo hemolytic process, cannot be distinguished via this assay alone. In vitro hemolysis may lead to non-physiological (spurious) elevation in lactate dehydrogenase (LDH) results. The result should be interpreted in context of the clinical setting and other test results. Suggest reorder as clinically indicated. Performed By: #### 2 532-0, 2885-2, 44215-3 #### [facility] CLIA [id number] [address] [place] [address] [place] MONOCLONAL PROT UR W/INTERPo n 02-24-2025 STAFF REVIEW ([facility]) Reviewed by Dr. Lubna Gunn MD [facility] Comment on above: Order Comment: Speci men Type: BLOOD SPECIMEN Ordering Facility: [facility] Address: [address] [place] [address] Performed By: #### 1 952-1 #### [facility] CLIA [id number] [address] [place] [address] [place] UMPA RESULT No M protein is identified. Normal No M protein is identified. [facility] Comment on above: Order Comment: Speci men Type: BLOOD SPECIMEN Ordering Facility: [facility] Address: [address] [place] [address] Performed By: #### 1 952-1 #### [facility] CLIA [id number] [address] [place] [address] [place] PROTEIN ELECTROPHORESIS SERU M (P)on 02-24-2025 Albumin [Mass/Vol] 3.94 g/dL Normal 3.43-5.41 [facility] Comment on above: Order Comment: Speci men Type: BLOOD SPECIMEN Ordering Facility: [facility] Address: [address] [place] [address] Performed By: #### 1 952-1 #### [facility] CLIA [id number] [address] [place] [address] [place] Alpha 1 globulin Elph [Mass/Vol] 0.27 g/dL Normal 0.18-0.43 [facility] Comment on above: Order Comment: Speci men Type: BLOOD SPECIMEN Ordering Facility: [facility] Address: [address] [place] [address] Performed By: #### 1 952-1 #### [facility] CLIA [id number] [address] [place] [address] [place] Alpha 2 globulin Elph [Mass/Vol] 0.53 g/dL Normal 0.42-0.98 [facility] Comment on above: Order Comment: Speci men Type: BLOOD SPECIMEN Ordering Facility: [facility] Address: [address] [place] [address] Performed By: #### 1 952-1 #### [facility] CLIA [id number] [address] [place] [address] [place] Beta globulin Elph [Mass/Vol] 0.62 g/dL Normal 0.61-1.17 [facility] Comment on above: Order Comment: Speci men Type: BLOOD SPECIMEN Ordering Facility: [facility] Address: [address] [place] [address] Performed By: #### 1 952-1 #### [facility] CLIA [id number] [address] [place] [address] [place] Gamma globulin Elph [Mass/Vol] 1.05 g/dL Normal 0.53-1.51 [facility] Comment on above: Order Comment: Speci men Type: BLOOD SPECIMEN Ordering Facility: [facility] Address: [address] [place] [address] Performed By: #### 1 952-1 #### [facility] CLIA [id number] [address] [place], [place] [address] [place] INTERPRETATION COMMENT FOR PROTEIN ELECTROPHORESIS See separate immunofixation report for characterization of monoclonal gammopathy. Normal [facility] Comment on above: Order Comment: Speci men Type: BLOOD SPECIMEN Ordering Facility: [facility] Address: [address] [place] [address] Performed By: #### 1 952-1 #### [facility] CLIA [id number] [address] [place] [address] [place] M-PROTEIN LOCATION Gamma Fraction 1 Normal [facility] Comment on above: Order Comment: Speci men Type: BLOOD SPECIMEN Ordering Facility: [facility] Address: [address] [place] [address] Performed By: #### 1 952-1 #### [facility] CLIA [id number] [address] [place] [address] [place] Protein Fractions [Interp] An M protein is identified on protein electrophoresis. Abnormal No definitive M protein is identified on protein electrophores is. [facility] Comment on above: Order Comment: Speci men Type: BLOOD SPECIMEN Ordering Facility: [facility] Address: [address] [place] [address] Performed By: #### 1 952-1 #### [facility] CLIA [id number] [address] [place] [address] [place] Protein.monoclonal Elph [Mass/Vol] 0.46 g/dL High <=0.00 [facility] Comment on above: Order Comment: Speci men Type: BLOOD SPECIMEN Ordering Facility: [facility] Address: [address] [place] [address] Performed By: #### 1 952-1 #### [facility] CLIA [id number] [address] [place] [address] [place] SPE STAFF REVIEW Reviewed by Dr. Lubna Gunn MD Normal [facility] Comment on above: Order Comment: Speci men Type: BLOOD SPECIMEN Ordering Facility: [facility] Address: [address] [place] [address] Performed By: #### 1 952-1 #### [facility] CLIA [id number] [address] [place], [place] [address] [place] Prot SerPl-mCncon 02-24-2025 Protein [Mass/Vol] 6.4 g/dL Normal 6.3-8.0 [facility] Comment on above: Order Comment: Speci men Type: BLOOD SPECIMEN Ordering Facility: [facility] Address: [address] [place] [address] Performed By: #### 2 532-0, 2885-2, 93630-6 #### [facility] CLIA [id number] [address] [place] [address] [place] Prot Ur-mCncon 02-24-2025 Protein (U) [Mass/Vol] 19 mg/dL Normal 0-20 [facility] Comment on above: Order Comment: Speci men Type: URINE SPECIMEN Ordering Facility: [facility] Address: [address] [place] [address] Performed By: #### 2 888-6 #### [facility] CLIA [id number] [address] [place] [address] [place] URINE PROTEIN ELECTROPHORESI S RANDOM (P)on 02-24-2025 Albumin Elph (U) [Mass fraction] 49.25 % Normal [facility] Comment on above: Order Comment: Speci men Type: BLOOD SPECIMEN Ordering Facility: [facility] Address: [address] [place] [address] Performed By: #### 1 952-1 #### [facility] CLIA [id number] [address] [place] [address] [place] Alpha 1 globulin Elph (U) [Mass fraction] 4.97 % Normal [facility] Comment on above: Order Comment: Speci men Type: BLOOD SPECIMEN Ordering Facility: [facility] Address: [address] [place] [address] Performed By: #### 1 952-1 #### [facility] CLIA [id number] [address] [place] [address] [place] Alpha 2 globulin Elph (U) [Mass fraction] 9.03 % Normal [facility] Comment on above: Order Comment: Speci men Type: BLOOD SPECIMEN Ordering Facility: [facility] Address: [address] [place] [address] Performed By: #### 1 952-1 #### [facility] CLIA [id number] [address] [place] [address] [place] Beta globulin Elph (U) [Mass fraction] 16.79 % Normal [facility] Comment on above: Order Comment: Speci men Type: BLOOD SPECIMEN Ordering Facility: [facility] Address: [address] [place] [address] Performed By: #### 1 952-1 #### [facility] CLIA [id number] [address] [place] [address] [place] Gamma globulin Elph (U) [Mass fraction] 19.97 % Normal [facility] Comment on above: Order Comment: Speci men Type: BLOOD SPECIMEN Ordering Facility: [facility] Address: [address] [place] [address] Performed By: #### 1 952-1 #### [facility] CLIA [id number] [address] [place] [address] [place] INTERPRETATION COMMENT FOR PROTEIN ELECTROPHORESIS The atypical region did not stain on accompanying immunofixation and therefore is unlikely to be a monoclonal immunoglobulin. Normal [facility] Comment on above: Order Comment: Speci men Type: BLOOD SPECIMEN Ordering Facility: [facility] Address: [address] [place] [address] Performed By: #### 1 952-1 #### [facility] CLIA [id number] [address] [place] [address] [place] Protein Fractions Elph Simone (U) [Interp] An atypical region of restricted mobility is identified on protein electrophoresis. Abnormal No definitive M protein is identified on protein electrophores is. [facility] Comment on above: Order Comment: Speci men Type: BLOOD SPECIMEN Ordering Facility: [facility] Address: [address] [place] [address] Performed By: #### 1 952-1 #### [facility] CLIA [id number] [address] [place] [address] [place] STAFF REVIEW (URINE ELECTRO) Reviewed by Dr. Corie Gunn MD Normal [facility] Comment on above: Order Comment: Speci men Type: BLOOD SPECIMEN Ordering Facility: [facility] Address: [address] [place] [address] Performed By: #### 1 952-1 #### [facility] CLIA [id number] [address] [place] [address] [place] Urgent Care Visit Reporton 0 01-16-2025 Urgent Care Visit Report [facility] [address], [address] [place], [place] [address] OFFICE VISIT Date of Service: 01/16/25 MR#: [id number] Acct: [id number] Name: CORAL BUSH Rep #: [id number] : 1940 Provider: NIK Zhou Age/Sex: 84/M Location: [facility] Status: Signed Intake Vital Signs 01/11/25 07:54 01/16/25 09:43 Height 5 ft 7 in 5 ft 6 in Weight: 191 lb BMI 30.8 BP 120/80 Position Sitting Pulse 62 Temp 98.2 F Temp Source Oral Pulse Oximetry (%) 96 Oxygen Delivery Method room air Intake Visit Reasons: Cough Accompanied by: Self Allergies ciprofloxacin (From Cipro) Allergy (Verified 01/16/25 09:44) Swelling Medications ???Medication ???Instructions ???Recorded ???Confirmed ???Type cholecalciferol (vitamin D3) 50 2,000 unit PO DAILY 09/30/1701/16 History mcg (2,000 unit) capsule fluticasone propionate 220 1 puff inhalation BID 09/30/17 History mcg/actuation HFA aerosol inhaler (Flovent HFA) metoprolol tartrate 100 mg tablet 100 mg PO BID 09/30/17 01/16/25 H istory saw palmetto 450 mg capsule 450 mg PO BID 09/30/17 01/16/25 Hi story simvastatin 10 mg tablet 10 mg PO MOWEFR 09/30/17 01/16/25 History doxazosin 4 mg tablet (Cardura) 4 mg PO QHS 09/15/19 01/16/25 Hist ory lisinopril 40 mg tablet 60 mg PO DAILY 11/11/20 01/16/25 H istory vitamins A,C,E-qanx-wsvbvx 2,148 2 tab PO BID 12/26/22 01/16/25 His tory mcg-113 mg-45 mg-17.4 mg tablet (PreserVision AREDS) chlorthalidone 25 mg tablet 12.5 mg PO DAILY 04/15/23 01/16/25 History azithromycin 250 mg tablet See Rx Instructions PO .COMPLEX #6 01/16/25 01/16/25 Rx tabs Have you fallen in the past year?: No Nurse's Note: Patient has a cough that has been going on for 2-3 days. Patient states he has lots of mucus. PFS Medical History Macular hole Mitral valve regurgitation History of steroid therapy Arthritis High cholesterol Non-smoker History of edema Cardiology follow-up encounter Wears glasses Cancer Alcohol use Easy bruising Brain aneurysm History of renal disease Asthma Obesity HLD (hyperlipidemia) Essential (primary) hypertension Spinal stenosis of lumbosacral region Degeneration of intervertebral disc of lumbosacral region Radiculopathy of lumbosacral region Surgical History History of cholecystectomy Hx of colonoscopy History of hernia repair Family History Father CVA (cerebral vascular accident) Brother CAD (coronary artery disease) CVA (cerebral vascular accident) Mother CVA (cerebral vascular accident) Social History Smoking Status: Former smoker alcohol intake: never HPI HPI Details: CORAL BUSH, is a 84 M who presents to the office today for cough -sx started about 2 days ago -cough with mucus clear to green -runny nose no congestion -no fever or chills or myalgias -irritated throat- no ear pain -quit smoking 40 yrs ago -hx exercise induced asthma- + wheezing- denies sob, cp and palpitations -tried so far mucinex ROS Const Constitutional: Positive for other (ROS negative x6 except what was placed in HPI) Exam Const General: cooperative, comfortable and no acute distress Orientation: alert, awake and oriented x3 [facility] Head: normal to inspection and normocephalic Ears: hearing grossly normal bilaterally, external ears normal and TM's normal bilaterally Nose: external nose normal and other (moderate + congestion and rhinorrhea) Face and sinus: normal facial exam, sinuses nontender and face symmetric Mouth: oral mucosae normal, lip normal, tongue normal, oropharynx normal and moist mucous membranes Throat: posterior oropharynx normal, tonsils normal, uvula midline and postnasal drainage Other: -wet cough heard on exam- spit up a small amount of thick white sputum Neck Neck: normal visual inspection, full ROM and no lymphadenopathy Resp Effort Inspection: normal respiratory effort, able to speak in complete sentences and symmetric chest movement Auscultation: Bilateral: Clear to Auscultation, Left: Clear to Auscultation and Right: Clear to Auscultation Cardio Rate: regular rate Rhythm: regular rhythm Heart Sounds: S1 normal and S2 normal GI Auscultation: normal bowel sounds Palpation: soft Skin General: no rashes or lesions noted and turgor normal Neuro General: patient alert, patient awake and patient oriented x3 Cognition: normal cognition Speech: speech normal Psych Appearance: grossly normal Mental Status: mental status grossly normal At (more content not included)... Normal [facility] 01-12-2025 [facility] Telephone (MANUEL) CORAL BUSH ([id number]) 1940 M Date Time Provider Department 01/12/25 JEFFRY ARREDONDO During your visit today, we recorded the following information about you: Katharina Escamilla 01/12/2025 2:36 PM Signed Patient called asking if labs and office visit are needed for this year. Please advise. Suzi Fuller LPN 01/12/2025 3:08 PM Signed Last OV 02/19/2024- Plan: -Labs -Hydrate and recheck BMP this Saturday. -Will check neuropathy associated antibodies. Jeffry Arredondo DO 01/12/2025 3:58 PM Signed Yes CBC/CMP/Myeloma labs then OV with Elizabeth in . DO [place] Aragon Katharina 01/13/2025 12:54 PM Signed 1st attempt. Spoke with spouse. Patient is resting and will call back to schedule appointments in . lab - CBC/CMP/MYELOMA LAB then Office Visit with Elizabeth . Katharina Escamilla 01/13/2025 2:05 PM Signed Scheduled with patient Allergies As of Date: 01/12/2025 Noted Allergy Reaction CIPROFLOXACIN 10/22/2019 9 - Itching Date Reviewed: 02/19/2024 Reviewed by: Ozzie Ware MA - Fully Assessed Reason for Visit: Patient Question [8217] Prescriptions as of 01/13/2025 - simvastatin (ZOCOR) 10 mg tablet Take 10 mg by mouth daily at bedtime. - chlorthalidone (HYGROTON) 25 mg tablet Take 12.5 mg by mouth once daily. - vit C/E/Zn/coppr/lutein/ze axan (PRESERVISION AREDS-2 ORAL) Take 1 tablet by mouth twice daily. - SAW PALMETTO ORAL 2 capsules once daily. - fluticasone (FLOVENT) 220 mcg/actuation inhaler 1 Puff twice daily. - omega 1-yso-ttw-fish oil (FISH OIL) 300-1,000 mg cpDR 1 capsule once daily. - metoprolol tartrate, short acting, (LOPRESSOR) 100 mg tablet Take 100 mg by mouth twice daily. - lisinopril (ZESTRIL, PRINIVIL) 40 mg tablet Take 60 mg by mouth once daily. - doxazosin (CARDURA) 4 mg tablet Take 4 mg by mouth daily at bedtime. - cholecalciferol (VITAMIN D-3) 2,000 unit tablet Take 2,000 Units by mouth once daily. 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 Mook Burch, DO Status: [facility] Study: Fluor Guidance for Spine Inj Date of Exam: Exam# [id number] Ordering Dr: Gerardo Barker MD PROCEDURE: Fluoroscopy use. 01/11/2025 REASON FOR EXAM: BLOCK, CAUDAL TECHNIQUE: A single spot image was obtained during caudal nerve block. 6.2 seconds of fluoroscopic time utilized. COMPARISON: None. FINDINGS: A single intraoperative lateral spot image of the sacrum was obtained during caudal nerve block. Needle tip projects over the distal aspect of the sacrum on the provided image. RAD/Fluor Guidance for Spine Inj IMPRESSION: Documentation of fluoroscopy use during caudal nerve block. Please see the procedure note for details. Reading Location: [facility] CC: Dr. Gerardo Barker MD; Dr. Mook Burch DO Tractor Trailer Mechanic: Signed [facility] MR/POSTOP.ANEon 01-11-2025 MR/POSTOP.[facility] Medical Records Department [address] [place] [address] Anesthesia Postop Eval I 01/11/25 0957 MR#: [id number] Acct: [id number] Name: CORAL BUSH Rep #: [id number] : 1940 84 From: Shannon Crews CRNA PCP: Dr. Mook Burch, DO Status:[facility] Y Race: C Location: [facility] Anesthesia: Postop Eval I Current Vital Signs Temperature: 98.3 F Pulse Rate: 62 Blood Pressure: 145/84 Respiratory Rate: 14 Pulse Ox: 98 Oxygen Delivery Method: Room Air Assessment Airway patent: Yes Spontaneous unlabored respirations: Yes Mental status: Awake nausea: No Vomiting: No Anesthesia Complication: No Fluid Hydration Crystalloid volume administer (ml): 10 Total IV fluid infused: 10 Progress Note Anesthesia document: Postop Eval 1 completed: Yes 01/11/25 0957 Date [facility] PRECISION AGRICULTURE SPECIALIST Cosigner Signature: Date CC: Signed Normal [facility] MR/[id number] 01-11-2025 [facility] Medical Records Department [address] [place] [id number] Anesthesia Postop Eval II 01/11/25 1026 MR#: [id number] Acct: [id number] Name: CORAL BUSH Rep #: [id number] : 1940 84 From: Lou Colorado PCP: Dr. Mook Burch, DO Status:REG [facility] Y Race: C Location: [facility] Anesthesia Postop Eval I Sum Postop Eval Completion status Anesthesia document: Postop Eval 1 completed: Yes Anesthesia Postop Eval I Summary Anesthesia Postop Eval I Summary: Anesthesia Postop Eval I: Assessment Summary Airway patent Yes 01/11/25 09:57 PRECISION AGRICULTURE SPECIALIST.LMIL Spontaneous unlabored Yes 01/11/25 09:57 PRECISION AGRICULTURE SPECIALIST.LMIL respirations Mental status Awake 01/11/25 09:57 PRECISION AGRICULTURE SPECIALIST.LMIL nausea No 01/11/25 09:57 PRECISION AGRICULTURE SPECIALIST.LMIL Vomiting No 01/11/25 09:57 PRECISION AGRICULTURE SPECIALIST.LMIL Anesthesia Postop Eval I: Fluid Summary Crystalloid volume administer 10 01/11/25 09:57 PRECISION AGRICULTURE SPECIALIST.LMIL (ml) Colloids volume administered ( ml) Blood Product volume administered (ml) Total IV fluid infused 10 01/11/25 09:57 PRECISION AGRICULTURE SPECIALIST.LMIL Anesthesia Postop Eval I: Summary Notes Anesthesia Complication No 01/11/25 09:57 PRECISION AGRICULTURE SPECIALIST.LMIL Anesthesia Complication Comment: Post-operative progress note Anesthesia: Postop Eval II Evaluation Mental status: Awake Pain Level: 2 nausea: No Vomiting: No 01/11/25 1026 Date Lou Estrada Signature: Date CC: Signed Normal [facility] Operative Reporton 5 Operative Report [facility] Medical Records Department [address] [place] [address] Operative Report 01/11/25 1008 MR#: [id number] Acct: [id number] Name: CORAL BUSH Rep #: [id number] : 1940 84 From: Gerardo Barker MD PCP: Dr. Mook Bruch, DO Status:REG [facility] Location: [facility] Operative Report (Standard) Operative Information Date of Procedure: 01/11/25 Pre-Operative Diagnosis: 1 Post-Operative Diagnosis: 1 Surgery/Procedure Performed: 1 multimedia authoring specialist: No Type of Anesthesia: Local MAC RN Documented Start/Stop Times: Operation Date: 01/11/25 09:20 Case Time Into Pre-Op 01/11/25 07:17 Anesthesia Start 01/11/25 09:38 Into Room 01/11/25 09:38 Procedure End 01/11/25 09:47 Anesthesia End 01/11/25 09:50 Into Recovery 01/11/25 09:50 Out of Room 01/11/25 09:50 Out of Recovery 01/11/25 10:05 Procedure Start Time: 10:08 Procedure Stop Time: 10:08 Select all DRAINS/GRAFTS/IMPLANTS that apply: None Estimated Blood Loss: 1 Specimen collected: No Description of surgery: Pre-Operative Diagnosis: Lumbosacral radiculopathy, lumbosacral degenerative disc disease, lumbosacral spinal stenosis Post-Operative Diagnosis: Lumbosacral radiculopathy, lumbosacral degenerative disc disease, lumbosacral spinal stenosis Surgery/Procedure Performed:: Diagnostic/therapeutic caudal epidural steroid injection under fluoroscopic guidance Type of Anesthesia: MAC Estimated Blood Loss (mL): Minimal Description of Procedure: DESCRIPTION OF PROCEDURE: History and physical of today was reviewed. Risks and benefits of the procedure were explained. The patient understood and agreed to proceed. Informed consent was obtained. IV inserted per routine protocol. The patient was taken to the operating room and placed in the prone position with a pillow positioned underneath the abdomen. The lower back and tailbone area was prepped and draped in a sterile fashion using iodine x3. Under fluoroscopy guidance on a lateral view, the caudal space was identified. The skin and subcutaneous tissue was anesthetized with approximately 3 mL of 1% lidocaine using a 25-gauge regular needle. Under direct visualization with fluoroscopy, using a 22-gauge 3-1/2-inch spinal needle, the needle was advanced via the skin through the sacral hiatus. The tip of the needle was passed through the sacrococcygeal ligament and advanced to approximately S4 area. After negative aspiration of blood or CSF, a total of 3 mL of contrast was injected to confirm correct placement of the needle as well as cephalad spread. The spread was followed to approximately L5 area. After confirmation on AP as well as lateral view and repeated negative aspiration, a total of 15 mL of preservative-free 0.125% Marcaine with 80 mg of Depo-Medrol was injected easily. The needle was then removed intact. The patient experienced no sign or symptoms of intrathecal or intravascular injection. The patient experienced no paresthesia. The procedure was completed without any apparent difficulty or any complications. The patient appeared to tolerate it well. ASSESSMENT AND PLAN: This is an 84-year-old male with lumbosacral radiculopathy, lumbosacral degenerative disc disease, lumbosacral spinal stenosis status post diagnostic/therapeutic caudal epidural steroid injection, patient will continue his current medications, patient will follow in approximately 2 weeks for reevaluation. Surgical Findings: 1 Complications Complications: No Admit VTE Documentation VTE Present on Admission: No VTE Mechan Device Prophylaxis: None VTE Pharm Prophylaxis ordered?: No 01/11/25 1009 Cosigner Signature (if applicable): CC: Dr. Gerardo Barker MD; Dr. Mook Burch, DO Signed Normal [facility] MR/PAT.ZEESHANon 01-08-2025 MR/PAT.ANE [facility] Medical Records Department [address] [place] [address] PAT - Anesthesia 01/08/25 1425 MR#: [id number] Acct: [id number] Name: CORAL BUSH Rep #: [id number] : 1940 84 From: Bryan Eduardo MD PCP: Dr. Mook Burch DO Status:PRE [facility] Y Race: C Location: [facility] Pre-Assessment Diagnosis/Proposed Procedure Planned Operative Procedure(s): CAUDAL BLOCK Anesthesia History Anesthesia History - shoemaker custom: Anesthesia History - shoemaker custom Hx Hospitalization No 01/08/25 11:46 Any Problems With Anesthesia No 01/08/25 11:46 Cholinesterase deficiency No 01/08/25 11:46 You/Your Family Experience No 01/08/25 11:46 fever (hyperthermia) with Relationship Recent Exposure to Contagious No 01/13/24 08:09 Disease Does patient have nerve No 01/08/25 11:46 stimulator Patient instructed to have device shut off --Does patient have Pacemaker or ICD? When Was Last Pacemaker Check QUESTION #4 FULL TEXT: You/Your Family Experience fever (hyperthermia) with Anesthesia Last Oral Intake Last Oral intake: Last Oral Intake NPO since Meds taken in AM with sips of water? Meds patient instructed to take am of surgery PONV PONV - shoemaker custom: PONV - shoemaker custom Female No 01/08/25 11:46 HX of Motion Sickness No 01/08/25 11:46 HX of N/V After Surgery No 01/08/25 11:46 Non-Smoker Yes 01/08/25 11:46 Duration of Surgery greater No 01/08/25 11:46 than 60 minutes Number of Risk Factors 1 01/08/25 11:46 PONV Score Low Risk 01/08/25 11:46 Height Weight Height Weight: Anesthesia: Height Weight Height 6 ft 7 in 02/04/24 14:24 Respiratory Assessment Respiratory Assessment - shoemaker custom: Respiratory Tract Infection Hx - shoemaker custom Hx Respiratory Tract Infection No 01/08/25 11:46 STOP Sleep Apnea STOP Sleep Apnea - shoemaker custom: STOP Sleep Apnea - shoemaker custom Hx Hypertension Yes: CONTROLLED ON MED 01/08/25 11:46 Hx Sleep Apnea No 01/08/25 11:46 CPAP BIPAP Do you snore loudly (louder No 01/08/25 11:46 than talking or can be heard Do you often feel tired/ No 01/08/25 11:46 fatigued/ sleepy during daytime? Has anyone observed you stop No 01/08/25 11:46 breathing during sleep? STOP Results Negative 01/08/25 11:46 QUESTION #5 FULL TEXT : Do you snore loudly (louder than talking or can be heard through closed doors)? 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 Specify any problems Hx of Preganancy in last 3 N/A 01/08/25 11:46 Months Nurse Filling Out Transfusion NBUCHER 01/08/25 11:46 Questions: Date: 01/08/25 01/08/25 11:46 Time: 11:48 01/08/25 11:46 Patient unable to answer at this time (ie. confused, unrespo /Reproduction History /Reproductive History - shoemaker custom: /Reproductive Hx- shoemaker custom Hx Now Gestational Age (in weeks): EDC: Hx Hx Para Hx Section SAB PFSH Medical History (Updated 01/08/25 @ 11:51 by Mila Shea) Macular hole Mitral valve regurgitation History of steroid therapy Arthritis High cholesterol Non-smoker History of edema Cardiology follow-up encounter Wears glasses Cancer Alcohol use Easy bruising Brain aneurysm History of renal disease Asthma Obesity HLD (hyperlipidemia) Essential (primary) hypertension Spinal stenosis of lumbosacral region Degeneration of intervertebral disc of lumbosacral region Radiculopathy of lumbosacral region Home Medications ???Medication ???Instructions ???Recorded ???Last Taken ???Type cholecalciferol (vitamin D3) 50 2,000 unit PO DAILY 09/30/17 Unkno wn History mcg (2,000 unit) capsule fluticasone propionate 220 1 puff inhalation BID 09/30/1702/11 07:00 History mcg/actuation HFA aerosol inhaler 1 PUFF (Flovent HFA) metoprolol tartrate 100 mg tablet 100 mg PO BID (more content not included)... Normal [facility] .Auto Diffon 01-05-2025 Basophil, Absolute 0.0 10 3/mcL Normal 0.0-0.2 [facility] Comment on above: Performed By: #### G FR, ADIFF, RFP, VIDH, ANEU, CBC #### [place] [address] #### PTH #### [address] [address] Basophils/100 WBC (Bld) 0.6 % Normal 0.0-2.5 [facility] Comment on above: Performed By: #### G FR, ADIFF, RFP, VIDH, ANEU, CBC #### [address] [address] #### PTH #### [address] [address] Eosinophil, Absolute 0.2 10 3/mcL Normal 0.0-0.7 [facility] Comment on above: Performed By: #### G FR, ADIFF, RFP, VIDH, ANEU, CBC #### [place] [address] #### PTH #### [address] [address] Eosinophils/100 WBC (Bld) 4.5 % Normal 0.0-7.0 [facility] Comment on above: Performed By: #### G FR, ADIFF, RFP, VIDH, ANEU, CBC #### [address] [address] #### PTH #### [address] [address] Lymphocyte, Absolute 1.0 10 3/mcL Normal 0.9-4.3 [facility] Comment on above: Performed By: #### G FR, ADIFF, RFP, VIDH, ANEU, CBC #### [address] [address] #### PTH #### [address] [address] Lymphocytes/100 WBC (Bld) 21.9 % Normal 20.0-40.0 [facility] Comment on above: Performed By: #### G FR, ADIFF, RFP, VIDH, ANEU, CBC #### [place] [address] #### PTH #### [address] [address] Monocyte, Absolute 0.5 10 3/mcL Normal 0.1-1.4 [facility] Comment on above: Performed By: #### G FR, ADIFF, RFP, VIDH, ANEU, CBC #### [place] [address] #### PTH #### [address] [address] Monocytes/100 WBC (Bld) 11.7 % Normal 2.0-13.0 [facility] Comment on above: Performed By: #### G FR, ADIFF, RFP, VIDH, ANEU, CBC #### [address] [address] #### PTH #### [address] [address] Neutrophils/100 WBC (Bld) 61.3 % Normal 50.0-75.0 [facility] Comment on above: Performed By: #### G FR, ADIFF, RFP, VIDH, ANEU, CBC #### [place] [address] #### PTH #### [address] [address] .GFRon 01-05-2025 Estimated Glomerular Filtration Rate 41 ml/min/1.73sqm Normal [facility] Comment on above: Result Comment: Stages of Chronic Kidney Disease (CKD) Stage Description eGFR(ml/min/1.73 sq.m.) CKD 1 Normal kidney function or >=90 normal kindney function with possible kidney damage (ex. Proteinuria) CKD 2 Kidney damage with mild loss 60-89 of kidney function CKD 3a Mild to moderate loss of kidney 45-59 function CKD 3b Moderate to severe loss of 30-44 of kindey function CKD 4 Severe loss of kidney function 15-29 CKD 5 Kidney failure <15 Note: (go live 2024) the eGFR calculation was updated to the 2020 CKD-EPI creatinine equation without a race factor to calculate the eGFR results. Performed By: #### G FR, ADIFF, RFP, VIDH, ANEU, CBC #### [address] [address] #### PTH #### [place] [address] Estimated Glomerular Filtration Rate 42 ml/min/1.73sqm Normal [facility] Comment on above: Result Comment: Stages of Chronic Kidney Disease (CKD) Stage Description eGFR(ml/min/1.73 sq.m.) CKD 1 Normal kidney function or >=90 normal kindney function with possible kidney damage (ex. Proteinuria) CKD 2 Kidney damage with mild loss 60-89 of kidney function CKD 3a Mild to moderate loss of kidney 45-59 function CKD 3b Moderate to severe loss of 30-44 of kindey function CKD 4 Severe loss of kidney function 15-29 CKD 5 Kidney failure <15 Note: (go live 2024) the eGFR calculation was updated to the 2020 CKD-EPI creatinine equation without a race factor to calculate the eGFR results. Performed By: #### G FR, ADIFF, RFP, VIDH, ANEU, CBC #### [address] [address] #### PTH #### [place] [id number] .NEUABSon 01-05-2025 Neutrophil, Absolute 2.8 10 3/mcL Normal 2.3-8.1 [facility] Comment on above: Performed By: #### G FR, ADIFF, RFP, VIDH, ANEU, CBC #### [address] [address] #### PTH #### [place] [address] .Urinalysis Microscopic (AO) on 01-05-2025 UA RBC 0-5 Abnormal None Seen [facility] Comment on above: Performed By: #### G FR, ADIFF, RFP, VIDH, ANEU, CBC #### [place] [address] #### PTH #### [place] [address] UA Squam Epithelial 5-10 Abnormal None Seen [facility] Comment on above: Performed By: #### G FR, ADIFF, RFP, VIDH, ANEU, CBC #### [place] [address] #### PTH #### [place] [address] UA WBC 0-5 Abnormal None Seen [facility] Comment on above: Performed By: #### G FR, ADIFF, RFP, VIDH, ANEU, CBC #### [place] [address] #### PTH #### [place] [address] CBCon 01-05-2025 Erythrocyte distribution width (RBC) [Ratio] 14.1 % Normal 11.5-15.5 [facility] Comment on above: Performed By: #### G FR, ADIFF, RFP, VIDH, ANEU, CBC #### [place] [address] #### PTH #### [place] [address] Hematocrit (Bld) [Volume fraction] 40.9 % Normal 40.0-52.0 [facility] Comment on above: Performed By: #### G FR, ADIFF, RFP, VIDH, ANEU, CBC #### [place] [address] #### PTH #### [place] [address] Hgb 14.3 G/dL Normal 13.0-17.5 [facility] Comment on above: Performed By: #### G FR, ADIFF, RFP, VIDH, ANEU, CBC #### [place] [address] #### PTH #### [place] [address] MCH (RBC) [Entitic mass] 32.7 pg Normal 27.0-33.0 [facility] Comment on above: Performed By: #### G FR, ADIFF, RFP, VIDH, ANEU, CBC #### [place] [address] #### PTH #### [place] [address] MCHC 35.0 G/dL Normal 32.0-36.0 [facility] Comment on above: Performed By: #### G FR, ADIFF, RFP, VIDH, ANEU, CBC #### [place] [address] #### PTH #### [place] [address] MCV (RBC) [Entitic vol] 93.5 fL Normal 81.0-100.0 [facility] Comment on above: Performed By: #### G FR, ADIFF, RFP, VIDH, ANEU, CBC #### [place] [address] #### PTH #### [place] [address] Platelet 117 10 3/mcL Low 150-450 [facility] Comment on above: Performed By: #### G FR, ADIFF, RFP, VIDH, ANEU, CBC #### [address] [address] #### PTH #### [address] [address] Platelet mean volume (Bld) [Entitic vol] 8.5 fL Normal 6.4-10.5 [facility] Comment on above: Performed By: #### G FR, ADIFF, RFP, VIDH, ANEU, CBC #### [address] [address] #### PTH #### [place] [address] RBC 4.38 10 6/mcL Low 4.50-6.00 [facility] Comment on above: Performed By: #### G FR, ADIFF, RFP, VIDH, ANEU, CBC #### [place] [address] #### PTH #### [place] [address] WBC 4.6 10 3/mcL Normal 4.5-10.8 [facility] Comment on above: Performed By: #### G FR, ADIFF, RFP, VIDH, ANEU, CBC #### [place] [address] #### PTH #### [place] [address] CMPon 01-05-2025 Albumin Level 3.7 G/dL Normal 3.4-4.8 [facility] Comment on above: Performed By: #### G FR, ADIFF, RFP, VIDH, ANEU, CBC #### [place] [address] #### PTH #### [place] [address] Albumin/Globulin [Mass ratio] 1.2 {ratio} Normal 1.1-2.5 [facility] Comment on above: Performed By: #### G FR, ADIFF, RFP, VIDH, ANEU, CBC #### [place] [address] #### PTH #### [address] [address] ALP [Catalytic activity/Vol] 73 U/L Normal 40-135 [facility] Comment on above: Performed By: #### G FR, ADIFF, RFP, VIDH, ANEU, CBC #### [address] [address] #### PTH #### [address] [address] ALT [Catalytic activity/Vol] 45 U/L Normal 16-63 [facility] Comment on above: Performed By: #### G FR, ADIFF, RFP, VIDH, ANEU, CBC #### [address] [address] #### PTH #### [address] [address] AST [Catalytic activity/Vol] 36 U/L Normal 10-40 [facility] Comment on above: Performed By: #### G FR, ADIFF, RFP, VIDH, ANEU, CBC #### [address] [address] #### PTH #### [address] [address] Bili Total 1.0 mg/dL Normal 0.2-1.0 [facility] Comment on above: Result Comment: Use of this assay is not recommended for patients undergoing treatment with eltrombopag due to the potential for falsely elevated results. Performed By: #### G FR, ADIFF, RFP, VIDH, ANEU, CBC #### [address] [address] #### PTH #### [address] [address] BUN/Creatinine Ratio 23 ratio Normal 7-27 [facility] Comment on above: Performed By: #### G FR, ADIFF, RFP, VIDH, ANEU, CBC #### [address] [address] #### PTH #### [address] [address] Calcium [Mass/Vol] 9.6 mg/dL Normal 8.4-10.2 [facility] Comment on above: Performed By: #### G FR, ADIFF, RFP, VIDH, ANEU, CBC #### [address] [address] #### PTH #### [address] [address] Chloride [Moles/Vol] 101 mmol/L Normal 98-107 [facility] Comment on above: Performed By: #### G FR, ADIFF, RFP, VIDH, ANEU, CBC #### [place] [address] #### PTH #### [place] [address] CO2 [Moles/Vol] 35 mmol/L High 23-31 [facility] Comment on above: Performed By: #### G FR, ADIFF, RFP, VIDH, ANEU, CBC #### [place] [address] #### PTH #### [place] [address] Creatinine [Mass/Vol] 1.65 mg/dL High 0.70-1.30 [facility] Comment on above: Result Comment: Test ing performed on Siemens Dimension EXL analyzer using a modified kinetic Edel technique. Performed By: #### G FR, ADIFF, RFP, VIDH, ANEU, CBC #### [place] [address] #### PTH #### [place] [address] Electrolyte Balance 0.0 mEq/L Low 4.0-15.0 [facility] Comment on above: Performed By: #### G FR, ADIFF, RFP, VIDH, ANEU, CBC #### [place] [address] #### PTH #### [place] [address] Globulin 3.0 G/dL Normal 1.5-3.8 [facility] Comment on above: Performed By: #### G FR, ADIFF, RFP, VIDH, ANEU, CBC #### [address] [address] #### PTH #### [address] [address] Glucose [Mass/Vol] 96 mg/dL Normal 83-110 [facility] [facility] Comment on above: Performed By: #### G FR, ADIFF, RFP, VIDH, ANEU, CBC #### [address] [address] #### PTH #### [address] [address] Potassium [Moles/Vol] 4.2 mmol/L Normal 3.5-5.1 [facility] Comment on above: Performed By: #### G FR, ADIFF, RFP, VIDH, ANEU, CBC #### [place] [address] #### PTH #### [address] [address] Sodium [Moles/Vol] 136 mmol/L Normal 136-145 [facility] Comment on above: Performed By: #### G FR, ADIFF, RFP, VIDH, ANEU, CBC #### [address] [address] #### PTH #### [address] [address] Total Protein 6.7 G/dL Normal 6.4-8.2 [facility] Comment on above: Performed By: #### G FR, ADIFF, RFP, VIDH, ANEU, CBC #### [address] [address] #### PTH #### [address] [address] Urea nitrogen [Mass/Vol] 38 mg/dL High 7-18 [facility] Comment on above: Performed By: #### G FR, ADIFF, RFP, VIDH, ANEU, CBC #### [address] [address] #### PTH #### [address] [address] LIPIDon 01-05-2025 Cholesterol [Mass/Vol] 178 mg/dL Normal 0-200 [facility] Comment on above: Result Comment: Chol esterol Reference Interval: Less than 200 Desirable 200-239 Borderline high risk 240 and above High risk Performed By: #### G FR, ADIFF, RFP, VIDH, ANEU, CBC #### [address] [address] #### PTH #### [address] [address] Cholesterol in HDL [Mass/Vol] 63 mg/dL High 40-60 [facility] Comment on above: Performed By: #### G FR, ADIFF, RFP, VIDH, ANEU, CBC #### [address] [address] #### PTH #### [address] [address] Cholesterol in LDL [Mass/Vol] 93 mg/dL Normal 0-130 [facility] Comment on above: Performed By: #### G FR, ADIFF, RFP, VIDH, ANEU, CBC #### [address] [address] #### PTH #### [address] [address] Triglyceride [Mass/Vol] 111 mg/dL Normal 0-150 [facility] Comment on above: Result Comment: Trig lyceride Reference Interval: Less than 150 Normal 150-199 Borderline high risk 200-499 High risk 500 or higher Very high risk Performed By: #### G FR, ADIFF, RFP, VIDH, ANEU, CBC #### [address] [address] #### PTH #### [address] [address] PTHon 01-05-2025 PTH, Intact 60.0 pg/mL Normal 18.5-88.0 [facility] Comment on above: Performed By: #### G FR, ADIFF, RFP, VIDH, ANEU, CBC #### [address] [address] #### PTH #### [address] [address] RFPon 01-05-2025 Albumin Level 3.6 G/dL Normal 3.4-4.8 [facility] Comment on above: Performed By: #### G FR, ADIFF, RFP, VIDH, ANEU, CBC #### [address] [address] #### PTH #### [place] [address] BUN/Creatinine Ratio 23 ratio Normal 7-27 [facility] Comment on above: Performed By: #### G FR, ADIFF, RFP, VIDH, ANEU, CBC #### [place] [address] #### PTH #### [address] [address] Calcium [Mass/Vol] 9.6 mg/dL Normal 8.4-10.2 [facility] Comment on above: Performed By: #### G FR, ADIFF, RFP, VIDH, ANEU, CBC #### [address] [address] #### PTH #### [address] [address] Chloride [Moles/Vol] 101 mmol/L Normal 98-107 [facility] Comment on above: Performed By: #### G FR, ADIFF, RFP, VIDH, ANEU, CBC #### [address] [address] #### PTH #### [address] [address] CO2 [Moles/Vol] 34 mmol/L High 23-31 [facility] Comment on above: Performed By: #### G FR, ADIFF, RFP, VIDH, ANEU, CBC #### [place] [address] #### PTH #### [address] [address] Creatinine [Mass/Vol] 1.62 mg/dL High 0.70-1.30 [facility] Comment on above: Result Comment: Test ing performed on Siemens Dimension EXL analyzer using a modified kinetic Edel technique. Performed By: #### G FR, ADIFF, RFP, VIDH, ANEU, CBC #### [place] [address] #### PTH #### [address] [address] Electrolyte Balance 0.0 mEq/L Low 4.0-15.0 [facility] Comment on above: Performed By: #### G FR, ADIFF, RFP, VIDH, ANEU, CBC #### [place] [address] #### PTH #### [address] [address] Glucose [Mass/Vol] 94 mg/dL Normal 83-110 [facility] Comment on above: Performed By: #### G FR, ADIFF, RFP, VIDH, ANEU, CBC #### [place] [address] #### PTH #### [address] [address] Phosphate [Mass/Vol] 3.3 mg/dL Normal 2.3-4.1 [facility] Comment on above: Performed By: #### G FR, ADIFF, RFP, VIDH, ANEU, CBC #### [place] [address] #### PTH #### [address] [address] Potassium [Moles/Vol] 4.2 mmol/L Normal 3.5-5.1 [facility] Comment on above: Performed By: #### G FR, ADIFF, RFP, VIDH, ANEU, CBC #### [place] [address] #### PTH #### [address] [address] Sodium [Moles/Vol] 135 mmol/L Low 136-145 [facility] Comment on above: Performed By: #### G FR, ADIFF, RFP, VIDH, ANEU, CBC #### [address] [address] #### PTH #### [address] [address] Urea nitrogen [Mass/Vol] 38 mg/dL High 7-18 [facility] Comment on above: Performed By: #### G FR, ADIFF, RFP, VIDH, ANEU, CBC #### [address] [address] #### PTH #### [address] [address] RPCURon 01-05-2025 U Creatinine 107.3 mg/dL Normal [facility] Comment on above: Performed By: #### G FR, ADIFF, RFP, VIDH, ANEU, CBC #### [address] [address] #### PTH #### [address] [address] U Protein 26 mg/dL Normal [facility] Comment on above: Performed By: #### G FR, ADIFF, RFP, VIDH, ANEU, CBC #### [address] [address] #### PTH #### [address] [address] U Ratio Prot/Creat 0.2 ratio Normal [facility] Comment on above: Performed By: #### G FR, ADIFF, RFP, VIDH, ANEU, CBC #### [address] [address] #### PTH #### [address] [address] TSHon 01-05-2025 TSH Qn 1.24 m[IU]/L Normal 0.36-3.74 [facility] Comment on above: Performed By: #### G FR, ADIFF, RFP, VIDH, ANEU, CBC #### [address] [address] #### PTH #### [address] [address] UAon 01-05-2025 Color (U) Yellow Normal [facility] Comment on above: Performed By: #### G FR, ADIFF, RFP, VIDH, ANEU, CBC #### [address] [address] #### PTH #### [place] [address] Glucose (U) [Mass/Vol] Negative Normal Negative [facility] Comment on above: Performed By: #### G FR, ADIFF, RFP, VIDH, ANEU, CBC #### [place] [address] #### PTH #### [place] [address] Ketones Ql (U) Negative Normal Negative [facility] Comment on above: Performed By: #### G FR, ADIFF, RFP, VIDH, ANEU, CBC #### [address] [address] #### PTH #### [place] [address] UA Appear Clear Normal Clear [facility] Comment on above: Performed By: #### G FR, ADIFF, RFP, VIDH, ANEU, CBC #### [address] [address] #### PTH #### [place] [address] UA Blood Negative Normal Negative [facility] Comment on above: Performed By: #### G FR, ADIFF, RFP, VIDH, ANEU, CBC #### [address] [address] #### PTH #### [place] [address] UA Leuk Est Negative Normal Negative [facility] Comment on above: Performed By: #### G FR, ADIFF, RFP, VIDH, ANEU, CBC #### [place] [address] #### PTH #### [place] [address] UA Nitrite Negative Normal Negative [facility] Comment on above: Performed By: #### G FR, ADIFF, RFP, VIDH, ANEU, CBC #### [place] [address] #### PTH #### [place] [address] UA pH 7.0 Normal 5.0 - 8.0 [facility] Comment on above: Performed By: #### G FR, ADIFF, RFP, VIDH, ANEU, CBC #### [place] [address] #### PTH #### [place] [address] UA Protein Trace Normal Negative [facility] Comment on above: Performed By: #### G FR, ADIFF, RFP, VIDH, ANEU, CBC #### [place] [address] #### PTH #### [place] [address] UA Spec Grav 1.020 Normal 1.015-1.025 [facility] Comment on above: Performed By: #### G FR, ADIFF, RFP, VIDH, ANEU, CBC #### [place] [address] #### PTH #### [place] [address] UA Specimen Type Void Normal [facility] Comment on above: Performed By: #### G FR, ADIFF, RFP, VIDH, ANEU, CBC #### [place] [address] #### PTH #### [place] [address] UA Urobilinogen 0.2 E.U./dL Normal 0.2-1.0 [facility] Comment on above: Performed By: #### G FR, ADIFF, RFP, VIDH, ANEU, CBC #### [address] [address] #### PTH #### [place] [address] Urobilinogen (U) [Mass/Vol] Negative Normal Negative [facility] Comment on above: Performed By: #### G FR, ADIFF, RFP, VIDH, ANEU, CBC #### [place] [address] #### PTH #### [place] [address] VIDHon 01-05-2025 Vit. D 25-Hydroxy 70.0 ng/mL Normal [facility] Comment on above: Result Comment: Inte rpretive Values Based on Total 25(OH) Vitamin D: Deficient <20 ng/mL Insufficient 20 - <30 ng/mL Sufficient 30-100 ng/mL Performed By: #### G FR, ADIFF, RFP, VIDH, ANEU, CBC #### [place] [address] #### PTH #### [place] [address] No Panel Informationon 12-10 Culture Urine 50,000 - 100,000 cfu/ml Multiple bacterial morphotypes present. Probable Contamination. Suggest recollection if clinically indicated. [facility] .Auto Diffon 07-11-2024 Basophil, Absolute 0.0 10 3/mcL Normal 0.0-0.2 [facility] Comment on above: Performed By: #### G FR, ADIFF, RFP, VIDH, ANEU, CBC #### [place] [address] #### PTH #### [place] [address] Basophils/100 WBC (Bld) 0.6 % Normal 0.0-2.5 [facility] Comment on above: Performed By: #### G FR, ADIFF, RFP, VIDH, ANEU, CBC #### [place] [address] #### PTH #### [address] [address] Eosinophil, Absolute 0.2 10 3/mcL Normal 0.0-0.4 [facility] Comment on above: Performed By: #### G FR, ADIFF, RFP, VIDH, ANEU, CBC #### [place] [address] #### PTH #### [address] [address] Eosinophils/100 WBC (Bld) 5.4 % Normal 0.0-7.0 [facility] Comment on above: Performed By: #### G FR, ADIFF, RFP, VIDH, ANEU, CBC #### [place] [address] #### PTH #### [address] [address] Lymphocyte, Absolute 0.8 10 3/mcL Normal 0.8-3.9 [facility] Comment on above: Performed By: #### G FR, ADIFF, RFP, VIDH, ANEU, CBC #### [place] [address] #### PTH #### [address] [address] Lymphocytes/100 WBC (Bld) 20.4 % Normal 10.0-50.0 [facility] Comment on above: Performed By: #### G FR, ADIFF, RFP, VIDH, ANEU, CBC #### [place] [address] #### PTH #### [address] [address] Monocyte, Absolute 0.5 10 3/mcL Normal 0.2-1.0 [facility] Comment on above: Performed By: #### G FR, ADIFF, RFP, VIDH, ANEU, CBC #### [address] [address] #### PTH #### [address] [address] Monocytes/100 WBC (Bld) 12.4 % Normal 1.7-13.0 [facility] Comment on above: Performed By: #### G FR, ADIFF, RFP, VIDH, ANEU, CBC #### [place] [address] #### PTH #### [address] [address] Neutrophils/100 WBC (Bld) 61.2 % Normal 37.0-80.0 [facility] Comment on above: Performed By: #### G FR, ADIFF, RFP, VIDH, ANEU, CBC #### [place] [address] #### PTH #### [place] [address] .GFRon 07-11-2024 GFR 46 ml/min/1.73sqm Normal [facility] Comment on above: Result Comment: GFR Population mean for , Non- Americans Ages 20-29 = 116 mL/min/1.73 sq.m. Ages 30-39 = 107 mL/min/1.73 sq.m. Ages 40-49 = 99 mL/min/1.73 sq.m. Ages 50-59 = 93 mL/min/1.73 sq.m. Ages 60-69 = 85 mL/min/1.73 sq.m. Ages 70+ = 75 mL/min/1.73 sq.m. Chronic Kidney Disease: Less than 60 mL/min/1.73 square meters End Stage Renal Disease: Less than 15 mL/min/1.73 square meters Performed By: #### G FR, ADIFF, RFP, VIDH, ANEU, CBC #### [place] [address] #### PTH #### [place] [address] GFR Non- 38 ml/min/1.73sqm Normal [facility] Comment on above: Result Comment: GFR Population mean for , Non- Americans Ages 20-29 = 116 mL/min/1.73 sq.m. Ages 30-39 = 107 mL/min/1.73 sq.m. Ages 40-49 = 99 mL/min/1.73 sq.m. Ages 50-59 = 93 mL/min/1.73 sq.m. Ages 60-69 = 85 mL/min/1.73 sq.m. Ages 70+ = 75 mL/min/1.73 sq.m. Chronic Kidney Disease: Less than 60 mL/min/1.73 square meters End Stage Renal Disease: Less than 15 mL/min/1.73 square meters Performed By: #### G FR, ADIFF, RFP, VIDH, ANEU, CBC #### [place] [address] #### PTH #### [place] [address] .NEUABSon 07-11-2024 Neutrophil, Absolute 2.4 10 3/mcL Low 2.9-6.2 [facility] Comment on above: Performed By: #### G FR, ADIFF, RFP, VIDH, ANEU, CBC #### [place] [address] #### PTH #### [place] [address] CBCon 07-11-2024 Erythrocyte distribution width (RBC) [Ratio] 14.1 % Normal 11.5-14.5 [facility] Comment on above: Performed By: #### G FR, ADIFF, RFP, VIDH, ANEU, CBC #### [place] [address] #### PTH #### [place] [address] Hematocrit (Bld) [Volume fraction] 37.7 % Low 42.0-52.0 [facility] Comment on above: Performed By: #### G FR, ADIFF, RFP, VIDH, ANEU, CBC #### [place] [address] #### PTH #### [place] [address] Hgb 13.0 G/dL Low 14.0-18.0 [facility] Comment on above: Performed By: #### G FR, ADIFF, RFP, VIDH, ANEU, CBC #### [place] [address] #### PTH #### [place] [address] MCH (RBC) [Entitic mass] 32.7 pg High 27.0-31.2 [facility] Comment on above: Performed By: #### G FR, ADIFF, RFP, VIDH, ANEU, CBC #### [place] [address] #### PTH #### [place] [address] MCHC 34.6 G/dL Normal 31.8-35.4 [facility] Comment on above: Performed By: #### G FR, ADIFF, RFP, VIDH, ANEU, CBC #### [place] [address] #### PTH #### [place] [address] MCV (RBC) [Entitic vol] 94.4 fL High 80.0-94.0 [facility] Comment on above: Performed By: #### G FR, ADIFF, RFP, VIDH, ANEU, CBC #### [place] [address] #### PTH #### [place] [address] Platelet 114 10 3/mcL Low 130-400 [facility] Comment on above: Performed By: #### G FR, ADIFF, RFP, VIDH, ANEU, CBC #### [place] [address] #### PTH #### [place] [address] Platelet mean volume (Bld) [Entitic vol] 8.2 fL Normal 7.4-10.4 [facility] Comment on above: Performed By: #### G FR, ADIFF, RFP, VIDH, ANEU, CBC #### [address] [address] #### PTH #### [place] [address] RBC 3.99 10 6/mcL Low 4.04-6.13 [facility] Comment on above: Performed By: #### G FR, ADIFF, RFP, VIDH, ANEU, CBC #### [place] [address] #### PTH #### [place] [address] WBC 4.0 10 3/mcL Low 4.6-10.8 [facility] Comment on above: Performed By: #### G FR, ADIFF, RFP, VIDH, ANEU, CBC #### [place] [address] #### PTH #### [place] [address] LABORATORYOrdered By: Kristyn Richardson on 07-11-2024 Appearance (U) Clear (07/11/24 9:26 AM) Normal Clear AO Auto Urine SS Bilirubin Ql (U) Negative (07/11/24 9:26 AM) Normal Negative AO Auto Urine SS Color (U) Yellow (07/11/24 9:26 AM) Normal AO Auto Urine SS Glucose Test strip (U) [Mass/Vol] Negative Normal Negative AO Auto Urine SS Hemoglobin Auto test strip (U) [Mass/Vol] Negative (07/11/24 9:26 AM) Normal Negative AO Auto Urine SS Ketones Ql (U) Negative Normal Negative AO Auto Ur ine SS UA Leuk Est Negative (07/11/24 9:26 AM) Normal Negative AO Auto Urine SS UA Nitrite Negative (07/11/24 9:26 AM) Normal Negative AO Auto Urine SS UA pH 6.0 (07/11/24 9:26 AM) Normal 5.0 - 8.0 AO Auto Urine SS UA Protein Negative Normal Negative AO Auto Urine SS UA Spec Grav 1.025 (07/11/24 9:26 AM) Normal 1.015-1.025 AO Auto Urine SS UA Specimen Type Clean Catch (07/11/24 9:26 AM) Normal AO Auto Urine SS UA Urobilinogen 0.2 E.U./dL Normal 0.2-1.0 AO Auto Urine SS LABORATORYOrdered By: Dina Silva on 07-11-2024 Creatinine (U) [Mass/Vol] 113.4 mg/dL Normal 39.0 - 259.0 mg/dL AO ADM SS Protein (U) [Mass/Vol] 24 mg/dL High 0 - 11 mg/dL AO ADM SS U Ratio Prot/Creat 0.21 ratio Invalid Interpretation Code AO ADM SS LABORATORYOrdered By: [employer] on 07-11-2024 25-hydroxyvitamin D3 [Mass/Vol] 69.9 ng/mL Invalid Interpretation Code AO ADM SS Comment on above: Interpretive Data: I nterpretive Values Based on Total 25(OH) Vitamin D: Deficient <20 ng/mL Insufficient 20 - <30 ng/mL Sufficient 30-100 ng/mL Albumin BCP dye [Mass/Vol] 3.3 G/dL Low 3.4 - 4.8 G/dL AO ADM SS Basophils (Bld) [#/Vol] 0.0 103/mcL Normal 0.0 - 0.2 10^3/mcL AO Workflow SS Basophils/100 WBC (Bld) 0.6 % Normal 0.0 - 2.5 % AO Workflow SS Calcium [Mass/Vol] 9.2 mg/dL Normal 8.4 - 10. 2 mg/dL AO ADM SS Chloride [Moles/Vol] 102 mmol/L Normal 98 - 10 7 mmol/L AO ADM SS CO2 [Moles/Vol] 34 mmol/L High 23 - 31 mmol/L AO ADM SS Creatinine [Mass/Vol] 1.73 mg/dL High 0.70 - 1.30 mg/dL AO ADM SS Comment on above: Interpretive Data: T esting performed on Siemens Dimension EXL analyzer using a modified kinetic Edel technique. Electrolyte Balance -1.0 mEq/L Low 4.0 - 15 .0 mEq/L AO ADM SS Eosinophil, Absolute 0.2 103/mcL Normal 0.0 - 0 .4 10^3/mcL AO Workflow SS Eosinophils/100 WBC (Bld) 5.4 % Normal 0.0 - 7.0 % AO Workflow SS Erythrocyte distribution width (RBC) [Ratio] 14.1 % Normal 11.5 - 14.5 % AO Workflow SS GFR/1.73 sq M.predicted among blacks MDRD (S/P/Bld) [Vol rate/Area] 46 ml/min/1.73sqm Invalid Interpretation Code AO Chemistry S Comment on above: Interpretive Data: GFR Population mean for , Non- Americans Ages 20-29 = 116 mL/min/1.73 sq.m. Ages 30-39 = 107 mL/min/1.73 sq.m. Ages 40-49 = 99 mL/min/1.73 sq.m. Ages 50-59 = 93 mL/min/1.73 sq.m. Ages 60-69 = 85 mL/min/1.73 sq.m. Ages 70+ = 75 mL/min/1.73 sq.m. Chronic Kidney Disease: Less than 60 mL/min/1.73 square meters End Stage Renal Disease: Less than 15 mL/min/1.73 square meters GFR/1.73 sq M.predicted among non-blacks MDRD (S/P/Bld) [Vol rate/Area] 38 ml/min/1.73sqm Invalid Interpretation Code AO Chemistry S Comment on above: Interpretive Data: GFR Population mean for , Non- Americans Ages 20-29 = 116 mL/min/1.73 sq.m. Ages 30-39 = 107 mL/min/1.73 sq.m. Ages 40-49 = 99 mL/min/1.73 sq.m. Ages 50-59 = 93 mL/min/1.73 sq.m. Ages 60-69 = 85 mL/min/1.73 sq.m. Ages 70+ = 75 mL/min/1.73 sq.m. Chronic Kidney Disease: Less than 60 mL/min/1.73 square meters End Stage Renal Disease: Less than 15 mL/min/1.73 square meters Glucose [Mass/Vol] 103 mg/dL Normal 83 - 110 mg/dL AO ADM SS Hematocrit (Bld) [Volume fraction] 37.7 % Low 42.0 - 52.0 % AO Workflow SS Hemoglobin (Bld) [Mass/Vol] 13.0 G/dL Low 14.0 - 18.0 G/dL AO Workflow SS Lymphocytes (Bld) [#/Vol] 0.8 103/mcL Normal 0.8 - 3.9 10^3/mcL AO Workflow SS Lymphocytes/100 WBC (Bld) 20.4 % Normal 10.0 - 50.0 % AO Workflow SS MCH (RBC) [Entitic mass] 32.7 pg High 27.0 - 31.2 pg AO Workflow SS MCHC 34.6 G/dL Normal 31.8 - 35.4 G/dL AO Workflow SS MCV (RBC) [Entitic vol] 94.4 fL High 80.0 - 94.0 fL AO Workflow SS Monocytes (Bld) [#/Vol] 0.5 103/mcL Normal 0.2 - 1.0 10^3/mcL AO Workflow SS Monocytes/100 WBC (Bld) 12.4 % Normal 1.7 - 13.0 % AO Workflow SS Neutrophils (Bld) [#/Vol] 2.4 103/mcL Low 2.9 - 6.2 10^3/mcL AO Workflow SS Neutrophils/100 WBC (Bld) 61.2 % Normal 37.0 - 80.0 % AO Workflow SS Parathyrin.intact [Mass/Vol] 71.7 pg/mL Normal 18.5 - 88.0 pg/mL AH ADM SS Phosphate [Mass/Vol] 3.6 mg/dL Normal 2.3 - 4 .1 mg/dL AO ADM SS Platelet mean volume (Bld) [Entitic vol] 8.2 fL Normal 7.4 - 10.4 fL AO Workflow SS Platelets (Bld) [#/Vol] 114 103/mcL Low 130 - 400 10^3/mcL AO Workflow SS Potassium [Moles/Vol] 3.7 mmol/L Normal 3.5 - 5.1 mmol/L AO ADM SS RBC (Bld) [#/Vol] 3.99 106/mcL Low 4.04 - 6.1 3 10^6/mcL AO Workflow SS Sodium [Moles/Vol] 135 mmol/L Low 136 - 145 mmol/L AO ADM SS Urea nitrogen [Mass/Vol] 43 mg/dL High 7 - 18 mg/dL AO ADM SS Urea nitrogen/Creatinine [Mass ratio] 25 ratio Normal 7 - 27 ratio AO ADM SS WBC (Bld) [#/Vol] 4.0 103/mcL Low 4.6 - 10.8 10^3/mcL AO Workflow SS PTHon 07-11-2024 PTH, Intact 71.7 pg/mL Normal 18.5-88.0 [facility] Comment on above: Performed By: #### G FR, ADIFF, RFP, VIDH, ANEU, CBC #### [address] [address] #### PTH #### [address] [address] RFPon 07-11-2024 Albumin Level 3.3 G/dL Low 3.4-4.8 [facility] Comment on above: Performed By: #### G FR, ADIFF, RFP, VIDH, ANEU, CBC #### [place] [address] #### PTH #### [place] [address] BUN/Creatinine Ratio 25 ratio Normal 7- [facility] Comment on above: Performed By: #### G FR, ADIFF, RFP, VIDH, ANEU, CBC #### [place] [address] #### PTH #### [address] [address] Calcium [Mass/Vol] 9.2 mg/dL Normal 8.4-10.2 [facility] Comment on above: Performed By: #### G FR, ADIFF, RFP, VIDH, ANEU, CBC #### [place] [address] #### PTH #### [place] [id number] Chloride [Moles/Vol] 102 mmol/L Normal 98-107 [facility] Comment on above: Performed By: #### G FR, ADIFF, RFP, VIDH, ANEU, CBC #### [place] [address] #### PTH #### [address] [address] CO2 [Moles/Vol] 34 mmol/L High 23-31 [facility] Comment on above: Performed By: #### G FR, ADIFF, RFP, VIDH, ANEU, CBC #### [address] [address] #### PTH #### [address] [address] Creatinine [Mass/Vol] 1.73 mg/dL High 0.70-1.30 [facility] Comment on above: Result Comment: Test ing performed on Siemens Dimension EXL analyzer using a modified kinetic Edel technique. Performed By: #### G FR, ADIFF, RFP, VIDH, ANEU, CBC #### [address] [address] #### PTH #### [address] [address] Electrolyte Balance -1.0 mEq/L Low 4.0-15.0 [facility] Comment on above: Performed By: #### G FR, ADIFF, RFP, VIDH, ANEU, CBC #### [address] [address] #### PTH #### [address] [address] Glucose [Mass/Vol] 103 mg/dL Normal 83-110 [facility] Comment on above: Performed By: #### G FR, ADIFF, RFP, VIDH, ANEU, CBC #### [address] [address] #### PTH #### [address] [address] Phosphate [Mass/Vol] 3.6 mg/dL Normal 2.3-4.1 [facility] Comment on above: Performed By: #### G FR, ADIFF, RFP, VIDH, ANEU, CBC #### [address] [address] #### PTH #### [address] [address] Potassium [Moles/Vol] 3.7 mmol/L Normal 3.5-5.1 [facility] Comment on above: Performed By: #### G FR, ADIFF, RFP, VIDH, ANEU, CBC #### [address] [address] #### PTH #### [address] [address] Sodium [Moles/Vol] 135 mmol/L Low 136-145 [facility] Comment on above: Performed By: #### G FR, ADIFF, RFP, VIDH, ANEU, CBC #### [address] [address] #### PTH #### [address] [address] Urea nitrogen [Mass/Vol] 43 mg/dL High 7-18 [facility] Comment on above: Performed By: #### G FR, ADIFF, RFP, VIDH, ANEU, CBC #### [address] [address] #### PTH #### [address] [address] RPCURon 07-11-2024 U Creatinine 113.4 mg/dL Normal 39.0-259.0 [facility] Comment on above: Performed By: #### U A, RPCUR #### [address] [address] U Protein 24 mg/dL High 0-11 [facility] Comment on above: Performed By: #### U A, RPCUR #### [address] [address] U Ratio Prot/Creat 0.21 ratio Normal [facility] Comment on above: Result Comment: resu lt calculated by rule [id number] (U Protein/U Creatinine) Performed By: #### U A, RPCUR #### [address] [address] UAon 07-11-2024 Color (U) Yellow Normal [facility] Comment on above: Performed By: #### U A, RPCUR #### [place] [address] Glucose (U) [Mass/Vol] Negative Normal Negative [facility] Comment on above: Performed By: #### U A, RPCUR #### [place] [address] Ketones Ql (U) Negative Normal Negative [facility] Comment on above: Performed By: #### U A, RPCUR #### [place] [address] UA Appear Clear Normal Clear [facility] Comment on above: Performed By: #### U A, RPCUR #### [place] [address] UA Blood Negative Normal Negative [facility] Comment on above: Performed By: #### U A, RPCUR #### [place] [address] UA Leuk Est Negative Normal Negative [facility] Comment on above: Performed By: #### U A, RPCUR #### [place] [address] UA Nitrite Negative Normal Negative [facility] Comment on above: Performed By: #### U A, RPCUR #### [place] [address] UA pH 6.0 Normal 5.0 - 8.0 [facility] Comment on above: Performed By: #### U A, RPCUR #### [place] [address] UA Protein Negative Normal Negative [facility] Comment on above: Performed By: #### U A, RPCUR #### [place] [address] UA Spec Grav 1.025 Normal 1.015-1.025 [facility] Comment on above: Performed By: #### U A, RPCUR #### [address] [address] UA Specimen Type Clean Catch Normal [facility] Comment on above: Performed By: #### U A, RPCUR #### [address] [address] UA Urobilinogen 0.2 E.U./dL Normal 0.2-1.0 [facility] Comment on above: Performed By: #### U A, RPCUR #### [place] [id number] Urobilinogen (U) [Mass/Vol] Negative Normal Negative [facility] Comment on above: Performed By: #### U A, RPCUR #### [address] [address] VIDHon 07-11-2024 Vit. D 25-Hydroxy 69.9 ng/mL Normal [facility] Comment on above: Result Comment: Inte rpretive Values Based on Total 25(OH) Vitamin D: Deficient <20 ng/mL Insufficient 20 - <30 ng/mL Sufficient 30-100 ng/mL Performed By: #### G FR, ADIFF, RFP, VIDH, ANEU, CBC #### [place] [address] #### PTH #### [address] [address] Basic metabolic 2000 panelon 04-14-2024 Anion gap [Moles/Vol] 12 mmol/L Normal 8-15 [facility] Comment on above: Order Comment: Speci men Type: BLOOD SPECIMEN Ordering Facility: [facility] Address: [address] [place] [address] Performed By: #### 2 4321-2 #### [facility] CLIA [id number] [address] [place] [address] [place] Calcium [Mass/Vol] 9.5 mg/dL Normal 8.5-10.2 [facility] Comment on above: Order Comment: Speci men Type: BLOOD SPECIMEN Ordering Facility: [facility] Address: [address] [place] [address] Performed By: #### 2 4321-2 #### [facility] CLIA [id number] [address] [place] [address] [place] Chloride [Moles/Vol] 100 mmol/L Normal 98-107 [facility] Comment on above: Order Comment: Speci men Type: BLOOD SPECIMEN Ordering Facility: [facility] Address: [address] [place] [address] Performed By: #### 2 4321-2 #### [facility] CLIA [id number] [address] [place] [address] [place] CO2 [Moles/Vol] 29 mmol/L Normal 22-30 [facility] Comment on above: Order Comment: Speci men Type: BLOOD SPECIMEN Ordering Facility: [facility] Address: [address] [place] [address] Performed By: #### 2 4321-2 #### [facility] CLIA [id number] [address] [place] [address] [place] Creatinine [Mass/Vol] 1.52 mg/dL High 0.73-1.22 [facility] Comment on above: Order Comment: Speci men Type: BLOOD SPECIMEN Ordering Facility: [facility] Address: [address] [place] [address] Performed By: #### 2 4321-2 #### [facility] CLIA [id number] [address] [place] [address] [place] Creatinine and Glomerular filtration rate.predicted panel (S/P/Bld) 45 mL/min/1.73m??? Low >=60 [facility] Comment on above: Order Comment: Speci men Type: BLOOD SPECIMEN Ordering Facility: [facility] Address: [address] [place], [place] [id number] Result Comment: Chantale mated Glomerular Filtration Rate (eGFR) is calculated using the 2020 CKD-EPI creatinine equation. This equation utilizes serum creatinine, sex, and age as parameters. The creatinine assay has traceable calibration to isotope dilution-mass spectrometry. Refer to KDIGO guidelines for clinical interpretation. In patients with unstable renal function, e.g. those with acute kidney injury, the eGFR may not accurately reflect actual GFR. Performed By: #### 2 4321-2 #### [facility] CLIA [id number] [address] [place] [address] [place] Glucose [Mass/Vol] 96 mg/dL Normal 74-99 [facility] Comment on above: Order Comment: Azeb kelley Type: BLOOD SPECIMEN Ordering Facility: [facility] Address: [address] [place], [place] [id number] Result Comment: The [place] Diabetes [employer] (ADA) provides guidance for cutoff values for fasting glucose and random glucose. The ADA defines fasting as no caloric intake for at least 8 hours. Fasting plasma glucose results between 100 to 125 mg/dL indicate increased risk for diabetes (prediabetes). Fasting plasma glucose results greater than or equal to 126 mg/dL meet the criteria for diagnosis of diabetes. In the absence of unequivocal hyperglycemia, results should be confirmed by repeat testing. In a patient with classic symptoms of hyperglycemia or hyperglycemic crisis, random plasma glucose results greater than or equal to 200 mg/dL meet the criteria for diagnosis of diabetes. Reference: Standards of Medical Care in Diabetes 2016, [place] [employer]. Diabetes Care. 2016.39(Suppl 1). Performed By: #### 2 4321-2 #### [facility] CLIA [id number] [address] [place] [address] [place] Potassium [Moles/Vol] 3.6 mmol/L Low 3.7-5.1 [facility] Comment on above: Order Comment: Azeb kelley Type: BLOOD SPECIMEN Ordering Facility: [facility] Address: [address] [place] [address] Performed By: #### 2 4321-2 #### [facility] CLIA [id number] [address] [place] [address] [place] Sodium [Moles/Vol] 141 mmol/L Normal 136-144 [facility] Comment on above: Order Comment: Speci men Type: BLOOD SPECIMEN Ordering Facility: [facility] Address: [address] [place] [place] [id number] Performed By: #### 2 4321-2 #### [facility] CLIA [id number] [address] [place] [address] Urea nitrogen [Mass/Vol] 38 mg/dL High 9-24 [facility] Comment on above: Order Comment: Azeb men Type: BLOOD SPECIMEN Ordering Facility: [facility] Address: [address] [place] [place] [id number] Performed By: #### 2 4321-2 #### [facility] CLIA [id number] [address] [place] [address] CNPNon 04-14-2024 CNPN Telephone (HEMAWS) CORAL BUSH ([id number]) 1940 M Date Time Provider Department 04/14/24 JEFFRY ARREDONDO During your visit today, we recorded the following information about you: Suzi Fuller LPN 04/14/2024 12:58 PM Signed ----- Message from Jeffry Arredondo DO sent at 04/14/2024 12:55 PM EDT ----- Can let him know kidney function is stable compared to a month ago and much better than it was when I saw him for office visit on February 18. Continue to hydrate well and follow-up as scheduled. Suzi Fuller LPN 04/14/2024 12:59 PM Signed Message left for patient to contact office. DARÍO Hartman Brandy 04/15/2024 10:09 AM Addendum Patient called back and was relayed the below information and stated understanding. Shiloh Belles Pss Allergies As of Date: 04/14/2024 Noted Allergy Reaction CIPROFLOXACIN 10/22/2019 9 - Itching Date Reviewed: 02/19/2024 Reviewed by: Ozzie Ware MA - Fully Assessed Reason for Visit: Results [95] Prescriptions as of 04/15/2024 - simvastatin (ZOCOR) 10 mg tablet Take 10 mg by mouth daily at bedtime. - chlorthalidone (HYGROTON) 25 mg tablet Take 12.5 mg by mouth once daily. - vit C/E/Zn/coppr/lutein/ze axan (PRESERVISION AREDS-2 ORAL) Take 1 tablet by mouth twice daily. - SAW PALMETTO ORAL 2 capsules once daily. - fluticasone (FLOVENT) 220 mcg/actuation inhaler 1 Puff twice daily. - omega 4-lpw-jsk-fish oil (FISH OIL) 300-1,000 mg cpDR 1 capsule once daily. - metoprolol tartrate, short acting, (LOPRESSOR) 100 mg tablet Take 100 mg by mouth twice daily. - lisinopril (ZESTRIL, PRINIVIL) 40 mg tablet Take 60 mg by mouth once daily. - doxazosin (CARDURA) 4 mg tablet Take 4 mg by mouth daily at bedtime. - cholecalciferol (VITAMIN D-3) 2,000 unit tablet Take 2,000 Units by mouth once daily. 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 Ages 30-39 = 107 mL/min/1.73 sq.m. Ages 40-49 = 99 mL/min/1.73 sq.m. Ages 50-59 = 93 mL/min/1.73 sq.m. Ages 60-69 = 85 mL/min/1.73 sq.m. Ages 70+ = 75 mL/min/1.73 sq.m. Chronic Kidney Disease: Less than 60 mL/min/1.73 square meters End Stage Renal Disease: Less than 15 mL/min/1.73 square meters Performed By: #### C ARAMIS, BENNETT, LARISSA, ANEU, RFP, GFR #### [address] [address] #### PTH #### [address] [address] GFR Non- 42 ml/min/1.73sqm Normal [facility] ([place]) Comment on above: Result Comment: GFR Population mean for , Non- Americans Ages 20-29 = 116 mL/min/1.73 sq.m. Ages 30-39 = 107 mL/min/1.73 sq.m. Ages 40-49 = 99 mL/min/1.73 sq.m. Ages 50-59 = 93 mL/min/1.73 sq.m. Ages 60-69 = 85 mL/min/1.73 sq.m. Ages 70+ = 75 mL/min/1.73 sq.m. Chronic Kidney Disease: Less than 60 mL/min/1.73 square meters End Stage Renal Disease: Less than 15 mL/min/1.73 square meters Performed By: #### C ARAMIS, BENNETT, LARISSA, ANEU, RFP, GFR #### [address] [address] #### PTH #### [address] [address] BMPon 02-21-2024 BUN/Creatinine Ratio 28 ratio High 7-27 [facility] Comment on above: Performed By: #### R PCUR, UA #### [address] [address] Calcium [Mass/Vol] 9.0 mg/dL Normal 8.4-10.2 [facility] ([place]) Comment on above: Performed By: #### R PCUR, UA #### [address] [address] Chloride [Moles/Vol] 100 mmol/L Normal 98-107 [facility] [place] Comment on above: Performed By: #### R PCUR, UA #### [address] [address] CO2 [Moles/Vol] 31 mmol/L Normal 23-31 [facility] ([place]) Comment on above: Performed By: #### R PCUR, UA #### [address] [address] Creatinine [Mass/Vol] 1.57 mg/dL High 0.70-1.30 [facility] ([place]) Comment on above: Performed By: #### R PCUR, UA #### [address] [address] Electrolyte Balance 7.0 mEq/L Normal 4.0-15.0 [facility] ([place]) Comment on above: Performed By: #### R PCUR, UA #### [address] [address] Glucose [Mass/Vol] 93 mg/dL Normal 83-110 [facility] ([place]) Comment on above: Performed By: #### R PCUR, UA #### [address] [address] Potassium [Moles/Vol] 3.5 mmol/L Normal 3.5-5.1 [facility] ([place]) Comment on above: Performed By: #### R PCUR, UA #### [address] [address] Sodium [Moles/Vol] 138 mmol/L Normal 136-145 [facility] ([place]) Comment on above: Performed By: #### R PCUR, UA #### [address] [address] Urea nitrogen [Mass/Vol] 44 mg/dL High 7-18 [facility] ([place]) Comment on above: Performed By: #### R PCUR, UA #### [address] [address] LABORATORYOrdered By: SYSTEM SYSTEM on 02-21-2024 Calcium [Mass/Vol] 9.0 mg/dL Normal 8.4 - 10. 2 mg/dL AO ADM SS Chloride [Moles/Vol] 100 mmol/L Normal 98 - 10 7 mmol/L AO ADM SS CO2 [Moles/Vol] 31 mmol/L Normal 23 - 31 mmol/L AO ADM SS Creatinine [Mass/Vol] 1.57 mg/dL High 0.70 - 1.30 mg/dL AO ADM SS Electrolyte Balance 7.0 mEq/L Normal 4.0 - 15 .0 mEq/L AO ADM SS GFR/1.73 sq M.predicted among blacks MDRD (S/P/Bld) [Vol rate/Area] 51 ml/min/1.73sqm Invalid Interpretation Code AO Chemistry S Comment on above: Interpretive Data: GFR Population mean for , Non- Americans Ages 20-29 = 116 mL/min/1.73 sq.m. Ages 30-39 = 107 mL/min/1.73 sq.m. Ages 40-49 = 99 mL/min/1.73 sq.m. Ages 50-59 = 93 mL/min/1.73 sq.m. Ages 60-69 = 85 mL/min/1.73 sq.m. Ages 70+ = 75 mL/min/1.73 sq.m. Chronic Kidney Disease: Less than 60 mL/min/1.73 square meters End Stage Renal Disease: Less than 15 mL/min/1.73 square meters GFR/1.73 sq M.predicted among non-blacks MDRD (S/P/Bld) [Vol rate/Area] 42 ml/min/1.73sqm Invalid Interpretation Code AO Chemistry S Comment on above: Interpretive Data: GFR Population mean for , Non- Americans Ages 20-29 = 116 mL/min/1.73 sq.m. Ages 30-39 = 107 mL/min/1.73 sq.m. Ages 40-49 = 99 mL/min/1.73 sq.m. Ages 50-59 = 93 mL/min/1.73 sq.m. Ages 60-69 = 85 mL/min/1.73 sq.m. Ages 70+ = 75 mL/min/1.73 sq.m. Chronic Kidney Disease: Less than 60 mL/min/1.73 square meters End Stage Renal Disease: Less than 15 mL/min/1.73 square meters Glucose [Mass/Vol] 93 mg/dL Normal 83 - 110 mg/dL AO ADM SS Potassium [Moles/Vol] 3.5 mmol/L Normal 3.5 - 5.1 mmol/L AO ADM SS Sodium [Moles/Vol] 138 mmol/L Normal 136 - 145 mmol/L AO ADM SS Urea nitrogen [Mass/Vol] 44 mg/dL High 7 - 18 mg/dL AO ADM SS Urea nitrogen/Creatinine [Mass ratio] 28 ratio High 7 - 27 ratio AO ADM SS Cobalamin (Vitamin B12) [Mas s/Vol]on 02-20-2024 Interpretation and review of laboratory results Normal [facility] VITAMIN B12on 02-20-2024 Cobalamin (Vitamin B12) [Mass/Vol] 450 pg/mL 232 - 1245 pg/mL [facility] .Auto Diffon 02-05-2024 Basophil, Absolute 0.0 10 3/mcL Normal 0.0-0.2 [facility] [place] Comment on above: Performed By: #### YARIEL GORMAN #### [address] [address] Basophils/100 WBC (Bld) 0.6 % Normal 0.0-2.5 [facility] ([place]) Comment on above: Performed By: #### YARIEL GORMAN #### [address] [address] Eosinophil, Absolute 0.2 10 3/mcL Normal 0.0-0.4 [facility] ([place]) Comment on above: Performed By: #### Marimar PEREYRA UA #### [address] [address] Eosinophils/100 WBC (Bld) 4.4 % Normal 0.0-7.0 [facility] ([place]) Comment on above: Performed By: #### Marimar PEREYRA UA #### [address] [address] Lymphocyte, Absolute 0.8 10 3/mcL Normal 0.8-3.9 [facility] ([place]) Comment on above: Performed By: #### YARIEL GORMAN #### [address] [address] Lymphocytes/100 WBC (Bld) 22.2 % Normal 10.0-50.0 [facility] ([place]) Comment on above: Performed By: #### YARIEL GORMAN #### [address] [address] Monocyte, Absolute 0.4 10 3/mcL Normal 0.2-1.0 [facility] Comment on above: Performed By: #### Marimar PEREYRA UA #### [address] [address] Monocytes/100 WBC (Bld) 10.9 % Normal 1.7-13.0 [facility] ([place]) Comment on above: Performed By: #### Marimar PEREYRA UA #### [address] [address] Neutrophils/100 WBC (Bld) 61.9 % Normal 37.0-80.0 [facility] ([place]) Comment on above: Performed By: #### Marimar PEREYRA UA #### [address] [address] .NEUABSon 02-05-2024 Neutrophil, Absolute 2.2 10 3/mcL Low 2.9-6.2 [facility] ([place]) Comment on above: Performed By: #### YARIEL GORMAN #### [address] [address] CBCon 02-05-2024 Erythrocyte distribution width (RBC) [Ratio] 13.8 % Normal 11.5-14.5 [facility] ([place]) Comment on above: Performed By: #### C BC, ADIFF, ANEU, LIPID #### [address] [address] #### HCV1 #### [address] [address] Hematocrit (Bld) [Volume fraction] 39.5 % Low 42.0-52.0 [facility] ([place]) Comment on above: Performed By: #### C BC, ADIFF, ANEU, LIPID #### [address] [address] #### HCV1 #### [address] [address] Hgb 13.8 G/dL Low 14.0-18.0 [facility] ([place]) Comment on above: Performed By: #### C BC, ADIFF, ANEU, LIPID #### [place] [address] #### HCV1 #### [place] [address] MCH (RBC) [Entitic mass] 32.7 pg High 27.0-31.2 [facility] ([place]) Comment on above: Performed By: #### C BC, ADSARAY, ANEU, LIPID #### [place] [address] #### HCV1 #### [place] [address] MCHC 35.1 G/dL Normal 31.8-35.4 [facility] ([place]) Comment on above: Performed By: #### C BC, ADIFF, ANEU, LIPID #### [place] [address] #### HCV1 #### [place] [address] MCV (RBC) [Entitic vol] 93.3 fL Normal 80.0-94.0 [facility] ([place]) Comment on above: Performed By: #### C BC, ADIFF, ANEU, LIPID #### [place] [address] #### HCV1 #### [place] [address] Platelet 113 10 3/mcL Low 130-400 [facility] ([place]) Comment on above: Performed By: #### C BC, ADIFF, ANEU, LIPID #### [place] [address] #### HCV1 #### [place] [address] Platelet mean volume (Bld) [Entitic vol] 9.0 fL Normal 7.4-10.4 [facility] ([place]) Comment on above: Performed By: #### C BC, ADIFF, ANEU, LIPID #### [place] [address] #### HCV1 #### [address] [address] RBC 4.23 10 6/mcL Normal 4.04-6.13 [facility] ([place]) Comment on above: Performed By: #### C BC, ADIFF, ANEU, LIPID #### [place] [address] #### HCV1 #### [place] [address] WBC 3.6 10 3/mcL Low 4.6-10.8 [facility] ([place]) Comment on above: Performed By: #### C BC, ADIFF, ANEU, LIPID #### [place] [address] #### HCV1 #### [place] [address] HCVon 02-05-2024 Hep C Ab Non-Reactive Normal Non-Reactive [facility] ([place]) Comment on above: Performed By: #### Marimar PEREYRA UA #### [place] [id number] Hep C Ab Int Normal [facility] ([place]) Comment on above: Result Comment: Nonr eactive: Samples with a value < 0.80 are considered nonreactive (negative) for antibodies to HCV. A negative test result does not exclude the possibility of exposure to or infection with HCV. HCV antibodies may be undetectable in some stages of the infection and in some clinical conditions. See Interp Performed By: #### Marimar PEREYRA UA #### [place] [id number] LABORATORYOrdered By: SYSTEM SYSTEM on 02-05-2024 Basophil, Absolute 0.0 103/mcL Normal 0.0 - 0.2 10^3/mcL AO Workflow SS Basophils/100 WBC (Bld) 0.6 % Normal 0.0 - 2.5 % AO Workflow SS Eosinophil, Absolute 0.2 103/mcL Normal 0.0 - 0 .4 10^3/mcL AO Workflow SS Eosinophils/100 WBC (Bld) 4.4 % Normal 0.0 - 7.0 % AO Workflow SS Erythrocyte distribution width (RBC) [Ratio] 13.8 % Normal 11.5 - 14.5 % AO Workflow SS Hematocrit (Bld) [Volume fraction] 39.5 % Low 42.0 - 52.0 % AO Workflow SS Hemoglobin (Bld) [Mass/Vol] 13.8 G/dL Low 14.0 - 18.0 G/dL AO Workflow SS Lymphocyte, Absolute 0.8 103/mcL Normal 0.8 - 3 .9 10^3/mcL AO Workflow SS Lymphocytes/100 WBC (Bld) 22.2 % Normal 10.0 - 50.0 % AO Workflow SS MCH (RBC) [Entitic mass] 32.7 pg High 27.0 - 31.2 pg AO Workflow SS MCHC 35.1 G/dL Normal 31.8 - 35.4 G/dL AO Workflow SS MCV (RBC) [Entitic vol] 93.3 fL Normal 80.0 - 94.0 fL AO Workflow SS Monocyte, Absolute 0.4 103/mcL Normal 0.2 - 1.0 10^3/mcL AO Workflow SS Monocytes/100 WBC (Bld) 10.9 % Normal 1.7 - 13.0 % AO Workflow SS Neutrophil, Absolute 2.2 103/mcL Low 2.9 - 6 .2 10^3/mcL AO Workflow SS Neutrophils/100 WBC (Bld) 61.9 % Normal 37.0 - 80.0 % AO Workflow SS Platelet mean volume (Bld) [Entitic vol] 9.0 fL Normal 7.4 - 10.4 fL AO Workflow SS Platelets (Bld) [#/Vol] 113 103/mcL Low 130 - 400 10^3/mcL AO Workflow SS RBC (Bld) [#/Vol] 4.23 106/mcL Normal 4.04 - 6.1 3 10^6/mcL AO Workflow SS WBC (Bld) [#/Vol] 3.6 103/mcL Low 4.6 - 10.8 10^3/mcL AO Workflow SS LABORATORYOrdered By: Sherrell Conrad on 02-05-2024 Cholesterol [Mass/Vol] 173 mg/dL Normal 0 - 200 mg/dL AO ADM SS Comment on above: Interpretive Data: C holesterol Reference Interval: Less than 200 Desirable 200-239 Borderline high risk 240 and above High risk Cholesterol in HDL [Mass/Vol] 62 mg/dL High 40 - 60 mg/dL AO ADM SS Cholesterol in LDL [Mass/Vol] 100 mg/dL Normal 0 - 130 mg/dL AO ADM SS Triglyceride [Mass/Vol] 56 mg/dL Normal 0 - 150 mg/dL AO ADM SS Comment on above: Interpretive Data: T riglyceride Reference Interval: Less than 150 Normal 150-199 Borderline high risk 200-499 High risk 500 or higher Very high risk LABORATORYOrdered By: Buffy Salas on 02-05-2024 HCV Ab IA Ql Non-Reactive (02/05/24 11:25 AM) Normal Non-Reactive AH ADM SS HCV Ab IA Ql Nonreactive: Samples with a value < 0.80 are considered nonreactive (negative) for antibodies to HCV.A negative test result does not exclude the possibility of exposure to or infection with HCV. HCV antibodies may be undetectable in some stages of the infection and in some clinical conditions. Invalid Interpretation Code Chemistry S LIPIDon 02-05-2024 Cholesterol [Mass/Vol] 173 mg/dL Normal 0-200 [facility] ([place]) Comment on above: Result Comment: Chol esterol Reference Interval: Less than 200 Desirable 200-239 Borderline high risk 240 and above High risk Performed By: #### YARIEL GORMAN #### [address] [address] Cholesterol in HDL [Mass/Vol] 62 mg/dL High 40-60 [facility] ([place]) Comment on above: Performed By: #### YARIEL GORMAN #### [address] [address] Cholesterol in LDL [Mass/Vol] 100 mg/dL Normal 0-130 [facility] ([place]) Comment on above: Performed By: #### YARIEL GORMAN #### [address] [address] Triglyceride [Mass/Vol] 56 mg/dL Normal 0-150 [facility] ([place]) Comment on above: Result Comment: Trig lyceride Reference Interval: Less than 150 Normal 150-199 Borderline high risk 200-499 High risk 500 or higher Very high risk Performed By: #### R PCUR, UA #### [place] [address] PTHon 01-04-2024 PTH, Intact 105.1 pg/mL High 18.5-88.0 [facility] ([place]) Comment on above: Performed By: #### C BC, ADIFF, VIDH, ANEU, RFP, GFR #### [place] [address] #### PTH #### [address] [address] .Auto Diffon 01-03-2024 Basophil, Absolute 0.0 10 3/mcL Normal 0.0-0.2 [facility] [place] Comment on above: Performed By: #### C BC, ADIFF, VIDH, ANEU, RFP, GFR #### [place] [address] #### PTH #### [address] [address] Basophils/100 WBC (Bld) 0.5 % Normal 0.0-2.5 [facility] ([place]) Comment on above: Performed By: #### C BC, ADIFF, VIDH, ANEU, RFP, GFR #### [place] [address] #### PTH #### [place] [address] Eosinophil, Absolute 0.2 10 3/mcL Normal 0.0-0.4 [facility] ([place]) Comment on above: Performed By: #### C BC, ADIFF, VIDH, ANEU, RFP, GFR #### [place] [address] #### PTH #### [address] [address] Eosinophils/100 WBC (Bld) 4.4 % Normal 0.0-7.0 [facility] ([place]) Comment on above: Performed By: #### C BC, ADIFF, VIDH, ANEU, RFP, GFR #### [address] [address] #### PTH #### [address] [address] Lymphocyte, Absolute 0.8 10 3/mcL Normal 0.8-3.9 [facility] ([place]) Comment on above: Performed By: #### C BC, ADIFF, VIDH, ANEU, RFP, GFR #### [address] [address] #### PTH #### [address] [address] Lymphocytes/100 WBC (Bld) 18.4 % Normal 10.0-50.0 [facility] ([place]) Comment on above: Performed By: #### C BC, ADIFF, VIDH, ANEU, RFP, GFR #### [address] [address] #### PTH #### [address] [address] Monocyte, Absolute 0.5 10 3/mcL Normal 0.2-1.0 [facility] [place] Comment on above: Performed By: #### C BC, ADIFF, VIDH, ANEU, RFP, GFR #### [address] [address] #### PTH #### [address] [address] Monocytes/100 WBC (Bld) 12.0 % Normal 1.7-13.0 [facility] ([place]) Comment on above: Performed By: #### C BC, ADIFF, VIDH, ANEU, RFP, GFR #### [address] [address] #### PTH #### [address] [address] Neutrophils/100 WBC (Bld) 64.7 % Normal 37.0-80.0 [facility] ([place]) Comment on above: Performed By: #### C BC, ADIFF, VIDH, ANEU, RFP, GFR #### [address] [place] [address] #### PTH #### [address] [address] .GFRon 01-03-2024 GFR Non- 42 ml/min/1.73sqm Normal [facility] ([place]) Comment on above: Result Comment: GFR Population mean for , Non- Americans Ages 20-29 = 116 mL/min/1.73 sq.m. Ages 30-39 = 107 mL/min/1.73 sq.m. Ages 40-49 = 99 mL/min/1.73 sq.m. Ages 50-59 = 93 mL/min/1.73 sq.m. Ages 60-69 = 85 mL/min/1.73 sq.m. Ages 70+ = 75 mL/min/1.73 sq.m. Chronic Kidney Disease: Less than 60 mL/min/1.73 square meters End Stage Renal Disease: Less than 15 mL/min/1.73 square meters Performed By: #### C BC, ADIFF, VIDH, ANEU, RFP, GFR #### [address] [address] #### PTH #### [address] [address] GFR 51 ml/min/1.73sqm Normal [facility] ([place]) Comment on above: Result Comment: GFR Population mean for , Non- Americans Ages 20-29 = 116 mL/min/1.73 sq.m. Ages 30-39 = 107 mL/min/1.73 sq.m. Ages 40-49 = 99 mL/min/1.73 sq.m. Ages 50-59 = 93 mL/min/1.73 sq.m. Ages 60-69 = 85 mL/min/1.73 sq.m. Ages 70+ = 75 mL/min/1.73 sq.m. Chronic Kidney Disease: Less than 60 mL/min/1.73 square meters End Stage Renal Disease: Less than 15 mL/min/1.73 square meters Performed By: #### C BC, ADIFF, VIDH, ANEU, RFP, GFR #### [address] [address] #### PTH #### [address] [address] .NEUABSon 01-03-2024 Neutrophil, Absolute 2.7 10 3/mcL Low 2.9-6.2 [facility] ([place]) Comment on above: Performed By: #### C BC, ADIFF, VIDH, ANEU, RFP, GFR #### [place] [address] #### PTH #### [place] [address] CBCon 01-03-2024 Erythrocyte distribution width (RBC) [Ratio] 13.9 % Normal 11.5-14.5 [facility] ([place]) Comment on above: Performed By: #### C BC, ADIFF, VIDH, ANEU, RFP, GFR #### [place] [address] #### PTH #### [place] [address] Hematocrit (Bld) [Volume fraction] 39.5 % Low 42.0-52.0 [facility] ([place]) Comment on above: Performed By: #### C BC, ADIFF, VIDH, ANEU, RFP, GFR #### [place] [address] #### PTH #### [place] [address] Hgb 13.7 G/dL Low 14.0-18.0 [facility] ([place]) Comment on above: Performed By: #### C BC, ADIFF, VIDH, ANEU, RFP, GFR #### [place] [address] #### PTH #### [place] [address] MCH (RBC) [Entitic mass] 32.1 pg High 27.0-31.2 [facility] ([place]) Comment on above: Performed By: #### C BC, ADIFF, VIDH, ANEU, RFP, GFR #### [place] [id number] #### PTH #### [place] [address] MCHC 34.7 G/dL Normal 31.8-35.4 [facility] ([place]) Comment on above: Performed By: #### C BC, ADIFF, VIDH, ANEU, RFP, GFR #### [place] [address] #### PTH #### [place] [address] MCV (RBC) [Entitic vol] 92.4 fL Normal 80.0-94.0 [facility] ([place]) Comment on above: Performed By: #### C BC, ADIFF, VIDH, ANEU, RFP, GFR #### [place] [address] #### PTH #### [place] [address] Platelet 114 10 3/mcL Low 130-400 [facility] ([place]) Comment on above: Performed By: #### C BC, ADIFF, VIDH, ANEU, RFP, GFR #### [place] [address] #### PTH #### [place] [address] Platelet mean volume (Bld) [Entitic vol] 8.8 fL Normal 7.4-10.4 [facility] ([place]) Comment on above: Performed By: #### C BC, ADIFF, VIDH, ANEU, RFP, GFR #### [place] [address] #### PTH #### [place] [address] RBC 4.27 10 6/mcL Normal 4.04-6.13 [facility] ([place]) Comment on above: Performed By: #### C BC, ADIFF, VIDH, ANEU, RFP, GFR #### [place] [address] #### PTH #### [address] [address] WBC 4.1 10 3/mcL Low 4.6-10.8 [facility] ([place]) Comment on above: Performed By: #### C BC, ADIFF, VIDH, ANEU, RFP, GFR #### [address] [address] #### PTH #### [address] [address] RFPon 01-03-2024 Albumin Level 3.2 G/dL Low 3.4-4.8 [facility] ([place]) Comment on above: Performed By: #### C BC, ADIFF, VIDH, ANEU, RFP, GFR #### [address] [address] #### PTH #### [address] [address] BUN/Creatinine Ratio 24 ratio Normal 7-27 [facility] ([place]) Comment on above: Performed By: #### C BC, ADIFF, VIDH, ANEU, RFP, GFR #### [address] [address] #### PTH #### [address] [address] Calcium [Mass/Vol] 9.1 mg/dL Normal 8.4-10.2 [facility] ([place]) Comment on above: Performed By: #### C BC, ADIFF, VIDH, ANEU, RFP, GFR #### [address] [address] #### PTH #### [address] [address] Chloride [Moles/Vol] 101 mmol/L Normal 98-107 [facility] [place]) Comment on above: Performed By: #### C BC, ADIFF, VIDH, ANEU, RFP, GFR #### [address] [address] #### PTH #### [address] [address] CO2 [Moles/Vol] 32 mmol/L High 23-31 [facility] ([place]) Comment on above: Performed By: #### C BC, ADIFF, VIDH, ANEU, RFP, GFR #### [address] [address] #### PTH #### [address] [address] Creatinine [Mass/Vol] 1.58 mg/dL High 0.70-1.30 [facility] ([place]) Comment on above: Performed By: #### C BC, ADIFF, VIDH, ANEU, RFP, GFR #### [address] [address] #### PTH #### [address] [address] Electrolyte Balance 5.0 mEq/L Normal 4.0-15.0 [facility] ([place]) Comment on above: Performed By: #### C BC, ADIFF, VIDH, ANEU, RFP, GFR #### [place] [address] #### PTH #### [address] [address] Glucose [Mass/Vol] 97 mg/dL Normal 83-110 [facility] ([place]) Comment on above: Performed By: #### C BC, ADIFF, VIDH, ANEU, RFP, GFR #### [address] [address] #### PTH #### [address] [address] Phosphate [Mass/Vol] 3.3 mg/dL Normal 2.3-4.1 [facility] [place]) Comment on above: Performed By: #### C BC, ADIFF, VIDH, ANEU, RFP, GFR #### [address] [address] #### PTH #### [address] [address] Potassium [Moles/Vol] 3.6 mmol/L Normal 3.5-5.1 [facility] ([place]) Comment on above: Performed By: #### C BC, ADIFF, VIDH, ANEU, RFP, GFR #### [address] [address] #### PTH #### [address] [address] Sodium [Moles/Vol] 138 mmol/L Normal 136-145 [facility] ([place]) Comment on above: Performed By: #### C BC, ADIFF, VIDH, ANEU, RFP, GFR #### [address] [address] #### PTH #### [address] [address] Urea nitrogen [Mass/Vol] 38 mg/dL High 7-18 [facility] ([place]) Comment on above: Performed By: #### C BC, ADIFF, VIDH, ANEU, RFP, GFR #### [address] [address] #### PTH #### [address] [address] RPCURon 01-03-2024 U Creatinine 186.5 mg/dL Normal 39.0-259.0 [facility] ([place]) Comment on above: Performed By: #### Marimar PEREYRA UA #### [address] [address] U Protein 30 mg/dL High 0-11 [facility] ([place]) Comment on above: Performed By: #### Marimar PEREYRA UA #### [address] [address] U Ratio Prot/Creat 0.2 ratio Normal [facility] ([place]) Comment on above: Result Comment: resu lt calculated by rule [id number] (U Protein/U Creatinine) Performed By: #### Marimar PEREYRA UA #### [address] [address] UAon 01-03-2024 Color (U) Yellow Normal [facility] ([place]) Comment on above: Performed By: #### Marimar PEREYRA UA #### [place] [address] Glucose (U) [Mass/Vol] Negative Normal Negative [facility] ([place]) Comment on above: Performed By: #### R PCUR, UA #### [place] [id number] Ketones Ql (U) Negative Normal Negative [facility] ([place]) Comment on above: Performed By: #### R PCUR, UA #### [place] [address] UA Appear Clear Normal Clear [facility] ([place]) Comment on above: Performed By: #### R PCUR, UA #### [place] [address] UA Blood Negative Normal Negative [facility] ([place]) Comment on above: Performed By: #### R PCUR, UA #### [place] [address] UA Leuk Est Negative Normal Negative [facility] ([place]) Comment on above: Performed By: #### R PCUR, UA #### [place] [id number] UA Nitrite Negative Normal Negative [facility] ([place]) Comment on above: Performed By: #### R PCUR, UA #### [place] [id number] UA pH 6.0 Normal 5.0 - 8.0 [facility] ([place]) Comment on above: Performed By: #### R PCUR, UA #### [place] [address] UA Protein Negative Normal Negative [facility] ([place]) Comment on above: Performed By: #### R PCUR, UA #### [place] [address] UA Spec Grav 1.025 Normal 1.015-1.025 [facility] ([place]) Comment on above: Performed By: #### R PCUR, UA #### [place] [address] UA Specimen Type Void Normal [facility] ([place]) Comment on above: Performed By: #### R PCUR, UA #### [address] [address] UA Urobilinogen 0.2 E.U./dL Normal 0.2-1.0 [facility] ([place]) Comment on above: Performed By: #### R PCUR, UA #### [address] [address] Urobilinogen (U) [Mass/Vol] Negative Normal Negative [facility] ([place]) Comment on above: Performed By: #### R PCUR, UA #### [address] [address] VIDHon 01-03-2024 Vit. D 25-Hydroxy 73.0 ng/mL Normal [facility] ([place]) Comment on above: Result Comment: Inte rpretive Values Based on Total 25(OH) Vitamin D: Deficient <20 ng/mL Insufficient 20 - <30 ng/mL Sufficient 30-100 ng/mL Performed By: #### C BC, ADIFF, VIDH, ANEU, RFP, GFR #### [address] [address] #### PTH #### [address] [address] .GFRon 08-02-2023 GFR Non- 41 ml/min/1.73sqm Normal [facility] ([place]) Comment on above: Result Comment: GFR Population mean for , Non- Americans Ages 20-29 = 116 mL/min/1.73 sq.m. Ages 30-39 = 107 mL/min/1.73 sq.m. Ages 40-49 = 99 mL/min/1.73 sq.m. Ages 50-59 = 93 mL/min/1.73 sq.m. Ages 60-69 = 85 mL/min/1.73 sq.m. Ages 70+ = 75 mL/min/1.73 sq.m. Chronic Kidney Disease: Less than 60 mL/min/1.73 square meters End Stage Renal Disease: Less than 15 mL/min/1.73 square meters Performed By: #### R PCUR, UA #### [address] [address] GFR 50 ml/min/1.73sqm Normal [facility] ([place]) Comment on above: Result Comment: GFR Population mean for , Non- Americans Ages 20-29 = 116 mL/min/1.73 sq.m. Ages 30-39 = 107 mL/min/1.73 sq.m. Ages 40-49 = 99 mL/min/1.73 sq.m. Ages 50-59 = 93 mL/min/1.73 sq.m. Ages 60-69 = 85 mL/min/1.73 sq.m. Ages 70+ = 75 mL/min/1.73 sq.m. Chronic Kidney Disease: Less than 60 mL/min/1.73 square meters End Stage Renal Disease: Less than 15 mL/min/1.73 square meters Performed By: #### YARIEL GORMAN #### [place] [id number] HGMPon 08-02-2023 Erythrocyte distribution width (RBC) [Ratio] 13.3 % Normal 11.5-14.5 [facility] ([place]) Comment on above: Performed By: #### YARIEL GORMAN #### [address] [address] Hematocrit (Bld) [Volume fraction] 39.4 % Low 42.0-52.0 [facility] ([place]) Comment on above: Performed By: #### Marimar PEREYRA UA #### [address] [address] Hgb 13.5 G/dL Low 14.0-18.0 [facility] ([place]) Comment on above: Performed By: #### YARIEL GORMAN #### [address] [address] MCH (RBC) [Entitic mass] 31.9 pg High 27.0-31.2 [facility] ([place]) Comment on above: Performed By: #### YARIEL GORMAN #### [address] [address] MCHC 34.2 G/dL Normal 31.8-35.4 [facility] ([place]) Comment on above: Performed By: #### YARIEL GORMAN #### [address] [address] MCV (RBC) [Entitic vol] 93.3 fL Normal 80.0-94.0 [facility] ([place]) Comment on above: Performed By: #### YARIEL GORMAN #### [place] [address] Platelet 126 10 3/mcL Low 130-400 [facility] ([place]) Comment on above: Performed By: #### YARIEL GORMAN #### [address] [address] Platelet mean volume (Bld) [Entitic vol] 8.6 fL Normal 7.4-10.4 [facility] ([place]) Comment on above: Performed By: #### YARIEL GORMAN #### [place] [address] [address] RBC 4.22 10 6/mcL Normal 4.04-6.13 [facility] ([place]) Comment on above: Performed By: #### YARIEL GORMAN #### [place] [address] WBC 4.2 10 3/mcL Low 4.6-10.8 [facility] ([place]) Comment on above: Performed By: #### YARIEL GORMAN #### [address] [address] PTHon 08-02-2023 PTH, Intact 38.0 pg/mL Normal 18.5-88.0 [facility] ([place]) Comment on above: Performed By: #### YARIEL GORMAN #### [place] [address] RFPon 08-02-2023 Albumin Level 3.4 G/dL Normal 3.4-4.8 [facility] ([place]) Comment on above: Performed By: #### Marimar PEREYRA UA #### [address] [address] BUN/Creatinine Ratio 23 ratio Normal 7-27 [facility] [place]) Comment on above: Performed By: #### Marimar PEREYRA UA #### [address] [address] Calcium [Mass/Vol] 9.6 mg/dL Normal 8.4-10.2 [facility] ([place]) Comment on above: Performed By: #### Marimar PEREYRA, UA #### [address] [address] Chloride [Moles/Vol] 99 mmol/L Normal 98-107 [facility] [place]) Comment on above: Performed By: #### Marimar PEREYRA UA #### [address] [address] CO2 [Moles/Vol] 32 mmol/L High 23-31 [facility] ([place]) Comment on above: Performed By: #### Marimar PEREYRA UA #### [place] [address] Creatinine [Mass/Vol] 1.60 mg/dL High 0.70-1.30 [facility] ([place]) Comment on above: Performed By: #### Marimar PEREYRA UA #### [address] [address] Electrolyte Balance 6.0 mEq/L Normal 4.0-15.0 [facility] ([place]) Comment on above: Performed By: #### Marimar PEREYRA, UA #### [place] [address] [address] Glucose [Mass/Vol] 92 mg/dL Normal 83-110 [facility] ([place]) Comment on above: Performed By: #### Marimar PEREYRA, UA #### [address] [address] Phosphate [Mass/Vol] 3.6 mg/dL Normal 2.3-4.1 [facility] [place]) Comment on above: Performed By: #### Marimar PEREYRA UA #### [place] [address] [address] Potassium [Moles/Vol] 3.6 mmol/L Normal 3.5-5.1 [facility] ([place]) Comment on above: Performed By: #### R PCUR, UA #### [address] [address] Sodium [Moles/Vol] 137 mmol/L Normal 136-145 [facility] ([place]) Comment on above: Performed By: #### R PCUR, UA #### [address] [address] Urea nitrogen [Mass/Vol] 37 mg/dL High 7-18 [facility] ([place]) Comment on above: Performed By: #### R PCLATISHA, UA #### [address] [address] RPCURon 08-02-2023 U Creatinine 149.0 mg/dL Normal 39.0-259.0 [facility] ([place]) Comment on above: Performed By: #### C BC, ADIFF, VIDH, ANEU, RFP, GFR #### [address] [address] #### PTH #### [address] [address] U Protein 27 mg/dL High 0-11 [facility] ([place]) Comment on above: Performed By: #### C BC, ADIFF, VIDH, ANEU, RFP, GFR #### [address] [address] #### PTH #### [address] [address] U Ratio Prot/Creat 0.2 ratio Normal [facility] ([place]) Comment on above: Result Comment: resu lt calculated by rule GL_[id number]_[id number]_OLD (U Protein/U Creatinine) Performed By: #### C BC, ADIFF, VIDH, ANEU, RFP, GFR #### [address] [address] #### PTH #### [address] [address] VIDHon 08-02-2023 Vit. D 25-Hydroxy 61.7 ng/mL Normal [facility] ([place]) Comment on above: Result Comment: Inte rpretive Values Based on Total 25(OH) Vitamin D: Deficient <20 ng/mL Insufficient 20 - <30 ng/mL Sufficient 30-100 ng/mL Performed By: #### R PCUR, UA #### [place] [id number] [place], [place] [address] LABORATORYOrdered By: Brent Jacques on 02-01-2023 Creatinine (U) [Mass/Vol] 149.4 mg/dL Invalid Interpretation Code 39.0 - 259.0 mg/dL AO ADM SS Protein (U) [Mass/Vol] 30 mg/dL Invalid Interpretation Code 0 - 11 mg/dL AO ADM SS U Ratio Prot/Creat 0.2 ratio Invalid Interpretation Code AO Chemistry S Cholesterol [Mass/Vol] 183 mg/dL Invalid Interpretation Code 0 - 200 mg/dL AO ADM SS Cholesterol in HDL [Mass/Vol] 64 mg/dL Invalid Interpretation Code 40 - 60 mg/dL AO ADM SS Cholesterol in LDL [Mass/Vol] 103 mg/dL Invalid Interpretation Code 0 - 130 mg/dL AO ADM SS Triglyceride [Mass/Vol] 78 mg/dL Invalid Interpretation Code 0 - 150 mg/dL AO ADM SS LABORATORYOrdered By: [employer] on 02-01-2023 Albumin BCP dye [Mass/Vol] 3.3 G/dL Invalid Interpretation Code 3.4 - 4.8 G/dL AO ADM SS Calcium [Mass/Vol] 9.6 mg/dL Invalid Interpretation Code 8.4 - 10.2 mg/dL AO ADM SS Chloride [Moles/Vol] 100 mmol/L Invalid Interpretation Code 98 - 107 mmol/L AO ADM SS CO2 [Moles/Vol] 31 mmol/L Invalid Interpretation Code 23 - 31 mmol/L AO ADM SS Creatinine [Mass/Vol] 1.57 mg/dL Invalid Interpretation Code 0.70 - 1.30 mg/dL AO ADM SS Electrolyte Balance 8.0 mEq/L Invalid Interpretation Code 4.0 - 15.0 mEq/L AO ADM SS GFR 52 ml/min/1.73sqm Invalid Interpretation Code AO Chemistry S GFR Non- 43 ml/min/1.73sqm Invalid Interpretation Code AO Chemistry S Glucose [Mass/Vol] 88 mg/dL Invalid Interpretation Code 83 - 110 mg/dL AO ADM SS Parathyrin.intact [Mass/Vol] 35.6 pg/mL Invalid Interpretation Code 18.5 - 88.0 pg/mL AH ADM SS Phosphate [Mass/Vol] 3.6 mg/dL Invalid Interpretation Code 2.3 - 4.1 mg/dL AO ADM SS Potassium [Moles/Vol] 4.0 mmol/L Invalid Interpretation Code 3.5 - 5.1 mmol/L AO ADM SS Sodium [Moles/Vol] 139 mmol/L Invalid Interpretation Code 136 - 145 mmol/L AO ADM SS Urea nitrogen [Mass/Vol] 38 mg/dL Invalid Interpretation Code 7 - 18 mg/dL AO ADM SS Urea nitrogen/Creatinine [Mass ratio] 24 ratio Invalid Interpretation Code 7 - 27 ratio AO ADM SS Vit. D 25-Hydroxy 63.8 ng/mL Invalid Interpretation Code AO ADM SS Albumin BCP dye [Mass/Vol] 3.3 G/dL Invalid Interpretation Code 3.4 - 4.8 G/dL AO ADM SS Albumin/Globulin [Mass ratio] 1.2 {ratio} Invalid Interpretation Code 1.1 - 2.5 ratio AO ADM SS ALP [Catalytic activity/Vol] 67 U/L Invalid Interpretation Code 40 - 135 U/L AO ADM SS ALT With P-5'-P [Catalytic activity/Vol] 28 U/L Invalid Interpretation Code 16 - 63 U/L AO ADM SS AST With P-5'-P [Catalytic activity/Vol] 22 U/L Invalid Interpretation Code 10 - 40 U/L AO ADM SS Bilirubin [Mass/Vol] 1.3 mg/dL Invalid Interpretation Code 0.2 - 1.0 mg/dL AO ADM SS Calcium [Mass/Vol] 9.7 mg/dL Invalid Interpretation Code 8.4 - 10.2 mg/dL AO ADM SS Chloride [Moles/Vol] 102 mmol/L Invalid Interpretation Code 98 - 107 mmol/L AO ADM SS CO2 [Moles/Vol] 34 mmol/L Invalid Interpretation Code 23 - 31 mmol/L AO ADM SS Creatinine [Mass/Vol] 1.60 mg/dL Invalid Interpretation Code 0.70 - 1.30 mg/dL AO ADM SS Electrolyte Balance 6.0 mEq/L Invalid Interpretation Code 4.0 - 15.0 mEq/L AO ADM SS GFR 50 ml/min/1.73sqm Invalid Interpretation Code AO Chemistry S GFR Non- 42 ml/min/1.73sqm Invalid Interpretation Code AO Chemistry S Globulin 2.7 G/dL Invalid Interpretation Code AO ADM SS Glucose [Mass/Vol] 89 mg/dL Invalid Interpretation Code 83 - 110 mg/dL AO ADM SS Potassium [Moles/Vol] 4.1 mmol/L Invalid Interpretation Code 3.5 - 5.1 mmol/L AO ADM SS Protein [Mass/Vol] 6.0 G/dL Invalid Interpretation Code 6.4 - 8.2 G/dL AO ADM SS Sodium [Moles/Vol] 142 mmol/L Invalid Interpretation Code 136 - 145 mmol/L AO ADM SS TSH Qn 0.84 m[IU]/L Invalid Interpretation Code 0.36 - 3.74 mcIU/mL AO ADM SS Urea nitrogen [Mass/Vol] 36 mg/dL Invalid Interpretation Code 7 - 18 mg/dL AO ADM SS Urea nitrogen/Creatinine [Mass ratio] 22 ratio Invalid Interpretation Code 7 - 27 ratio AO ADM SS LABORATORYOrdered By: Nicolás Benjamin on 02-01-2023 Erythrocyte distribution width (RBC) [Ratio] 14.2 % Invalid Interpretation Code 11.5 - 14.5 % AO Workflow SS Hematocrit (Bld) [Volume fraction] 40.2 % Invalid Interpretation Code 42.0 - 52.0 % AO Workflow SS Hemoglobin (Bld) [Mass/Vol] 14.0 G/dL Invalid Interpretation Code 14.0 - 18.0 G/dL AO Workflow SS MCH (RBC) [Entitic mass] 32.1 pg Invalid Interpretation Code 27.0 - 31.2 pg AO Workflow SS MCHC 34.8 G/dL Invalid Interpretation Code 31.8 - 35.4 G/dL AO Workflow SS MCV (RBC) [Entitic vol] 92.1 fL Invalid Interpretation Code 80.0 - 94.0 fL AO Workflow SS Platelet mean volume (Bld) [Entitic vol] 8.4 fL Invalid Interpretation Code 7.4 - 10.4 fL AO Workflow SS Platelets (Bld) [#/Vol] 128 103/mcL Invalid Interpretation Code 130 - 400 10^3/mcL AO Workflow SS RBC (Bld) [#/Vol] 4.37 106/mcL Invalid Interpretation Code 4.04 - 6.13 10^6/mcL AO Workflow SS WBC (Bld) [#/Vol] 4.3 103/mcL Invalid Interpretation Code 4.6 - 10.8 10^3/mcL AO Workflow SS LABORATORYOrdered By: Nivia Zacarias on 08-14-2022 Albumin BCP dye [Mass/Vol] 3.3 G/dL Invalid Interpretation Code 3.4 - 4.8 G/dL AO ADM SS Albumin/Globulin [Mass ratio] 1.2 {ratio} Invalid Interpretation Code 1.1 - 2.5 ratio AO ADM SS ALP [Catalytic activity/Vol] 75 U/L Invalid Interpretation Code 40 - 135 U/L AO ADM SS ALT With P-5'-P [Catalytic activity/Vol] 34 U/L Invalid Interpretation Code 16 - 63 U/L AO ADM SS AST With P-5'-P [Catalytic activity/Vol] 21 U/L Invalid Interpretation Code 10 - 40 U/L AO ADM SS Bilirubin [Mass/Vol] 0.8 mg/dL Invalid Interpretation Code 0.2 - 1.0 mg/dL AO ADM SS Calcium [Mass/Vol] 8.9 mg/dL Invalid Interpretation Code 8.4 - 10.2 mg/dL AO ADM SS Chloride [Moles/Vol] 101 mmol/L Invalid Interpretation Code 98 - 107 mmol/L AO ADM SS CO2 [Moles/Vol] 31 mmol/L Invalid Interpretation Code 23 - 31 mmol/L AO ADM SS Creatinine [Mass/Vol] 1.62 mg/dL Invalid Interpretation Code 0.70 - 1.30 mg/dL AO ADM SS Electrolyte Balance 6.0 mEq/L Invalid Interpretation Code 4.0 - 15.0 mEq/L AO ADM SS Globulin 2.8 G/dL Invalid Interpretation Code AO ADM SS Glucose [Mass/Vol] 90 mg/dL Invalid Interpretation Code 83 - 110 mg/dL AO ADM SS Potassium [Moles/Vol] 3.7 mmol/L Invalid Interpretation Code 3.5 - 5.1 mmol/L AO ADM SS Protein [Mass/Vol] 6.1 G/dL Invalid Interpretation Code 6.4 - 8.2 G/dL AO ADM SS Sodium [Moles/Vol] 138 mmol/L Invalid Interpretation Code 136 - 145 mmol/L AO ADM SS TSH Qn 0.61 m[IU]/L Invalid Interpretation Code 0.36 - 3.74 mcIU/mL AO ADM SS Urea nitrogen [Mass/Vol] 32 mg/dL Invalid Interpretation Code 7 - 18 mg/dL AO ADM SS Urea nitrogen/Creatinine [Mass ratio] 20 ratio Invalid Interpretation Code 7 - 27 ratio AO ADM SS Vit. D 25-Hydroxy 70.6 ng/mL Invalid Interpretation Code AO ADM SS LABORATORYOrdered By: Kristyn Richardson on 08-14-2022 Basophil, Absolute 0.0 103/mcL Invalid Interpretation Code 0.0 - 0.2 10^3/mcL AO Workflow SS Basophils/100 WBC (Bld) 0.5 % Invalid Interpretation Code 0.0 - 2.5 % AO Workflow SS Eosinophil, Absolute 0.2 103/mcL Invalid Interpretation Code 0.0 - 0.4 10^3/mcL AO Workflow SS Eosinophils/100 WBC (Bld) 3.9 % Invalid Interpretation Code 0.0 - 7.0 % AO Workflow SS Erythrocyte distribution width (RBC) [Ratio] 13.2 % Invalid Interpretation Code 11.5 - 14.5 % AO Workflow SS Hematocrit (Bld) [Volume fraction] 40.2 % Invalid Interpretation Code 42.0 - 52.0 % AO Workflow SS Hemoglobin (Bld) [Mass/Vol] 14.2 G/dL Invalid Interpretation Code 14.0 - 18.0 G/dL AO Workflow SS Lymphocyte, Absolute 0.6 103/mcL Invalid Interpretation Code 0.8 - 3.9 10^3/mcL AO Workflow SS Lymphocytes/100 WBC (Bld) 12.2 % Invalid Interpretation Code 10.0 - 50.0 % AO Workflow SS MCH (RBC) [Entitic mass] 32.4 pg Invalid Interpretation Code 27.0 - 31.2 pg AO Workflow SS MCHC 35.3 G/dL Invalid Interpretation Code 31.8 - 35.4 G/dL AO Workflow SS MCV (RBC) [Entitic vol] 91.8 fL Invalid Interpretation Code 80.0 - 94.0 fL AO Workflow SS Monocyte, Absolute 0.6 103/mcL Invalid Interpretation Code 0.2 - 1.0 10^3/mcL AO Workflow SS Monocytes/100 WBC (Bld) 11.4 % Invalid Interpretation Code 1.7 - 13.0 % AO Workflow SS Neutrophil, Absolute 3.7 103/mcL Invalid Interpretation Code 2.9 - 6.2 10^3/mcL AO Workflow SS Neutrophils/100 WBC (Bld) 72.0 % Invalid Interpretation Code 37.0 - 80.0 % AO Workflow SS Platelet mean volume (Bld) [Entitic vol] 9.0 fL Invalid Interpretation Code 7.4 - 10.4 fL AO Workflow SS Platelets (Bld) [#/Vol] 131 103/mcL Invalid Interpretation Code 130 - 400 10^3/mcL AO Workflow SS RBC (Bld) [#/Vol] 4.38 106/mcL Invalid Interpretation Code 4.04 - 6.13 10^6/mcL AO Workflow SS WBC (Bld) [#/Vol] 5.1 103/mcL Invalid Interpretation Code 4.6 - 10.8 10^3/mcL AO Workflow SS LABORATORYOrdered By: SYSTEM SYSTEM on 08-14-2022 Cobalamin (Vitamin B12) [Mass/Vol] 1293 pg/mL Invalid Interpretation Code 211 - 911 pg/mL AH ADM SS GFR 50 ml/min/1.73sqm Invalid Interpretation Code AO Chemistry S GFR Non- 41 ml/min/1.73sqm Invalid Interpretation Code AO Chemistry S Basophil percentageon 2021 Basophil percentage 3.5 mg/dL 2.5-4.9 [facility] Work [facility]: [phone] Chloride [Moles/Vol] 104 mmol/L 98-107 [facility]: Glucose [Mass/Vol] 99 mg/dL 74-106 [facility] Work Phone: Potassium [Moles/Vol] 3.5 mmol/L 3.5-5.1 [facility] Work Phone: Sodium [Moles/Vol] 139 mmol/L 136-145 [facility] Work Phone: WBC (Bld) [#/Vol] 4.7 10*3/uL 4.4-11.0 [facility] Work Phone: Blood erythrocytes count (nu mber/volume)on 01-29-2022 RBC (Bld) [#/Vol] 4.39 10*6/uL 4.6-6.2 [facility] Work Phone: [phone] Blood hemoglobin measurement (mass/volume)on 01-29-2022 Hemoglobin (Bld) [Mass/Vol] 14.1 g/dL 13.0-16.5 [facility] Work Phone: Blood platelet mean volumeon 01-29-2022 Platelet mean volume (Bld) [Entitic vol] 10.9 fL 6.2-12.0 [facility] [facility] Work Phone: Determination of erythrocyte mean corpuscular volume (MCV)on 01-29-2022 MCV (RBC) [Entitic vol] 91.6 fL 80-94 [facility] Work Phone: Hematocrit Auto (Bld) [Volum e fraction]on 01-29-2022 Hematocrit (Bld) [Volume fraction] 40.2 % 40-54 [facility] Work Phone: Laboratory - Chemistry and C hemistry - challengeon 01-29-2022 CO2 [Moles/Vol] 30.0 mmol/L 21.0-32.0 [facility] Work Phone: Magnesium [Mass/Vol] 2.0 mg/dL 1.6-2.6 [facility] Work Phone: Urea nitrogen/Creatinine [Mass ratio] 28.0 mg/mg 10-20 [facility] Work Phone: Laboratory - Hematology and Cell countson 01-29-2022 Erythrocyte distribution width (RBC) [Entitic vol] 43.5 fL 35.1-43.9 [facility] Work Phone: Erythrocyte distribution width (RBC) [Ratio] 12.9 % 11.6-14.6 [facility] Work Phone: MCH (RBC) [Entitic mass] 32.1 pg 27.0-32.0 [facility] Work Phone: MCHC Auto (RBC) [Mass/Vol]on 01-29-2022 MCHC (RBC) [Mass/Vol] 35.1 g/dL 32-36 [facility] Work Phone: No Panel Informationon 01-29 Estimated GFR (MDRD) Amer 53 mL/min >60 [facility] Work Phone: Comment on above: GFR Calc Estimated GFR (MDRD) Non-Af Amer 44 mL/min >60 [facility] Work Phone: Comment on above: Non- GFR Calc Parathyroid Hormone (Intact) 37.5 pg/mL 18.4-80.1 [facility] Work Phone: Urine Microalbumin/Creatin ine Ratio 81.8 mg/g CRE <30 [facility] Work Phone: Vitamin D 25-Hydroxy 66.9 ng/mL [facility] Work Phone: Comment on above: Vitamin D 25(OH) Sta tus Range Deficiency <20 ng/mL (50nmol/L) Insufficiency 20 - 30 ng/mL (50 - 75 nmol/L) Sufficiency 30 - 100 ng/mL (75 - 250 nmol/L) Toxicity >100 ng/mL (>250 nmol/L) Platelets bldon 01-29-2022 Platelets (Bld) [#/Vol] 125 10*3/uL 150-450 [facility] Work Phone: Serum or plasma albumin saima urement (mass/volume)on 01-29-2022 Albumin [Mass/Vol] 3.2 g/dL 3.2-5.0 [facility] Work Phone: Serum or plasma calcium saima urement (mass/volume)on 01-29-2022 Calcium [Mass/Vol] 9.6 mg/dL 8.5-10.1 [facility] Work Phone: Serum or plasma creatinine m easurement (mass/volume)on 01-29-2022 Creatinine [Mass/Vol] 1.61 mg/dL 0.70-1.30 [facility] Work Phone: Comment on above: The validity of the calculated GFR & GFRAA in patients over 70 years has not been determined. Clinical correlation is essential. Serum or plasma urea nitroge n measurement (mass/volume)on 01-29-2022 Urea nitrogen [Mass/Vol] 45 mg/dL 7-18 [facility] Work Phone: Thin prep Papanicolaou smear with manual screeningon 01-29-2022 Thin prep Papanicolaou smear with manual screening 76.6 mg/L NO RANGE EST. [facility] Work Phone: Urine creatinine measurement (mass/volume)on 01-29-2022 Creatinine (U) [Mass/Vol] 93.60 mg/dL NO RANGE EST. [facility] Work Phone: Basophil percentageon 2021 Bilirubin [Mass/Vol] 0.70 mg/dL 0.20-1.00 [facility] Work Phone: Comment on above: For patients on eltr ombopag therapy, use of Dimension [place] TBIL is not recommended. Cholesterol [Mass/Vol] 159 mg/dL <200 [facility] Work Phone: Comment on above: <200 mg/dL Desirable 200-240 mg/dL Borderline >240 mg/dL High Risk Protein [Mass/Vol] 6.2 g/dL 6.4-8.2 [facility] Work Phone: Triglyceride [Mass/Vol] 60 mg/dL [facility] Work Phone: Comment on above: The drugs N-Acetylcy steine and Metamizole may falsely depress this assay.Serum Triglycerides Reference Interval Normal <150 mg/dL Borderline high 150 - 199 mg/dL High 200 - 499 mg/dL Very High > or = 500 mg/dL Direct bilirubinon 2 Bilirubin.direct [Mass/Vol] 0.21 mg/dL 0.00-0.30 [facility] Work Phone: Laboratory - Chemistry and C hemistry - challengeon 12-18-2021 ALP [Catalytic activity/Vol] 63 U/L 45-117 [facility] Work Phone: ALT [Catalytic activity/Vol] 24 U/L 16-61 [facility] Work Phone: Globulin (S) [Mass/Vol] 3.1 g/dL 2.2-4.2 [facility] Work Phone: Serum or plasma albumin saima urement (mass/volume)on 12-18-2021 Albumin [Mass/Vol] 3.1 g/dL 3.2-5.0 [facility] Work Phone: Serum or plasma cholesterol in HDL measurement (mass/volume)on 12-18-2021 Cholesterol in HDL [Mass/Vol] 62 mg/dL [facility] Work Phone: Comment on above: The drugs N-Acetylcy steine and Metamizole may falsely depress this assay. Reference Range HDL <40 mg/dL Low HDL Cholesterol HDL >or= 60 mg/dL High HDL Cholesterol Serum or plasma cholesterol in VLDL measurement (mass/volume)on 12-18-2021 Cholesterol in VLDL [Mass/Vol] 12 mg/dL 5-40 [facility] Work Phone: Serum or plasma low density lipoprotein (LDL) cholesterol measurement (mass/volume)on 12-18-2021 Cholesterol in LDL [Mass/Vol] 85 mg/dL 0-130 [facility] Work Phone: Thin prep Papanicolaou smear with manual screeningon 12-18-2021 Thin prep Papanicolaou smear with manual screening 18 U/L 15-37 [facility] Work Phone: Office Visiton 09-13-2017 Dietary management education, guidance, and counseling (procedure) yes Invalid Interpretation Code [facility] Work Phone: Documentation of current medications (procedure) Done Invalid Interpretation Code [facility] [employer] Work Phone: Fall risk assessment No Invalid Interpretation Code [facility] Work Phone: Clinical Lists Update: Clini marge Noteon 09-19-2016 Left ventricular Ejection fraction 60 % Invalid Interpretation Code [facility] Work Phone: Office Visiton 09-07-2016 Tobacco use CPHS Former smoker Invalid Interpretation Code [facility] Work Phone: Office Visiton 08-26-2015 cardiac risk group B Invalid Interpretation Code [facility] Work Phone: [phone] General cardiovascular disease 10Y risk [#] [place].D'Agost[place] o 18 % Invalid Interpretation Code [facility] Work Phone: [phone] Lab Report: BMPon 05-06-2013 Calcium 9.0 mg/dL Normal 8.5-10.1 [facility] Work Phone: [phone] Chloride 100 mmol/L Normal 98-107 [facility] Work Phone: [phone] CO2 6 mmol/L Normal 5-15 [facility] Work Phone: [phone] Creatinine 1.2 mg/dL Normal 0.8-1.3 [facility] Work Phone: [phone] Glucose mass conc 94 mg/dL Normal 70-110 [facility] Work Phone: [phone] Potassium molar conc 3.8 mmol/L Normal 3.5-5.[address] [facility] Work Phone: [phone] Sodium 139 mmol/L Normal 136-145 [facility] Work Phone: [phone] Urea nitrogen 19 mg/dL High 7-18 [facility] Work Phone: [phone] Office Visiton 05-06-2013 Alcoholism counseling (procedure) no Invalid Interpretation Code [facility] Work Phone: [phone] Replaced Document: Martha Wilson CG Observationson 05-06-2013 EKG QRS axis -23 deg Invalid Interpretation Code [facility] Work Phone: [phone] Interpretation Sinus Bradycardia WITHIN NORMAL LIMITS Invalid Interpretation Code [facility] Work Phone: [phone] P [place] 30 deg Invalid Interpretation Code [facility] Work Phone: [phone] IA Interval 204 ms Invalid Interpretation Code [facility] Work Phone: [phone] Pulse (Heart Rate) 50 /min Invalid Interpretation Code [facility] Work Phone: [phone] QRS Duration 94 ms Invalid Interpretation Code [facility] Work Phone: [phone] QT Interval new path ms Invalid Interpretation Code [facility] Work Phone: [phone] T [place] -1 deg Invalid Interpretation Code [facility] Work Phone: [phone] Clinical Lists Update: Pre 04-24-2013 Cholesterol 224 mg/dL Invalid Interpretation Code [facility] Work Phone: [phone] Cholesterol to HDL Ratio 2.9 {ratio} Invalid Interpretation Code [facility] Work Phone: [phone] HDL Cholesterol 76 mg/dL Invalid Interpretation Code [facility] Work Phone: [phone] LDL Cholesterol 129 mg/dL Invalid Interpretation Code [facility] Work Phone: [phone] Triglyceride 93 mg/dL Invalid Interpretation Code [facility] Work Phone: [phone] Clinical Lists Update: 03-05-2013 Hematocrit (HCT) 46.1 % Invalid Interpretation Code [facility] Work Phone: [phone] Hemoglobin mass conc (Bld) 15.7 g/dL Invalid Interpretation Code [facility] Work Phone: [phone] Platelets 122 10*3/mm3 Low [facility] Work Phone: [phone] WBC (Leukocytes) 5.0 10*3/uL Invalid Interpretation Code [facility] Work Phone: [phone] Clinical Lists Update: 02-12-2013 Alanine aminotransferase (ALT) 26 U/L Invalid Interpretation Code [facility] Work Phone: [phone] Alkaline phosphatase (ALP) 63 U/L Invalid Interpretation Code [facility] Work Phone: [phone] Aspartate aminotransferase (AST) 23 U/L Invalid Interpretation Code [facility] Work Phone: [phone] Bilirubin (total) 1.0 mg/dL Invalid Interpretation Code [facility] Work Phone: [phone] CO2 28 mmol/L Invalid Interpretation Code [facility] Work Phone: [phone] Vital Signs Date Time Vital Sign Value Performing Clinician Facility 03-03-2025 09:42-0400 Body mass index (BMI) [Ratio] 31.15 kg/m2 Elizabeth Mariee Work Phone: [facility] 03-03-2025 09:42-0400 Body temperature 97 [degF] Elizabethml Mariee Work Phone: [facility] 03-03-2025 09:42-0400 Body weight 86.86 kg Elizabeth Mariee Work Phone: [facility] 03-03-2025 09:42-0400 Diastolic blood pressure 71 mm[Hg] Elizabeth Mariee Work Phone: [facility] 03-03-2025 09:42-0400 Heart rate 64 /min Elizabeth Mariee Work Phone: [facility] 03-03-2025 09:42-0400 SaO2% (BldA) [Mass fraction] 96 % Elizabeth Mariee Work Phone: [facility] 03-03-2025 09:42-0400 Systolic blood pressure 120 mm[Hg] Elizabeth Mariee Work Phone: [facility] 01-11-2025 10:05-0400 Body temperature 98.5 [degF] Dr. Mook Burch DO Work Phone: [facility] 01-11-2025 10:05-0400 Diastolic blood pressure 81 mm[Hg] Dr. Mook Burch DO Work Phone: [facility] 01-11-2025 10:05-0400 Heart rate 58 /min Dr. Mook Burch DO Work Phone: [facility] 01-11-2025 10:05-0400 Respiratory rate 18 /min Dr. Mook Burch DO Work Phone: [facility] 01-11-2025 10:05-0400 SaO2% (BldA) [Mass fraction] 97 % Dr. Mook Burch DO Work Phone: [facility] 01-11-2025 10:05-0400 Systolic blood pressure 154 mm[Hg] Dr. Mook Burch DO Work Phone: [facility] 01-11-2025 07:54-0400 Body height 170.[address] Mook Burch DO Work Phone: [facility] 01-11-2025 07:54-0400 Body mass index (BMI) [Ratio] 29.4 kg/m2 Dr. Mook Burch DO Work Phone: [facility] 01-11-2025 07:54-0400 Body weight 85.[address] Mook Burch DO Work Phone: [facility] 02-19-2024 14:57-0400 Body height 167 cm Jeffry Monzoni DO Work Phone: [facility] Comment on above: verified with Babatunde Muñoz MA 02-19-2024 14:57-0400 Body mass index (BMI) [Ratio] 30.33 kg/m2 Jeffry Nicolási DO Work Phone: [facility] 02-19-2024 14:57-0400 Body temperature 97.39 [degF] Jeffry Masci DO Work Phone: [facility] 02-19-2024 14:57-0400 Body weight 84.6 kg Jeffry Masci DO Work Phone: [facility] 02-19-2024 14:57-0400 Diastolic blood pressure 74 mm[Hg] Jeffry Masci DO Work Phone: [facility] 02-19-2024 14:57-0400 Heart rate 65 /min Jeffry Masci DO Work Phone: [facility] 02-19-2024 14:57-0400 SaO2% (BldA) [Mass fraction] 95 % Jeffry Masci DO Work Phone: [facility] 02-19-2024 14:57-0400 Systolic blood pressure 122 mm[Hg] Jeffry Masci DO Work Phone: [facility] 01-13-2024 09:21-0400 Body temperature 97.6 [degF] [facility] 01-13-2024 09:21-0400 Diastolic blood pressure 80 mm[Hg] [facility] 01-13-2024 09:21-0400 Heart rate 54 /min [facility] 01-13-2024 09:21-0400 Respiratory rate 16 /min [facility] 01-13-2024 09:21-0400 SaO2% (BldA) [Mass fraction] 98 % [facility] 01-13-2024 09:21-0400 Systolic blood pressure 167 mm[Hg] [facility] 01-13-2024 08:09-0400 Body height 200.66 cm [facility] 01-13-2024 08:09-0400 Body mass index (BMI) [Ratio] 20.5 kg/m2 [facility] 01-13-2024 08:09-0400 Body weight 82.6 kg [facility] 04-15-2023 09:31-0400 Body temperature 98.5 [degF] Dr. Mook Burch Work Phone: [facility] 04-15-2023 09:31-0400 Diastolic blood pressure 85 mm[Hg] Dr. Mook Burch Work Phone: [facility] 04-15-2023 09:31-0400 Heart rate 60 /min Dr. Mook Burch Work Phone: [facility] 04-15-2023 09:31-0400 Respiratory rate 16 /min Dr. Mook Burch Work Phone: [facility] 04-15-2023 09:31-0400 SaO2% (BldA) [Mass fraction] 99 % Dr. Mook Burch Work Phone: [facility] 04-15-2023 09:31-0400 Systolic blood pressure 180 mm[Hg] Dr. Mook Burch Work Phone: [facility] 04-15-2023 07:21-0400 Body height 170.[address] Mook Burch Work Phone: [facility] 04-15-2023 07:21-0400 Body mass index (BMI) [Ratio] 28.3 kg/m2 Dr. Mook Burch Work Phone: [facility] 04-15-2023 07:21-0400 Body weight 82.[address] Mook Burch Work Phone: [facility] 12-26-2022 14:51-0500 Body mass index (BMI) [Ratio] 29.2 kg/m2 Dr. Mook Burch Work Phone: [facility] 12-26-2022 14:51-0500 Body weight 84.[address] Mook Burch Work Phone: [facility] 12-26-2022 14:51-0500 Diastolic blood pressure 76 mm[Hg] Dr. oMok Burch Work Phone: [facility] 12-26-2022 14:51-0500 Heart rate 63 /min Dr. Mook Burch Work Phone: [facility] 12-26-2022 14:51-0500 Respiratory rate 18 /min Dr. Mook Burch Work Phone: [facility] 12-26-2022 14:51-0500 SaO2% (BldA) [Mass fraction] 96 % Dr. Mook Burch Work Phone: [facility] 12-26-2022 14:51-0500 Systolic blood pressure 126 mm[Hg] Dr. Mook Burch Work Phone: [facility] 11-12-2022 15:00-0500 Body temperature 97 [degF] [facility] 11-12-2022 15:00-0500 Diastolic blood pressure 91 mm[Hg] [facility] 11-12-2022 15:00-0500 Heart rate 51 /min [facility] 11-12-2022 15:00-0500 Respiratory rate 16 /min [facility] 11-12-2022 15:00-0500 SaO2% (BldA) [Mass fraction] 98 % [facility] 11-12-2022 15:00-0500 Systolic blood pressure 189 mm[Hg] [facility] 11-12-2022 13:40-0500 Body height 170.18 cm [facility] 11-12-2022 13:40-0500 Body mass index (BMI) [Ratio] 29.2 kg/m2 [facility] 11-12-2022 13:40-0500 Body weight 84.82 kg [facility] 10-31-2021 06:41-0500 Body height 170.[address] Mook Burch Work Phone: [facility] Work Phone: 10-31-2021 06:41-0500 Body weight 82.[address] Mook Burch Work Phone: [facility] Work Phone: 10-31-2021 06:41-0500 Diastolic blood pressure 81 mm[Hg] Dr. Mook Burch Work Phone: [facility] Work Phone: 10-31-2021 06:41-0500 Heart rate 53 /min Dr. Mook Burch Work Phone: [facility] Work Phone: 10-31-2021 06:41-0500 Respiratory rate 18 /min Dr. Mook Burch Work Phone: [facility] Work Phone: 10-31-2021 06:41-0500 SaO2% (BldA) [Mass fraction] 98 % Dr. Mook Burch Work Phone: [facility] Work Phone: 10-31-2021 06:41-0500 Systolic blood pressure 136 mm[Hg] Dr. Mook Burch Work Phone: [facility] Work Phone: 09-15-2020 08:18-0500 Body mass index (BMI) [Ratio] 28.1 kg/m2 Dr. Mook Burch Work Phone: [facility] Work Phone: 09-13-2017 09:37-0500 BMI (Body Mass Index) 30.22 kg/m2 Katlin Cortes [facility] Work Phone: 09-13-2017 09:37-0500 BP Diastolic 80 mm[Hg] [facility] Work Phone: 09-13-2017 09:37-0500 BP Systolic 150 mm[Hg] [facility] Work Phone: 09-13-2017 09:37-0500 Height 170.18 cm [facility] Work Phone: 09-13-2017 09:37-0500 Pulse (Heart Rate) 58 /min [facility] Work Phone: 09-13-2017 09:37-0500 Respiratory Rate 16 /min [facility] Work Phone: 09-13-2017 09:37-0500 Weight 87.54 kg [facility] [employer] Work Phone: 09-07-2016 07:59-0500 BSA (Body Surface Area) 2 m2 [facility] [employer] Work Phone: Encounters Encounter Date Encounter Type Care Provider Facility Start: 2025 ambulatory Mook Burch Facility :[facility] Start: 03-03-2025 End: 03-03-2025 Patient encounter procedure Elizabeth Mariee Work Phone: Hematology/Oncology Start: 03-03-2025 End: 03-03-2025 ambulatory Elizabeth Mariee Work Phone: Hematology/Oncology Comment on above: Waldenstrom macroglo bulinemia (Primary Dx) Start: 02-24-2025 End: 02-24-2025 ambulatory MOOK BURCH Facility:[facility] Start: 01-16-2025 End: 01-16-2025 ambulatory Mook Burch Facility:[facility] Start: 01-12-2025 End: 01-13-2025 Telephone encounter Jeffry Arredondo DO Work Phone: Hematology/Oncology Comment on above: Patient Question Start: 01-11-2025 End: 01-11-2025 Admission to same day surgery center Dr. Gerardo Barker MD -[facility] Start: 01-11-2025 End: 01-11-[address] Mook Burch DO Work Phone: [facility] Work Phone: Start: 01-05-2025 End: 01-05-2025 ambulatory MOOK BURCH DO Facility:[facility] Start: 12-10-2024 End: 12-14-2024 ambulatory MICHELEEDA NOELLE COMMODITY DIRECTOR[employer] Facility:[facility] Start: 12-10-2024 End: 12-14-2024 Outreach Lab FRANCISCO RANGELBAR COMMODITY DIRECTOR-[employer] [facility] Start: 07-11-2024 End: 07-11-2024 ambulatory RAEGAN KELLER MD Facility:[facility] Start: 07-11-2024 End: 07-11-2024 Patient encounter procedure RAEGAN KELLER MD [facility] Start: 04-14-2024 Telephone encounter Jeffry delcid DO Work Phone: Hematology/Oncology Comment on above: Results Start: 04-14-2024 End: 04-14-2024 ambulatory MOOK BURCH Facility:[facility] Start: 02-29-2024 Telephone encounter Jeffry Cassidy ci DO Work Phone: Hematology/Oncology Comment on above: Results Start: 02-23-2024 Telephone encounter Jeffry Cassidy ci DO Work Phone: Hematology/Oncology Comment on above: Follow Up Start: 02-21-2024 End: 02-22-2024 ambulatory JEFFRY ARREDONDO DO Facility:[facility] Start: 02-21-2024 End: 02-21-2024 Patient encounter procedure JEFFRY ARREDONDO DO [facility] Start: 02-19-2024 End: 02-19-2024 ambulatory Jeffry Arredondo DO Work Phone: Hematology/Oncology Comment on above: Malignant lymphoplas macytic lymphoma (HCC) (Primary Dx) Start: 02-19-2024 End: 02-19-2024 Patient encounter procedure Jeffry Arredondo DO Work Phone: Hematology/Oncology Start: 02-12-2024 Telephone encounter Jeffry delcid DO Work Phone: Hematology/Oncology Comment on above: Appointment Start: 02-05-2024 End: 02-06-2024 ambulatory MOOK BURCH DO Facility:[facility] Start: 02-05-2024 End: 02-05-2024 Patient encounter procedure MOOK BURCH DO [facility] Start: 01-13-2024 End: 01-13-2024 Admission to same day surgery center [facility] Start: 01-13-2024 End: 01-13-2024 ambulatory [facility] Work Phone: Start: 01-03-2024 End: 01-04-2024 ambulatory RAEGAN KELLER MD Facility:[facility] Start: 08-02-2023 End: 08-03-2023 ambulatory RAEGAN KELELR MD Facility:[facility] Start: 04-15-2023 End: 04-15-2023 Admission to same day surgery center Dr. Mook Burch Work Phone: [facility] Start: 04-15-2023 End: 04-15-[address] Mook Burch Work Phone: [facility] Work Phone: Start: 04-12-2023 End: 04-12-[address] Mook Burch Work Phone: [facility] Work Phone: Start: 04-12-2023 End: 04-12-[address] Mook Burch Work Phone: [facility] Start: 02-01-2023 End: 02-01-2023 Patient encounter procedure RAEGAN KELLER MD [facility] Start: 02-01-2023 End: 02-01-2023 Well adult monitoring check done MOOK BURCH DO [facility] Start: 12-26-2022 End: 12-26-[address] Mook Burch Work Phone: [facility] Start: 11-12-2022 End: 11-12-2022 Admission to same day surgery center [facility] Start: 11-12-2022 End: 11-12-2022 ambulatory [facility] Work Phone: Start: 11-08-2022 End: 11-08-2022 ambulatory [facility] Work Phone: Start: 11-08-2022 End: 11-08-2022 Patient encounter procedure [facility] Start: 08-14-2022 End: 08-14-2022 Patient encounter procedure MOOK BURCH DO [facility] Start: 01-29-2022 End: 01-29-[address] Mook Burch Work Phone: [facility] Start: 12-18-2021 End: 12-18-[address] Mook Burch Work Phone: [facility] Start: 10-31-2021 End: 10-31-[address] Mook Burch Work Phone: [facility] Procedures Date Procedure Procedure Detail Performing Clinician Start: 01-11-2025 Local anesthetic sacral epidural block Dr. Mook Burch DO Work Phone: Start: 01-13-2024 Local anesthetic sacral epidural block Start: 01-13-2024 Injection of spinal epidural space Start: 01-13-2024 Radiography of spine Start: 04-15-2023 Injection of facet joint Dr. Mook calloway Work Phone: Start: 04-15-2023 Injection of spinal epidural space Dr. Isabel Burch Work Phone: Start: 04-15-2023 X-ray of lumbosacral spine Dr. Mook Garcia Work Phone: Start: 04-15-2023 Local anesthetic lumbar epidural block Dr. Mook Burch Work Phone: Start: 04-12-2023 MRI of lumbar spine Dr. Mook Burch Work Phone: Start: 12-26-2022 Plain chest X-ray Dr. Mook Burch Work Phone: Start: 11-12-2022 Local anesthetic sacral epidural block Start: 11-12-2022 Injection of spinal epidural space Start: 11-12-2022 Injection using fluoroscopic guidance Start: 11-08-2022 MRI of joint of lower extremity Start: 11-10-2019 Bone marrow sampling MOOK BURCH DO Start: 01-15-2019 Cholecystectomy MOOK BURCH DO Start: 09-13-2017 End: 09-13-2017 COLBY Banerjee MD Start: 09-13-2017 End: 09-13-2017 Follow Up Appt 1 year Joseph Banerjee MD Start: 03-06-2017 End: 03-06-2017 COLBY Ochoa PA-C Work Phone: Start: 03-06-2017 End: 03-06-2017 Follow Up Appt 6 months Pamela Ochoa PA-C Work Phone: Start: 09-07-2016 End: 09-19-2016 Bahman Banerjee MD Start: 09-07-2016 End: 09-07-2016 Follow Up Appt 6 months Arianna Barrientos Start: 09-07-2016 End: 09-07-2016 OSCAR Banerjee MD Start: 09-07-2016 End: 09-19-2016 Venous doppler Joseph Banerjee MD Start: 08-26-2015 End: 08-26-2015 COLBY Banerjee MD Start: 08-26-2015 End: 08-27-2015 Documentation of current medications Joseph Banerjee MD Start: 08-26-2015 End: 08-26-2015 Follow Up Appt 1 year Joseph Banerjee MD Start: 08-12-2014 End: 08-12-2014 COLBY Banerjee MD Start: 08-12-2014 End: 08-13-2014 Documentation of current medications Joseph Banerjee MD Start: 08-12-2014 End: 08-12-2014 Follow Up Appt 1 year Joseph Banerjee MD Start: 02-09-2014 End: 02-09-2014 COLBY Ochoa PA-C Work Phone: Start: 02-09-2014 End: 02-09-2014 Follow Up Appt 6 months Pamela Ochoa PA-C Work Phone: Start: 08-13-2013 End: 08-13-2013 Follow Up Appt 6 months Arianna Barrientos Start: 08-13-2013 End: 08-13-2013 OSCAR Banerjee MD Start: 05-06-2013 End: 05-06-2013 *BMP Joseph Banerjee MD Start: 05-06-2013 End: 05-06-2013 SALES ACCOUNT ASSOCIATE Joseph Banerjee MD Start: 05-06-2013 End: 01-29-2014 Ct abdomen w/contrast material Joseph estes MD Start: 05-06-2013 End: 05-06-2013 Ecg routine ecg w/least 12 lds w/i&r Joseph Banerjee MD Start: 05-06-2013 End: 05-06-2013 Follow Up Appt 3 months Arianna Barrientos Start: 10-28-2001 Cerebral hemorrhage (disorder) MOOK GARCIA DO Start: 10-28-1998 Right inguinal hernia (disorder) MOOKJOSEPH BURCH DO Aneurysm (morphologic abnormality) MOOK YAZ DO Colonoscopy MOOKJOSEPH BUCRH DO Cyst (disorder) MOOKJOSEPH SALDANA DO Comment on above: removed from right knee Esophagogastroduodenoscopy Isabel LOPEZMAJOR BURCH DO Extraction of cataract KRSAMUEL IN YAZ DO Comment on above: OU History of tonsillectomy JACKY BURCH DO Inguinal hernia (disorder) Isabel DANIELLELAY DO Malignant melanoma (disorder) MOOKJOSEPH BURCH DO Comment on above: middle upper chest Mohs surgery MOOKJOSEPH BURCH DO Comment on above: face Phacoemulsification of cataract with intraocular lens implantation MOOK BURCH DO Comment on above: left right Tonsillectomy and adenoidectomy MOOK BURCH DO Plan of Treatment Date Care Activity Detail Author Start: 04-24-2028 Urine microalbumin profile [facility] Start: 02-25-2028 Diabetes Screening Diabetes Screening [facility] Start: 04-14-2027 Diabetes Screening Diabetes Screening [facility] Start: 02-24-2027 Diabetes Screening Diabetes Screening [facility] Start: 02-18-2027 Diabetes Screening Diabetes Screening [facility] Start: 03-02-2026 End: 03-02-2026 ambulatory [facility] Laboratory Comment on above: labs OV* Start: 03-03-2025 End: 03-03-2025 ambulatory 03/03/2025 10:00 AM EDT Visit (SP) Office Hematology/Oncology [address] [place] [address] Elizabeth Mariee [address] [place] [address] OV/LABS 02/24* Hematology/Oncolog y Comment on above: OV/LABS 02/24* Start: 02-24-2025 End: 02-24-2025 ambulatory 02/24/2025 12:30 PM EDT Results Only [place] [facility] Laboratory [address] [place] [address] CBC/CMP/MYELOMA LAB [facility] Comment on above: CBC/CMP/MYELOMA LAB Start: 01-11-2025 Injection of spinal epidural space [facility] Start: 01-11-2025 Injection using fluoroscopic guidance [facility] Start: 01-11-2025 Patient discharge [facility] Start: 10-28-2024 Advance Directive Discussion Advance Directive Discussion [facility] Start: 06-28-2024 Covid-19 Vaccine ( season) Covid-19 Vaccine ( season) [facility] Start: 06-28-2024 Influenza vaccination [facility] Start: 04-14-2024 End: 04-14-2024 ambulatory 04/14/2024 10:00 AM EDT Results Only [place] [facility] Laboratory [address] [place] [address] BMP* [facility] Comment on above: BMP* Start: 02-25-2024 End: 02-25-2024 ambulatory 02/25/2024 8:00 AM EDT Results Only [facility] [address] [place] [address] labs [facility] Comment on above: labs Start: 02-23-2024 End: 05-24-2024 GANGLIOSIDE ANTIBODIES GANGLIOSIDE ANTIBODIES Lab Routine 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) Neuropathy Expected: 02/23/2024, Expires: 05/24/2024 [facility] Comment on above: Expected: 02/23/2024, Expires: Start: 02-23-2024 End: 05-24-2024 MAG IGM & SGPG IGM MAG IGM & SGPG IGM Lab Routine 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) Neuropathy Expected: 02/23/2024, Expires: 05/24/2024 [facility] Work Phone: Comment on above: Expected: 02/23/2024, Expires: Start: 02-19-2024 End: 05-20-2024 [place] ISTAT BMP [place] ISTAT BMP Lab Routine Malignant lymphoplasmacytic lymphoma (HCC) Expected: 02/19/2024, Expires: 05/20/2024 [facility] Work Phone: Comment on above: Expected: 02/19/2024, Expires: Start: 02-14-2024 End: 05-15-2024 [id number] [Mass/volume] in Serum or Plasma B2 MICROGLOBULIN Lab Routine Monoclonal gammopathy Expected: 02/14/2024, Expires: 05/15/2024 [facility] Work Phone: Comment on above: Expected: 02/14/2024, Expires: Start: 02-14-2024 End: 05-15-2024 CBC W Auto Differential panel - Blood COMPLETE BLOOD COUNT AND DIFFERENTIAL Lab STAT Monoclonal gammopathy Expected: 02/14/2024, Expires: 05/15/2024 [facility] Work Phone: Comment on above: Expected: 02/14/2024, Expires: Start: 02-14-2024 End: 05-15-2024 Comprehensive metabolic 2000 panel - Serum or Plasma COMPREHENSIVE METABOLIC PANEL Lab Routine Monoclonal gammopathy Expected: 02/14/2024, Expires: 05/15/2024 [facility] Work Phone: Comment on above: Expected: 02/14/2024, Expires: Start: 02-14-2024 End: 05-15-2024 KAPPA/STONE,FREE,SER KAPPA/STONE,FREE,SER Lab Routine Monoclonal gammopathy Expected: 02/14/2024, Expires: 05/15/2024 [facility] Work Phone: Comment on above: Expected: 02/14/2024, Expires: Start: 02-14-2024 End: 05-15-2024 Lactate dehydrogenase [Enzymatic activity/volume] in Serum or Plasma LACTATE DEHYDROGENASE Lab Routine Monoclonal gammopathy Expected: 02/14/2024, Expires: 05/15/2024 [facility] Work Phone: Comment on above: Expected: 02/14/2024, Expires: Start: 02-14-2024 End: 05-15-2024 MONOCLONAL PROTEIN, SERUM (BLOOD) MONOCLONAL PROTEIN, SERUM (BLOOD) Lab Routine Monoclonal gammopathy Expected: 02/14/2024, Expires: 05/15/2024 [facility] Work Phone: Comment on above: Expected: 02/14/2024, Expires: Start: 02-14-2024 End: 05-15-2024 PROTEIN ELECTROPHORESIS SERUM W/INTERP PROTEIN ELECTROPHORESIS SERUM W/INTERP Lab Routine Monoclonal gammopathy Expected: 02/14/2024, Expires: 05/15/2024 [facility] Work Phone: Comment on above: Expected: 02/14/2024, Expires: Start: 02-14-2024 End: 05-15-2024 SERUM VISCOSITY SERUM VISCOSITY Lab Routine Monoclonal gammopathy Expected: 02/14/2024, Expires: 05/15/2024 [facility] Work Phone: Comment on above: Expected: 02/14/2024, Expires: Start: 01-13-2024 Patient discharge [facility] Start: 10-28-2023 Advance Directive Discussion Advance Directive Discussion [facility] Start: 10-28-2023 Behavioral Health Screening Behavioral Health Screening [facility] Start: 06-28-2023 Covid-19 Vaccine () Covid-19 Vaccine () [facility] Start: 06-28-2023 Covid-19 Vaccine () Covid-19 Vaccine () [facility] Start: 04-15-2023 Fluoroscopic guidance O.R. Fluoro for C-Arm [facility] Start: 04-15-2023 Injection of facet joint [facility] Start: 04-15-2023 Injection of spinal epidural space [facility] Start: 04-15-2023 Patient discharge [facility] Start: 11-12-2022 Injection using fluoroscopic guidance [facility] Start: 11-12-2022 Njx dx/ther sbst intrlmnr lmbr/sac w/img gdn NJX INTERLAMINAR LMBR/SAC [facility] Start: 11-12-2022 Patient discharge [facility] Start: 01-21-2022 Diabetes Screening Diabetes Screening [facility] Start: 09-11-2018 End: 09-11-2018 Appointment Appointment [facility] Work Phone: Start: 09-13-2017 End: 09-13-2017 SALES ACCOUNT ASSOCIATE [facility] [employer] Work Phone: Start: 09-13-2017 End: 09-13-2017 Follow Up Appt 1 year Follow Up Appt 1 year [facility] Work Phone: Start: 09-13-2017 End: 09-13-2017 Appointment Appointment [facility] Work Phone: Start: 03-06-2017 End: 03-06-2017 SALES ACCOUNT ASSOCIATE SALES ACCOUNT ASSOCIATE [facility] Work Phone: Start: 03-06-2017 End: 03-06-2017 Follow Up Appt 6 months Follow Up Appt 6 months [facility] Work Phone: Start: 09-07-2016 End: 09-07-2016 Echocardiography Echocardiogram (complete) [facility] Work Phone: Start: 09-07-2016 End: 09-07-2016 Follow Up Appt 6 months Follow Up Appt 6 months [facility] Work Phone: Start: 09-07-2016 End: 09-07-2016 MMM MMM [facility] Work Phone: Start: 09-07-2016 End: 09-07-2016 Venous doppler Venous doppler [facility] Work Phone: Start: 08-26-2015 End: 08-26-2015 SALES ACCOUNT ASSOCIATE SALES ACCOUNT ASSOCIATE [facility] Work Phone: Start: 08-26-2015 End: 08-26-2015 Follow Up Appt 1 year Follow Up Appt 1 year [facility] Work Phone: Start: 2015 RSV Vaccine (1 - 1-dose 75+ series) RSV Vaccine (1 - 1-dose 75+ series) [facility] Start: 08-12-2014 End: 08-12-2014 SALES ACCOUNT ASSOCIATE SALES ACCOUNT ASSOCIATE [facility] Work Phone: Start: 08-12-2014 End: 08-12-2014 Follow Up Appt 1 year Follow Up Appt 1 year [facility] Work Phone: Start: 02-09-2014 End: 02-09-2014 SALES ACCOUNT ASSOCIATE SALES ACCOUNT ASSOCIATE [facility] Work Phone: Start: 02-09-2014 End: 02-09-2014 Follow Up Appt 6 months Follow Up Appt 6 months [facility] Work Phone: Start: 08-13-2013 End: 08-13-2013 Follow Up Appt 6 months Follow Up Appt 6 months [facility] Work Phone: Start: 08-13-2013 End: 08-13-2013 MMM MMM [facility] Work Phone: Start: 05-06-2013 End: 05-06-2013 *BMP *BMP [facility] Work Phone: Start: 05-06-2013 End: 05-06-2013 SALES ACCOUNT ASSOCIATE SALES ACCOUNT ASSOCIATE [facility] Work Phone: Start: 05-06-2013 End: 05-06-2013 Ct abdomen w/contrast material CT Abdomen with Contrast [facility] Work Phone: Start: 05-06-2013 End: 05-06-2013 Ecg routine ecg w/least 12 lds w/i&r EKG (In office) [facility] Work Phone: Start: 05-06-2013 End: 05-06-2013 Follow Up Appt 3 months Follow Up Appt 3 months [facility] Work Phone: Start: 11-28-2009 Shingrix Vaccine (2 of 3) Shingrix Vaccine (2 of 3) [facility] Start: 2000 RSV Vaccine (1 - 1-dose 60+ series) RSV Vaccine (1 - 1-dose 60+ series) [facility] Start: 1958 Anxiety Screening Anxiety Screening [facility] Start: 1958 Depression Screening Depression Screening [facility] Patient referral [facility] Work Phone: [facility] Immunizations Immunization Date Immunization Notes Care Provider [facility] 08-20-2024 influenza, high dose seasonal, preservative-free; Translations: [Fluad PF Prefilled Syringe ] FRANCISCO DRAKE COMMODITY DIRECTOR-TELLER HEAD [facility] 08-30-2023 influenza, high dose seasonal, preservative-free; Translations: [Fluad Quadrivalent PF ] MOOK BURCH DO [facility] 08-30-2023 influenza virus vacc ine, unspecified formulation Jeffry Masci DO Work Phone: [facility] 08-10-2022 influenza, high dose seasonal, preservative-free MOOK BURCH DO [facility] 02-22-2022 COVID-19, mRNA, LNP- S, PF, 100 mcg or 50 mcg dose; Translations: [Moderna COVID-19 Vaccine] MOOK BURCH DO [facility] 11-10-2021 influenza, high dose seasonal, preservative-free; Translations: [Fluad Quadrivalent PF ] MOOK BURCH DO [facility] 08-19-2021 SARS-CoV-2 (COVID-19 ) mRNA-1273 vaccine MOOK BURCH DO [facility] 03-06-2021 zoster vaccine recombinant MOOK BURCH DO [facility] 12-15-2020 Cesarid (Moderna) Dr. Mook Burch Work Phone: [facility] 11-17-2020 Kiara (Moderna) Dr. Mook Burch Work Phone: [facility] Comment on above: Result Comment: 2020: [id number] 10-10-2020 zoster vaccine recombinant MOOK BURCH DO [facility] 07-08-2020 influenza virus vacc ine, unspecified formulation MOOK BURCH DO [facility] 08-19-2019 influenza, injectabl e, quadrivalent, preservative free; Translations: [Fluarix PF Quadrivalent ] MOOK BURCH DO [facility] 08-19-2019 influenza virus vacc ine, unspecified formulation Jeffry Arredondo DO Work Phone: [facility] 08-07-2018 influenza virus vacc ine, unspecified formulation MOOK YAZ DO [facility] Jaron Begum M.D. 04-24-2018 tetanus and diphther ia toxoids, adsorbed, preservative free, for adult use (5 Lf of tetanus toxoid and 2 Lf of diphtheria toxoid) MOOK BURCH DO [facility] Jaron Begum M.D. 08-07-2017 influenza virus vacc ine, unspecified formulation MOOK BURCH DO [facility] 07-10-2016 influenza virus vacc ine, unspecified formulation MOOK BURCH DO [facility] 11-08-2015 influenza virus vacc ine, unspecified formulation MOOK BURCH DO [facility] 04-12-2015 pneumococcal conjuga te vaccine, 13 valent MOOK BURCH DO [facility] Jaron Begum M.D. 09-07-2014 influenza virus vacc ine, unspecified formulation MOOK BURCH DO [facility] 08-25-2013 pneumococcal polysaccharide vaccine, 23 valent MOOK DANIELLELAY DO [facility] 08-04-2013 influenza virus vacc ine, unspecified formulation MOOK BURCH DO [facility] 08-25-2012 pneumococcal polysaccharide vaccine, 23 valent MOOK BURCH DO [facility] Jaron Begum M.D. 10-03-2009 zoster vaccine, live MOOK BURCH DO [facility] Jaron Begum M.D. Payers Date Payer Category Payer Self-pay [id number] 2023 [place] [id number] 2018 Medicare [id number] 2018 Unknown [id number] 2016 Medicare [id number] 1940 Unknown [id number] 2. 1940 Unknown [id number]. 2. 1940 Unknown [id number]. 2 1940 Unknown [id number]. 2. 1940 Unknown [id number]. 2. 1940 Unknown [id number] [id number] 1940 Unknown [id number]. [id number] 1940 Unknown [id number] [id number] Medicare MEDICARE PART A B [id number] Unknown [id number] Unknown [id number] Unknown [id number] [id number] Social History Date Type Detail Facility Start: 10-31-2021 End: 12-26-2022 Tobacco smoking status [facility] Unknown if ever smoked [facility] Start: 1940 Sex Assigned At Male A [facility] Start: 11-27-2019 End: 12-08-2019 Tobacco smoking status Ex-smoker (finding) [facility] Comment on above: quit in 1978 Start: 10-28-1949 End: 10-28-1974 History of tobacco use Current smoker [facility] Start: [birth year]-28-1949 End: 10-28-1974 History of tobacco use Cigarette Smoker [facility] Start: 11-27-2019 End: 02-19-2024 Cigarettes smoked current (pack per day) - Reported 1 [facility] Start: 11-27-2019 Tobacco use and exposure Smokeless tobacco non-user [facility] Start: 05-27-2020 End: 03-03-2025 Alcohol intake Current drinker of alcohol (finding) [facility] Start: 05-27-2020 End: 02-19-2024 Tobacco use panel [facility] National Score (1-10 0), lower number is lower risk Not on file [facility] Start: 10-22-2019 Alcohol Comment occassionally [facility] Start: 1940 Sex Assigned At Not on file [facility] Sexual Orientation Corinne H nelia [facility] Start: 04-22-2019 End: 01-11-2025 Sex Male (finding) [facility] Goals Date Patient Goal Desired Activity /State Functional Status Date Assessment Result Facility 04-15-2023 Functional status Ambulates [facility] Work Phone: Mental Status Date Assessment Result Facility 01-11-2025 Cognitive function Voice/Name [facility] Work Phone: 01-13-2024 Cognitive function Voice/Name [facility] Work Phone: 04-15-2023 Cognitive function Voice/Name [facility] Work Phone: 11-12-2022 Cognitive function Voice/Name [facility] Work Phone: Clinical Notes 11-12-2022 to 03-03-2025 Elizabeth Mariee - 03/03/2025 9:54 AM EDTTelephone Encounter - [facility] - 01/13/2025 2:05 PM EDTTelephone Encounter - [facility] [place] - 01/13/2025 2:05 PM EDT Note Date & Type Note Facility 03-03-2025 Note HNO ID: [id number] Author: ELIZABETH MARIEE, ? Service: ? Author Type: Nurse Practitioner Type: Progress Notes Filed: 03/03/2025 12:33 Note Text: Coral Rachelle 1940 03/03/2025 Diagnoses: 1) Waldenstrom's macroglobulinemia. 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 HPI: The patient is an 83-year-old male who has a past medical history significant for brain aneurysm (cauterized at [place] about 17 years ago), hypercholesterolemia, HTN, vitamin D deficiency, GERD, BPH and chronic kidney disease. He has a history of stage III chronic kidney disease associated with proteinuria. In the fall of 2017 he was found to have 1.2 g per day proteinuria. He has a history of lower extremity edema for which he was on Lasix periodically. He also reportedly had an M spike quantitated at 0.38 g/dL in May 2019. Serum creatinine had been stable at about 1. 31.4 mg/dL since 2016 with a transient increase of uptake 1.61 g/dL in June 2017 and the most recent value of 1.57 mg/dL on 06/09/2019. Patient had serum protein electrophoresis as well as immunofixation on 09/30/2019. There was a decrease in total IgG at 558 mg/dL (normal range 700-1600 mg/dL) with an increase in IgM quantitated at 920 mg/dL (normal range 15-143 mg/dL). Serum IgA level was normal. M spike was quantitated at 0.4 g/dL. Immunofixation demonstrated IgM kappa monoclonal protein. Spot urine sample was negative for monoclonal protein by electrophoresis but the immunofixation result was noted to be unclear at this time per the reference laboratory. Bone marrow biopsy performed on 11/11/2019 revealed a mildly hypercellular bone marrow. Mild increased stainable iron without ring sideroblasts was observed. Benign lymphoid aggregate, microscopic. There was no evidence of plasma cell dyscrasia. There was by flow cytometry an abnormal monoclonal B-cell population comprising 2% of the total cells with slight Restriction. MYD88/L265P mutation was positive. Cytogenetics 46 XY normal male karyotype. Ultrasound the liver and the spleen (done due to his elevated creatinine precluding safe use of IV contrast for CT) demonstrated a liver cyst. There was increased echogenicity of the kidneys bilaterally raising concern for medical renal disease. Multiple bilateral renal cysts were observed the common bile duct and pancreas were not well visualized. Spleen size was normal. Liver texture was homogeneous and echogenicity was normal with a smooth surface contour. Serum cryoglobulins negative. 24-hour urine collection revealed no evidence of M spike. The total 24-hour protein was 973 mg in 24 hours. Immunofixation of the 24-hour urine collection was noted to be presence of monoclonal protein is unclear at this time suggest repeat in 3-6 months if clinically indicated. Presents for ongoing oncologic management. Interim history: I feel pretty good Getting injections for herniated disc yearly - has appt coming up. This has relieved pain in the past. Denies new issues. No new lumps or bumps, aches or pains. No SOB, CP, Palpitations. No changes in bowel or bladder habits. No unintentional weight loss. Denies fevers, chills or NS. PMH, medications and allergies personally reviewed by me today. Any changes documented in appropriate section. ROS: All systems reviewed on 03/03/2025 with pertinent positives and negatives as outlined in the interval history. PHYSICAL EXAM: Vitals: Blood pressure 120/71, pulse 64, temperature 36.1 ?C (97 ?F), temperature source Temporal, weight 86.9 kg (191 lb 8 oz), SpO2 96%. Well-appearing and in no acute distress. EYES: Sclerae are anicteric bilaterally. LYMPHATIC: There is no palpable cervical, supraclavicular or axillary adenopathy. RESPIRATORY: Inspiratory breath sounds are of normal intensity. No rales, wheezes or rhonchi. CARDIOVASCULAR: Rhythm is regular. ABDOMEN: The abdomen is nondistended. No organomegaly. I have performed the physical exam today (03/03/2025) and have edited the note to correlate with current findings. 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 Clemente for chronic kidney disease. In December of 2018 the serum creatinine was 1.37 mg/dL. He was found to have an IgM kappa monoclonal protein quantitated at 0.4 g/dL in the serum on protein electrophoresis 10/01/2019. 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 -24-hour urine for electrophoresis and immunofixation demonstrated no evidence of monoclonal protein by electrophoresis b (more content not included)... [facility] 03-03-2025 History of Presen t illness Narrative Coral Bush 1940 03/03/2025 Diagnoses: 1) Waldenstrom's macroglobulinemia. 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 HPI: The patient is an 83-year-old male who has a past medical history significant for brain aneurysm (cauterized at [place] about 17 years ago), hypercholesterolemia, HTN, vitamin D deficiency, GERD, BPH and chronic kidney disease. He has a history of stage III chronic kidney disease associated with proteinuria. In the fall of 2017 he was found to have 1.2 g per day proteinuria. He has a history of lower extremity edema for which he was on Lasix periodically. He also reportedly had an M spike quantitated at 0.38 g/dL in May 2019. Serum creatinine had been stable at about 1. 31.4 mg/dL since 2015 with a transient increase of uptake 1.61 g/dL in June 2017 and the most recent value of 1.57 mg/dL on 06/09/2019. Patient had serum protein electrophoresis as well as immunofixation on 09/30/2019. There was a decrease in total IgG at 558 mg/dL (normal range 700-1600 mg/dL) with an increase in IgM quantitated at 920 mg/dL (normal range 15-143 mg/dL). Serum IgA level was normal. M spike was quantitated at 0.4 g/dL. Immunofixation demonstrated IgM kappa monoclonal protein. Spot urine sample was negative for monoclonal protein by electrophoresis but the immunofixation result was noted to be unclear at this time per the reference laboratory. Bone marrow biopsy performed on 11/11/2019 revealed a mildly hypercellular bone marrow. Mild increased stainable iron without ring sideroblasts was observed. Benign lymphoid aggregate, microscopic. There was no evidence of plasma cell dyscrasia. There was by flow cytometry an abnormal monoclonal B-cell population comprising 2% of the total cells with slight Restriction. MYD88/L265P mutation was positive. Cytogenetics 46 XY normal male karyotype. Ultrasound the liver and the spleen (done due to his elevated creatinine precluding safe use of IV contrast for CT) demonstrated a liver cyst. There was increased echogenicity of the kidneys bilaterally raising concern for medical renal disease. Multiple bilateral renal cysts were observed the common bile duct and pancreas were not well visualized. Spleen size was normal. Liver texture was homogeneous and echogenicity was normal with a smooth surface contour. Serum cryoglobulins negative. 24-hour urine collection revealed no evidence of M spike. The total 24-hour protein was 973 mg in 24 hours. Immunofixation of the 24-hour urine collection was noted to be presence of monoclonal protein is unclear at this time suggest repeat in 3-6 months if clinically indicated. Presents for ongoing oncologic management. Interim history: I feel pretty good Getting injections for herniated disc yearly - has appt coming up. This has relieved pain in the past. Denies new issues. No new lumps or bumps, aches or pains. No SOB, CP, Palpitations. No changes in bowel or bladder habits. No unintentional weight loss. Denies fevers, chills or NS. PMH, medications and allergies personally reviewed by me today. Any changes documented in appropriate section. ROS: All systems reviewed on 03/03/2025 with pertinent positives and negatives as outlined in the interval history. PHYSICAL EXAM: Vitals: Blood pressure 120/71, pulse 64, temperature 36.1 C (97 F), temperature source Temporal, weight 86.9 kg (191 lb 8 oz), SpO2 96%. Well-appearing and in no acute distress. EYES: Sclerae are anicteric bilaterally. LYMPHATIC: There is no palpable cervical, supraclavicular or axillary adenopathy. RESPIRATORY: Inspiratory breath sounds are of normal intensity. No rales, wheezes or rhonchi. CARDIOVASCULAR: Rhythm is regular. ABDOMEN: The abdomen is nondistended. No organomegaly. I have performed the physical exam today (03/03/2025) and have edited the note to correlate with current findings. 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 Clemente for chronic kidney disease. In December of 2018 the serum creatinine was 1.37 mg/dL. He was found to have an IgM kappa monoclonal protein quantitated at 0.4 g/dL in the serum on protein electrophoresis 10/01/2019. -Workup demonstrated Waldenstr m's macroglobulinemia with very low level lymphoplasmacytic lymphoma clinically manifested only in the bone marrow representing 2% of the total cells in the flow cytometry specimen obtained from the aspirate. -24-hour urine for electrophoresis and immunofixation demonstrated no evidence of monoclonal protein by electrophoresis but immunofixation was indeterminant as it was on spot urine analysis in September 2019. However serum creatinine was 1.38 mg/dL when measured on 10/22/2019 suggesting stable chronic kidney disease. -Didn't follow up. -Reviewed recent labs with patient today, overall stable to somewhat improved from last year. 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 Plan: - Labs - CBC/CMP/MYELOMA LABS - OV in [address] Arredondo Advised to call with any questions or concerns in the meantime. Elizabeth Mariee APRN.TELLER HEAD I spent a total of 30 minutes on the date of the service which included preparing to see the patient, [id number] patient care, completing clinical documentation, obtaining and/or reviewing separately obtained history, performing a medically appropriate examination, and ordering medications, tests, or procedures. Portions of this note including HPI, ROS, impression/plan may have been copied forward as to provide important historical information essential in contributing to medical decision making. Documentation has been reviewed and edited as necessary to support clinical decision making for today's visit and to reflect my own independent evaluation of this patient. documented in this encounter [facility] 01-13-2025 Telephone encounter Note Scheduled with patient [facility] Work Phone: 01-13-2025 Miscellaneous Notes Scheduled with patient 1st attempt. Spoke with spouse. Patient is resting and will call back to schedule appointments in . lab - CBC/CMP/MYELOMA LAB then Office Visit with Elizabeth . Yes CBC/CMP/Myeloma labs then OV with Elizabeth in . Jeffry Arredondo DO Last OV 02/19/2024- Plan: -Labs -Hydrate and recheck BMP this Saturday. -Will check neuropathy associated antibodies. Patient called asking if labs and office visit are needed for this year. Please advise. documented in this encounter [facility] 01-13-2025 Telephone encounter Note 1st attempt. Spoke with spouse. Patient is resting and will call back to schedule appointments in . lab - CBC/CMP/MYELOMA LAB then Office Visit with Elizabeth . [facility] 01-12-2025 Telephone encounter Note Yes CBC/CMP/Myeloma labs then OV with Elizabeth in . Jeffry Arredondo DO [facility] 01-12-2025 Telephone encounter Note Last OV 02/19/2024- Plan: -Labs -Hydrate and recheck BMP this Saturday. -Will check neuropathy associated antibodies. [facility] 01-12-2025 Telephone encounter Note Patient called asking if labs and office visit are needed for this year. Please advise. [facility] 01-11-2025 Consult note [facility] 01-11-2025 Consult note [facility] 01-11-2025 Procedure note [facility] 01-11-2025 Consult note [facility] 12-11-2024 Note . MICRO - Microbiology PROCEDURE: Urine Culture [*1] SOURCE: Urine, Clean Catch BODY SITE: COLLECTED DATE/TIME: 12/10/2024 08:43 EST RECEIVED DATE/TIME: 12/10/2024 15:36 EST START DATE/TIME: 12/10/2024 15:36 EST FREE TEXT SOURCE: FINAL REPORTS Final Report [] Verified Date/Time/Personnel: 12/11/2024 14:24 EST 50,000 - 100,000 cfu/ml Multiple bacterial morphotypes present. Probable Contamination. Suggest recollection if clinically indicated. Performing Locations *1: This test was performed at: [facility], [address] [place] [address], [id number] , [facility] 04-15-2024 Telephone encounter Note Patient called back and was relayed the below information and stated understanding. Shiloh Romano [facility] 04-15-2024 Miscellaneous Notes Patient called back and was relayed the below information and stated understanding. Shiloh Romano Message left for patient to contact office. Suzi Fuller LPN ----- Message from Jeffry Arredondo DO sent at 04/14/2024 12:55 PM EDT ----- Can let him know kidney function is stable compared to a month ago and much better than it was when I saw him for office visit on February 18. Continue to hydrate well and follow-up as scheduled. documented in this encounter [facility] 04-14-2024 Telephone encounter Note Message left for patient to contact office. Suzi Fuller LPN [facility] 04-14-2024 Telephone encounter Note ----- Message from Jeffry Arredondo DO sent at 04/14/2024 12:55 PM EDT ----- Can let him know kidney function is stable compared to a month ago and much better than it was when I saw him for office visit on February 18. Continue to hydrate well and follow-up as scheduled. [facility] 03-02-2024 Telephone encounter Note Lab scheduled as directed. Ne Zamora [facility] 03-02-2024 Miscellaneous Notes Lab scheduled as directed. Ne Zamora Pt.. notified of lab results, recheck BMP in 6 weeks. PT. Voiced understaidng. PSS please put on lab schedule for 04/14@ 10:00 AM. Pt. aware Mariza Clemens LPN Can let him know all lab work looks good. Kidney function better. Stay well hydrated. Recheck BMP in about 6 weeks or so. Jeffry Arredondo DO documented in this encounter [facility] 03-02-2024 Telephone encounter Note Pt.. notified of lab results, recheck BMP in 6 weeks. PT. Voiced understaidng. PSS please put on lab schedule for 04/14@ 10:00 AM. Pt. aware Mariza Clemens LPN [facility] 02-29-2024 Telephone encounter Note Can let him know all lab work looks good. Kidney function better. Stay well hydrated. Recheck BMP in about 6 weeks or so. Jeffry Arredondo DO [facility] 02-24-2024 Telephone encounter Note Patient will be in tomorrow for labs. [facility] Work Phone: 02-24-2024 Miscellaneous Notes Patient will be in tomorrow for labs. Message left on patient's VM to contact office to schedule labs. Suzi Fuller LPN Since he can get labs through [facility], I'd like to check some other labs. Jfefry Arredondo DO documented in this encounter [facility] 02-24-2024 Telephone encounter Note Message left on patient's VM to contact office to schedule labs. Suzi Fuller LPN [facility] 02-23-2024 Telephone encounter Note Since he can get labs through [facility], I'd like to check some other labs. Jeffry Arredondo DO [facility] 02-19-2024 History of Present illness Narrative Diagnoses: 1) Waldenstrom's macroglobulinemia. 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 HPI: The patient is an 83-year-old male who has a past medical history significant for brain aneurysm (cauterized at [place] about 17 years ago), hypercholesterolemia, HTN, vitamin D deficiency, GERD, BPH and chronic kidney disease. He has a history of stage III chronic kidney disease associated with proteinuria. In the fall of 2017 he was found to have 1.2 g per day proteinuria. He has a history of lower extremity edema for which he was on Lasix periodically. He also reportedly had an M spike quantitated at 0.38 g/dL in May 2019. Serum creatinine had been stable at about 1. 31.4 mg/dL since 2015 with a transient increase of uptake 1.61 g/dL in June 2017 and the most recent value of 1.57 mg/dL on 06/09/2019. Patient had serum protein electrophoresis as well as immunofixation on 09/30/2019. There was a decrease in total IgG at 558 mg/dL (normal range 700-1600 mg/dL) with an increase in IgM quantitated at 920 mg/dL (normal range 15-143 mg/dL). Serum IgA level was normal. M spike was quantitated at 0.4 g/dL. Immunofixation demonstrated IgM kappa monoclonal protein. Spot urine sample was negative for monoclonal protein by electrophoresis but the immunofixation result was noted to be unclear at this time per the reference laboratory. Bone marrow biopsy performed on 11/11/2019 revealed a mildly hypercellular bone marrow. Mild increased stainable iron without ring sideroblasts was observed. Benign lymphoid aggregate, microscopic. There was no evidence of plasma cell dyscrasia. There was by flow cytometry an abnormal monoclonal B-cell population comprising 2% of the total cells with slight Restriction. MYD88/L265P mutation was positive. Cytogenetics 46 XY normal male karyotype. Ultrasound the liver and the spleen (done due to his elevated creatinine precluding safe use of IV contrast for CT) demonstrated a liver cyst. There was increased echogenicity of the kidneys bilaterally raising concern for medical renal disease. Multiple bilateral renal cysts were observed the common bile duct and pancreas were not well visualized. Spleen size was normal. Liver texture was homogeneous and echogenicity was normal with a smooth surface contour. Serum cryoglobulins negative. 24-hour urine collection revealed no evidence of M spike. The total 24-hour protein was 973 mg in 24 hours. Immunofixation of the 24-hour urine collection was noted to be presence of monoclonal protein is unclear at this time suggest repeat in 3-6 months if clinically indicated. Presents for ongoing oncologic management. Interim history: Good appetite. Exercised on treadmill 1/2 hour this morning. Didn't drink any water. No MS pain. Had epidural injection for right sided sciatica early December. Relieved pain. PMH, medications and allergies personally reviewed by me today. Any changes documented in appropriate section. ROS: Constitutional: See above. Neuro: Denies LU, vertigo and dizziness. Mild chronic imbalance. Numbness balls of feet for several years--continues to be stable. HEENT: No recent change in voice, vision or hearing. Resp: Denies cough, wheeze and hemoptysis. Denies shortness of breath at rest. Denies FINCH. CVS: Denies exertional chest pain, PND, orthopnea, swelling/edema. No symptoms of Raynaud's. GI: Denies dysgeusia. Denies symptoms of stomatitis. Denies dysphagia and odynophagia. Chronic reflux--EGD several years ago-esophagitis--received a course of PPI. Denies n/v, change in bowel habits and abdominal pain. : See above. Endo: Denies hot flashes. Denies polyuria and polydipsia. Denies heat and cold intolerance. Musculoskeletal: Chronic low back pain for which he received b/l epidural injections--both really helped.. Derm: Denies rash. Denies jaundice and diffuse pruritis. Heme: Denies unusual bleeding and unexplained bruising. Bruises easily on backs of forearms. Psych: Normal mood. PHYSICAL EXAM: Vitals: Blood pressure 122/74, pulse 65, temperature 36.3 C (97.4 F), temperature source Temporal, height 167 cm (5' 5.75), weight 84.6 kg (186 lb 8 oz), SpO2 95%. Well-appearing and in no acute distress. EYES: Sclerae are anicteric bilaterally. LYMPHATIC: There is no palpable cervical, supraclavicular or axillary adenopathy. RESPIRATORY: Inspiratory breath sounds are of normal intensity in all [place]. No rales, wheezes or rhonchi. CARDIOVASCULAR: Rhythm is regular. ABDOMEN: The abdomen is nondistended. No organomegaly. ASSESSMENT/PLAN: (D47.2) IgM monoclonal gammopathy of uncertain significance (primary encounter diagnosis) (N18.3) Chronic kidney disease, stage 3, mod decreased GFR (HCC) Assessment: -In summary the patient is an 83-year-old male who had been under the care of Dr. Clemente for chronic kidney disease. In December of 2018 the serum creatinine was 1.37 mg/dL. He was found to have an IgM kappa monoclonal protein quantitated at 0.4 g/dL in the serum on protein electrophoresis 10/01/2019. -Workup demonstrated Waldenstr m's macroglobulinemia with very low level lymphoplasmacytic lymphoma clinically manifested only in the bone marrow representing 2% of the total cells in the flow cytometry specimen obtained from the aspirate. -24-hour urine for electrophoresis and immunofixation demonstrated no evidence of monoclonal protein by electrophoresis but immunofixation was indeterminant as it was on spot urine analysis in September 2019. However serum creatinine was 1.38 mg/dL when measured on 10/22/2019 suggesting stable chronic kidney disease. -Didn't follow up. 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 -No labs in a while. -ISAIAH. Perhaps dehydration. Plan: -Labs -Hydrate and recheck BMP this Saturday. -Will check neuropathy associated antibodies. Portions of this documentation were copied and pasted from previous office visit notes in order to provide a cohesive continuity of the history. The note has been reviewed and edited and updated as necessary. I spent a total of 30 minutes on the date of the service which included preparing to see the patient, [id number] patient care, completing clinical documentation, obtaining and/or reviewing separately obtained history, performing a medically appropriate examination, counseling and educating the patient/family/caregiver, ordering medications, tests, or procedures, and communicating results to the patient/family/caregiver. Jeffry Arredondo DO documented in this encounter [facility] 02-14-2024 Miscellaneous Notes Orders filed. He does not need urine testing. Jeffry Arredondo DO Spoke with patient and scheduled. Ne Zamora Labs pended. Schedule est complex. Chart given to PSR to schedule. Lauryn Ward LPN Additional lab received. Chart placed in Dr. Arredondo's mailbox for review. Suzi Fuller LPN Received CBC/lipid panel/Hep C. Faxed a request to PCP office asking for lab results r/t monoclonal gammopathy diagnosis. Suzi Fuller LPN Patient hasn't been seen here since 05/27/2020. He was supposed to follow up 04/2022 and never scheduled. I called and spoke with the patient. He hasn't seen another hem/onc physician since last here. I updated his PCP in [facility]. Will await labs. Suzi Fuller LPN Patient called stating lab results will be faxed to [facility] from [facility]. He was informed to schedule appointment with Dr. Arredondo. Patient was last in office 05/27/2020. documented in this encounter [facility] 01-13-2024 Procedure note [facility] 04-15-2023 Procedure note [facility] 11-12-2022 Procedure note [facility] Consult note Note Date/Time January 11, 2025 9:16am [facility] Medical Records Department [address] [place] [address] Pre-Anesthesia Evaluation 01/11/25 0906 MR#: [id number] Acct: [id number] Name: CORAL BUSH Rep #:[id number] : 1940 84 From: Kenton Mireles MD PCP: Dr. Mook Burch, DO Status:REG [facility] Y Race: C Location: [facility] ASA Classification* ASA Classification ASA Classification: 2 Assessment & Plan Anesthesia* Anesthesia Assessment Anesthesia Assessment: Discussed sedation and/or anesthesia options, risks, benefits, and alternatives with patient/parents/legal guardian/POA. Questions invited. The patient/parents/legal guardian/POA seems to understand and agrees to proceedwith anesthesia plan. Reviewed the physical assessment, medical history, allergy history and patient home medications list prior to surgery/procedure/anesthetic and documented any changes. Performed airway and anesthesia risk assessments. Anesthesia Type Anesthesia Type: MAC History Source History Obtained from:: Patient and Chart Anesthesia Focused Assessment* Temperature: 97.1 F Pulse Rate: 57 Blood Pressure: 166/69 Respiratory Rate: 18 Pulse Ox: 99 Oxygen Delivery Method: Room Air Airway Assessment Mouth opens: >3 cm Mallampati Score: III Teeth Condition: Caps/Crowns (Patient has several crowns. They are tight.) Neck Range of motion (ROM): Limited ROM Focused Labs Anesthesia Preop lab: CBC WBC 4.7 K/mm3 (4.4-11.0) 01/29/22 09:01/29/22 RBC 4.39 M/mm3 (4.6-6.2) L 01/29/22 09:01/29/22 Hgb 14.1 g/dL (13.0-16.5) 01/29/22 09:01/29/22 Hct 40.2 % (40-54) 01/29/22 09:01/29/22 Plt Count 125 K/mm3 (150-450) L 01/29/22 09:01/29/22 CHEMISTRY Potassium 3.5 mmol/L (3.5-5.1) 01/29/22 09:01/29/22 Sodium 139 mmol/L (136-145) 01/29/22 09:01/29/22 Magnesium 2.0 mg/dL (1.6-2.6) 01/29/22 09:01/29/22 Phosphorus 3.5 mg/dL (2.5-4.9) 01/29/22 09:33 01/29/22 BUN 45 mg/dL (7-18) H 01/29/22 09:33 01/29/22 Creatinine 1.61 mg/dL (0.70-1.30) H 01/29/22 09:33 Glucose 99 mg/dL (74-106) 01/29/22 09:33 01/29/22 TSH 0.74 uIU/mL (0.358-3.74) 12/24/20 07:35 COAG PT 14.4 SECONDS (11.7-14.9) 10/22/19 11:58 Pre-Assessment Diagnosis/Proposed Procedure Planned Operative Procedure(s): CAUDAL BLOCK Anesthesia History Anesthesia History - shoemaker custom: Anesthesia History - shoemaker custom Hx Hospitalization No 01/08/25 11:46 Any Problems With Anesthesia No 01/08/25 11:46 Cholinesterase deficiency No 01/08/25 11:46 You/Your Family Experience No 01/08/25 11:46 fever (hyperthermia) with Relationship Recent Exposure to Contagious No 01/11/25 07:54 Disease Does patient have nerve No 01/08/25 11:46 stimulator Patient instructed to have device shut off --Does patient have Pacemaker No 01/11/25 07:54 or ICD? When Was Last Pacemaker Check QUESTION #4 FULL TEXT: You/Your Family Experience fever (hyperthermia) with Anesthesia Last Oral Intake Last Oral intake: Last Oral Intake NPO since 22:00 01/11/25 07:54 Meds taken in AM with sips of water? Meds patient instructed to take am of surgery Any additional information?: Yes Meds taken in AM with sips of water?: Yes PONV PONV - shoemaker custom: PONV - shoemaker custom Female No 01/08/25 11:46 HX of Motion Sickness No 01/08/25 11:46 HX of N/V After Surgery No 01/08/25 11:46 Non-Smoker Yes 01/08/25 11:46 Duration of Surgery greater No 01/08/25 11:46 than 60 minutes Number of Risk Factors 1 01/08/25 11:46 PONV Score Low Risk 01/08/25 11:46 Height & Weight Height & Weight: Anesthesia: Height & Weight Height 5 ft 7 in 01/11/25 07:54 Weight: 85.2 kg 01/11/25 07:54 Body Mass Index (BMI) 29.4 01/11/25 07:54 Respiratory Assessment Respiratory Assessment - shoemaker custom: Respiratory Tract Infection Hx - shoemaker custom Hx Respiratory Tract Infection No 01/08/25 11:46 STOP Sleep Apnea STOP Sleep Apnea - shoemaker custom: STOP Sleep Apnea - shoemaker custom Hx Hypertension Yes: CONTROLLED ON MED 01/08/25 11:46 Hx Sleep Apnea No 01/08/25 11:46 CPAP BIPAP Do you snore loudly (louder No 01/08/25 11:46 than talking or can be heard Do you often feel tired/ No 01/08/25 11:46 fatigued/ sleepy during daytime? Has anyone observed you stop No 01/08/25 11:46 breathing during sleep? STOP Results Negative 01/08/25 11:46 QUESTION #5 FULL TEXT : Do you snore loudly (louder than talking or can be heard through closed doors)? 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 Specify any problems Hx of Preganancy in last 3 N/A 01/08/25 11:46 Months Nurse Filling Out Transfusion NBUCHER 01/08/25 11:46 & Questions: Date: 01/08/25 01/08/25 11:46 Time: 11:48 01/08/25 11:46 Patient unable to answer at this time (ie. confused, unrespo /Reproduction History /Reproductive History - shoemaker custom: /Reproductive Hx- shoemaker custom Hx Now Gestational Age (in weeks): EDC: Hx Hx Para Hx Section SAB [facility] Medical History Macular hole Mitral valve regurgitation History of steroid therapy Arthritis High cholesterol Non-smoker History of edema Cardiology follow-up encounter Wears glasses Cancer Alcohol use Easy bruising Brain aneurysm History of renal disease Asthma Obesity HLD (hyperlipidemia) Essential (primary) hypertension Spinal stenosis of lumbosacral region Degeneration of intervertebral disc of lumbosacral region Radiculopathy of lumbosacral region Home Medications ?Medication ?Instructions ?Recorded ?Last Taken ?Type cholecalciferol (vitamin D3) 50 2,000 unit PO DAILY 01/10/25 History mcg (2,000 unit) capsule fluticasone propionate 220 1 puff inhalation BID 09/3001/09/25 History mcg/actuation HFA aerosol inhaler (Flovent HFA) metoprolol tartrate 100 mg tablet 100 mg PO BID 01/11/25 History saw palmetto 450 mg capsule 450 mg PO BID 09/30/17 History simvastatin 10 mg tablet 10 mg PO MOWEFR 09/30/17 History doxazosin 4 mg tablet (Cardura) 4 mg PO QHS 09/15/19 0 01/10/25 History lisinopril 40 mg tablet 60 mg PO DAILY 11/11/2012/26 History vitamins A,C,H-kgan-izstrz 2,148 2 tab PO BID 12/26/22 01/10/25 History mcg-113 mg-45 mg-17.4 mg tablet (PreserVision AREDS) chlorthalidone 25 mg tablet 12.5 mg PO DAILY 04/15/23 01/10/25 History Allergy/AdvReac Type Severity Reaction Status Date / Time ciprofloxacin (From Cipro) Allergy Swelling Verified 01/11/25 07:53 Family History Father CVA (cerebral vascular accident) Brother CAD (coronary artery disease) CVA (cerebral vascular accident) Mother CVA (cerebral vascular accident) Surgical History History of cholecystectomy Hx of colonoscopy History of hernia repair Social History Smoking Status: Former smoker alcohol intake: never Review of Systems (Anesthesia) ROS Narrative System reviewed and no additional complaints, except as documented. 01/11/25915 <Electronically signed by Kenton unger MD> Date _ Kenton Mireles MD Cosigner Signature: Date CC: ~ Signed [facility] Work Phone: Consult note Author [facility] [place] [facility] Note Date/Time January 11, 2025 10: 28am [facility] Medical Records Department [address] [place] [address] Anesthesia Postop Eval I 01/11/25956 MR#: [id number] Acct: [id number] Name: CORAL BUSH Rep #:[id number] : 1940 84 From: Shannon Crews CRNA PCP: Dr. Mook Burch, DO Status:REG [facility] Y Race: C Location: [facility] Anesthesia: Postop Eval I Current Vital Signs Temperature: 98.3 F Pulse Rate: 62 Blood Pressure: 145/84 Respiratory Rate: 14 Pulse Ox: 98 Oxygen Delivery Method: Room Air Assessment Airway patent: Yes Spontaneous unlabored respirations: Yes Mental status: Awake nausea: No Vomiting: No Anesthesia Complication: No Fluid Hydration Crystalloid volume administer (ml): 10 Total IV fluid infused: 10 Progress Note Anesthesia document: Postop Eval 1 completed: Yes 01/11/25956 <Electronically signed by Shannon pinedo CRNA> Date _ Shannon Crews PRECISION AGRICULTURE SPECIALIST Cosigner Signature: Date CC: ~ Signed [facility] Work Phone: Consult note Author Lou Colorado [facility] Note Date/Time January 11, 2025 10: 28am [facility] Medical Records Department [address] [place] [address] Anesthesia Postop Eval II 01/11/25 1026 MR#: [id number] Acct: [id number] Name: CORAL BUSH Rep #:[id number] : 1940 84 From: Lou [place] PCP: Dr. Mook Burch, DO Status:REG [facility] Y Race: C Location: [facility] Anesthesia Postop Eval I Sum Postop Eval Completion status Anesthesia document: Postop Eval 1 completed: Yes Anesthesia Postop Eval I Summary Anesthesia Postop Eval I Summary: Anesthesia Postop Eval I: Assessment Summary Airway patent Yes 01/11/25 09:57 PRECISION AGRICULTURE SPECIALIST.LMIL Spontaneous unlabored Yes 01/11/25 09:57 PRECISION AGRICULTURE SPECIALIST.LMIL respirations Mental status Awake 01/11/25 09:57 PRECISION AGRICULTURE SPECIALIST.LMIL nausea No 01/11/25 09:57 PRECISION AGRICULTURE SPECIALIST.LMIL Vomiting No 01/11/25 09:57 PRECISION AGRICULTURE SPECIALIST.LMIL Anesthesia Postop Eval I: Fluid Summary Crystalloid volume administer 10 01/11/25 09:57 PRECISION AGRICULTURE SPECIALIST.LMIL (ml) Colloids volume administered ( ml) Blood Product volume administered (ml) Total IV fluid infused 10 01/11/25 09:57 PRECISION AGRICULTURE SPECIALIST.LMIL Anesthesia Postop Eval I: Summary Notes Anesthesia Complication No 01/11/25 09:57 PRECISION AGRICULTURE SPECIALIST.LMIL Anesthesia Complication Comment: Post-operative progress note Anesthesia: Postop Eval II Evaluation Mental status: Awake Pain Level: 2 nausea: No Vomiting: No 01/11/25 1026 <Electronically signed by Lou Sirc a> Date _ Lou Urbanoigner Signature: Date CC: ~ Signed [facility] Work Phone: Evaluation + Plan note Future Appointments Appointment Date:01/03/2023 10:00:00 AM Scheduled Provider:MOOK BURCH DO Location:[facility] Appointment Type:PC Wellness Medicare [facility] Evaluation + Plan note Future Appointments Appointment Date:07/25/2023 11:00:00 AM Scheduled Provider:MOOK BURCH DO Location:[facility] Appointment Type:PC OV Diagnostic Tests Pending * JAIDEN (serum) 02/01/23 Future Scheduled Tests Laboratory* Vitamin D Level 01/17/23 [facility] Evaluation + Plan note Future Appointments Appointment Date:07/25/2023 11:00:00 AM Scheduled Provider:MOOK BURCH DO Location:[facility] Appointment Type:PC OV Future Scheduled Tests Laboratory* Vitamin D Level 01/17/23 [facility] Evaluation + Plan note Future Appointments Appointment Date:02/20/2024 11:00:00 AM Scheduled Provider:MOOK BURCH DO Location:[facility] Appointment Type:PC OV Appointment Date:07/21/2024 10:30:00 AM Scheduled Provider:MOOK BURCH DO Location:[facility] Appointment Type:PC OV [facility] Evaluation + Plan note Future Appointments Appointment Date:07/21/2024 10:30:00 AM Scheduled Provider:MOOK BURCH DO Location:[facility] Appointment Type:PC OV [facility] Evaluation + Plan note Future Appointments Appointment Date:02/04/2025 10:00:00 AM Scheduled Provider:MOOK BURCH DO Location:[place] Appointment Type:PC Wellness Medicare Future Scheduled Tests Laboratory* Thyroid Stimulating Hormone 01/18/25 * Complete Blood Count 01/18/25 * Lipid Profile 01/18/25 * Complete Metabolic Panel 01/18/25 [facility] Evaluation note* Diagnosis Onset Date Resolution Status Essential (primary) hypertension chronic HLD (hyperlipidemia) chronic [facility] Work Phone: Evaluation noteNo assessment information available [facility] Work Phone: Evaluation note* Diagnosis Onset Date Resolution Status Abnormal lung sounds acute Essential (primary) hypertension chronic HLD (hyperlipidemia) [facility] Work Phone: Evaluation note* Diagnosis Monoclonal gammopathy Monoclonal paraproteinemia documented in this encounter [facility] note* 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 and reticulosarcoma, unspecified extranodal and solid organ sites documented in this encounter [facility] note* 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 and reticulosarcoma, unspecified extranodal and solid organ sites Waldenstrom macroglobulinemia (HCC) Macroglobulinemia Neuropathy Mononeuritis of unspecified site documented in this encounter [facility] note* Diagnosis Waldenstrom macroglobulinemia- Primary Macroglobulinemia [facility] Narrative No data available for this section [facility] Hospital Discharge instructions No data available for this section [facility] Progress note No data available for this section [facility] Reason for referral (narrative)No reason for referral [facility] Work Phone: Chief Complaint and Reason for Visit Chief Complaint 1 y fu EORDERS Reason for Visit Essential (primary) hypertension HLD (hyperlipidemia) Chief Complaint RIGHT SHOULER PAIN Chief Complaint 1 Y FU EORDER PAIN,SCIATICA Reason for Visit Abnormal lung sounds Essential (primary) hypertension HLD (hyperlipidemia) Family History No Family History Records Found Relationship Condition Age at Onset Recorded Date/T rubén father Cerebrovascular accident (CVA) Unknown brother Coronary artery disease Unknown Cerebrovascular accident (CVA) Unknown mother Cerebrovascular accident (CVA) Unknown Advance Directives No Advanced Directives Records Found Advance Directive Response Recorded Date/ Time Living Will No April 12, 2021 8:53am Power of Planogrammer No April 12 8:53am Advance Directive Response Recorded Date/ Time Living Will Yes November 07 2:34pm Power of Planogrammer Yes November 07, 2022 2:34pm Name of Medical Power of Planogrammer KRISTYN BUSH November 07, 2022 2:34pm Advance Directive Response Recorded Date/ Time Living Will Yes November 07 3:34pm Power of Planogrammer Yes November 07, 2022 3:34pm Advance Directive Response Recorded Date/ Time Living Will Yes January 08, 2025 11:46am Power of Planogrammer Yes January 08 11:46am Name of Medical Power of Planogrammer [facility] January 08, 2025 11:46am Summary Purpose Additional Source Comments Goals (unrecognized section and content) Goals may be documented in a n alternate section No data available for this section No data available for this section No data available for this section No data available for this section No data available for this section No data available for this section No data available for this section Care Team (unrecognized sect ion and content) Care Team Personnel Name: Dayday Thomson Clerisabel Edmonds PT Position: P3 Scheduling - Hotel Attendant Advanced Member Role: Other Name: LISSETH HERNANDEZ MD Member Role: Monkey Breeder Address: Address: [facility] [address] [place] [address]- [place] Name: JEFFRY ARREDONDO DO Member Role: Oncologist Address: Address: [address] [place] [address] Name: MOOK BURCH DO Position: P4 Physician - Primary Care Med Service: Active Provider Member Role: Primary Care Physician Address: Address: [address] [facility] [place] [address]- [place] Name: JOSEPH BANERJEE MD Member Role: Test Bore Helper Address: Address: [address] [facility] [place] [address]- [place] Name: AURE RODRIGUEZ MD Member Role: Chinese Language Professor Address: Address: [address] [place] [address] [place] Care Team Related Persons Name: ELISABETH BUSH Address: Home [address] [place], [place] [id number] [place] Care Teams (unrecognized sec tion and content) Team Status: Active Member Role Status Dates Dr. Rene Quispe MD Family Provider Active Dr. Mook Burch DO Primary Care Provider Active Team Status: Inactive Member Role Status Dates Dr. Mook Burch DO Primary Care Provider Active Dr. Gerardo Barker MD Attending Provider, Referring Provider Active Team Status: Active Member Role Status Dates Dr. Mook Burch DO Primary Care Provider Active Moise CARDOZA PA-C Attending Provider Active Team Status: Inactive Member Role Status Dates Dr. Mook Burch DO Primary Care Provider Active Moise CARDOZA PA-C Attending Provider Active Team Status: Inactive Member Role Status Dates Dr. Mook Burch DO Primary Care Provider, Referri ng Provider Active Pamela CARDOZA PA Attending Provider Active Team Status: Inactive Member Role Status Dates Dr. Mook Burch DO Primary Care Provider Active Pamela Ochoa PA, PA Attending Provider Active Team Status: Active Member Role Status Dates Dr. Mook Burch DO Primary Care Pro vider, Attending Provider, Referring Provider Active Dr. Gerardo Barker MD Other Provider Active Team Status: Inactive Member Role Status Dates Dr. Mook Burch DO Primary Care Pro vider, Attending Provider, Referring Provider Active Dr. Gerardo Barker MD Other Provider Active Team Status: Inactive Member Role Status Dates Dr. Mook Burch DO Primary Care Provider, Referri ng Provider Active Dr. Gerardo Barker MD Attending Provider Active School Social Worker Relationship Specialty Start Date End Date Mook Burch DO [address] [place] [address] PCP - General Family Medicine 02/12/24 Joseph Banerjee MD [address] [address] Cardiology 02/12/24 School Social Worker Relationship Specialty Start Date End Date Mook Burch DO [address] [place] [address] PCP - General Family Medicine 02/12/24 Joseph Banerjee MD [address] [address] Cardiology 02/12/24 School Social Worker Relationship Specialty Start Date End Date Mook Burch DO [address] [place] [address] PCP - General Family Medicine 02/12/24 Joseph Banerjee MD [address] [address] Cardiology 02/12/24 School Social Worker Relationship Specialty Start Date End Date Mook Burch DO [address] [place] [address] PCP - General Family Medicine 02/12/24 Joseph Banerjee MD [address] [address] Cardiology 02/12/24 Team Status: Active Member Role Status Dates Dr. Mook Burch DO Primary Care Provider Active Team Status: Inactive Member Role Status Dates Dr. Mook Burch DO Primary Care Provider Active Start: January 11, 2025 End: January 11, 2025 Dr. Gerardo Barker MD Attending Provider Active Start: January 11, 2025 End: January 11, 2025 Dr. Gerardo Barker MD Referring Provider Active Start: January 11, 2025 End: January 11, 2025 School Social Worker Relationship Specialty Start Date End Date Mook Burch DO [address] [place] [address] PCP - General Family Medicine 02/12/24 Joseph Banerjee MD [address] [address] Cardiology 02/12/24 Source Comments (unrecognize d section and content) In the event this informatio n is protected by the Federal Confidentiality of Alcohol and Drug Abuse Patient Records regulations: The Federal rules restrict any use of the information to criminally investigate or prosecute any alcohol or drug abuse patient.[facility] the event this information is protected by the Federal Confidentiality of Alcohol and Drug Abuse Patient Records regulations: The Federal rules restrict any use of the information to criminally investigate or prosecute any alcohol or drug abuse patient.[facility] the event this information is protected by the Federal Confidentiality of Alcohol and Drug Abuse Patient Records regulations: The Federal rules restrict any use of the information to criminally investigate or prosecute any alcohol or drug abuse patient.[facility] the event this information is protected by the Federal Confidentiality of Alcohol and Drug Abuse Patient Records regulations: The Federal rules restrict any use of the information to criminally investigate or prosecute any alcohol or drug abuse patient.[facility] the event this information is protected by the Federal Confidentiality of Alcohol and Drug Abuse Patient Records regulations: The Federal rules restrict any use of the information to criminally investigate or prosecute any alcohol or drug abuse patient.[facility] the event this information is protected by the Federal Confidentiality of Alcohol and Drug Abuse Patient Records regulations: The Federal rules restrict any use of the information to criminally investigate or prosecute any alcohol or drug abuse patient.[facility] the event this information is protected by the Federal Confidentiality of Alcohol and Drug Abuse Patient Records regulations: The Federal rules restrict any use of the information to criminally investigate or prosecute any alcohol or drug abuse patient.[facility] Reason for Visit (unrecogniz ed section and content) Reason Comments Appointment Reason Comments New Patient Reason Comments Follow Up Reason Comments Results Reason Comments Patient Question Reason Comments Established Patient (unrecognized sect ion and content) No Status Records FoundNo Status Records FoundNo Status Records FoundNo Status Records Found INFORMATION SOURCE (unrecogn ized section and content) DATE CREATED AUTHOR 02/23/2024 [facility] ([place]) DATE CREATED AUTHOR AUTHOR'S ORGANIZ ATION 01/07/2025 [facility] DATE CREATED AUTHOR AUTHOR'S ORGANIZ ATION 03/05/2025 [facility] DATE CREATED AUTHOR AUTHOR'S ORGANIZ ATION 05/15/2025 [facility] FOR RECORDS PERTAINING TO PATIENTS WHO ARE OR HAVE BEEN ENROLLED IN A CHEMICAL DEPENDENCY/SUBSTANCEABUSE PROGRAM, SOME INFORMATION MAY BE OMITTED. This clinical summary was aggregated from multiple sources. Caution should be exercised in using it in the provision of clinical care. This summary normalizes information from multiple sources, and as a consequence, information in this document may materially change the coding, format and clinical context of patient data. In addition, data may be omitted in some cases. CLINICAL DECISIONS SHOULD BE BASED ON THE PRIMARY CLINICAL RECORDS. [employer] [facility]. provides no warranty or guarantee of the accuracy or completeness of information in this document.
--- NOTE | 2025-05-17 09:11 | RAD_ITS ---
EXAM: XR Lumbosacral Spine, 2 or 3 Views CLINICAL INDICATION: RT LUMBAR MEDIAL BRANCH BLOCK L4 L5 S1 TECHNIQUE: Frontal and lateral views of the lumbar spine and sacrum. COMPARISON: No relevant prior studies available. FINDINGS: A total 4 fluoroscopic spot images were obtained. Total radiation dose 3.04 mGy. Total fluoroscopy time was 12.2 sec. RAD/Lumbar Spine 2 or 3 Views IMPRESSION: No acute fracture. Reading Location: [facility]
[2025-05-17] MEDS: Lidocaine 1% (5 ml sdv) 5 ML Vial (09:24)
--- NOTE | 2025-05-17 09:32 | PCM.POST.ANE ---
Anesthesia: Postop Eval I Current Vital Signs Temperature: 97.7 F Pulse Rate: 60 Blood Pressure: 107/70 Respiratory Rate: 14 Pulse Ox: 97 Oxygen Delivery Method: Room Air Assessment Airway patent: Yes Spontaneous unlabored respirations: Yes Mental status: Awake and Calm nausea: No Vomiting: No Anesthesia Complication: No Fluid Hydration Crystalloid volume administer (ml): 300 Total IV fluid infused: 300 Progress Note Anesthesia document: Postop Eval 1 completed: Yes
--- NOTE | 2025-05-17 10:04 | PCM.OPRPT ---
Operative Report (Standard) Operative Information Date of Procedure: 05/17/25 Pre-Operative Diagnosis: 1 Post-Operative Diagnosis: 1 Surgery/Procedure Performed: 1 director of education and training: No Type of Anesthesia: Local MAC RN Documented Start/Stop Times: Operation Date: 05/17/25 09:50 Case Time Into Pre-Op 05/17/25 08:08 Anesthesia Start 05/17/25 09:10 Into Room 05/17/25 09:10 Procedure Start 05/17/25 09:21 Procedure End 05/17/25 09:23 Anesthesia End 05/17/25 09:27 Out of Room 05/17/25 09:27 Into Recovery 05/17/25 09:30 Into Phase II Recovery 05/17/25 09:43 Out of Recovery 05/17/25 09:43 Out of Phase II 05/17/25 10:00 Procedure Start Time: 10:05 Procedure Stop Time: 10:05 Select all DRAINS/GRAFTS/IMPLANTS that apply: None Estimated Blood Loss: 1 Specimen collected: No Description of surgery: PREOPERATIVE DIAGNOSIS: Lumbosacral spondylosis, lumbosacral degenerative disc disease, lumbar facet arthropathy POSTOPERATIVE DIAGNOSIS:Lumbosacral spondylosis, lumbosacral degenerative disc disease, lumbar facet arthropathy PROCEDURE PERFORMED: Right-sided lumbar medial branch block at L4, L5, and S1. ANESTHESIA: MAC. BLOOD LOSS: Minimal. COMPLICATIONS: None. DESCRIPTION OF PROCEDURE: History and physical of today was reviewed. Risks and benefits of the procedure were explained. The patient understood and agreed to proceed. Informed consent was obtained. IV inserted per routine protocol. The patient was taken to the operating room and placed in the prone position with a pillow positioned underneath the abdomen. The right side of her lower back was prepped and draped in a sterile fashion using iodine x3. Under fluoroscopy on oblique view, the L3 through S1 vertebral bodies were visualized. The skin and subcutaneous tissue was anesthetized with approximately 5 mL of 1% lidocaine using a 25-gauge regular needle. Under direct visualization with fluoroscopy, at approximately 25-degree angle starting on the right L3, ending on the right S1, passing through the L4 and L5, using a 22-gauge 3-1/2-inch spinal needle, the needle was advanced via the skin. The tip of the needle was maneuvered and directed towards the superior medial gutter of the transverse process at the vicinity of the medial branch. Once tip of the needle was in contact with the bone, the needle was pulled approximately 2 mm off the bone. After negative aspiration of blood or CSF and confirmation on AP as well as oblique view, a total of 8 mL of preservative-free 0.25% Marcaine with 80 mg of Depo-Medrol was injected in divided doses between those four levels. The needles were then removed intact. The patient experienced no sign or symptoms of intrathecal or intravascular injection. The patient experienced no paresthesia. The procedure was completed without any apparent difficulty or any complications. The patient appeared to tolerate it well. ASSESSMENT AND PLAN: This is an 85-year-old male with lumbosacral spondylosis, lumbosacral degenerative disc disease, lumbar facet arthropathy status post right-sided lumbar medial branch block at L4-S1, patient will continue his current medications, patient will follow-up in approximately 2 weeks for reevaluation. Surgical Findings: 1 Complications Complications: No Admit VTE Documentation VTE Present on Admission: No VTE Mechan Device Prophylaxis: None VTE Pharm Prophylaxis ordered?: No
--- NOTE | 2025-05-17 13:59 | POSTOPAN2_ITS ---
Anesthesia Postop Eval I Sum Postop Eval Completion status Anesthesia document: Postop Eval 1 completed: Yes Anesthesia Postop Eval I Summary Anesthesia Postop Eval I Summary: Anesthesia Postop Eval I: Assessment Summary Airway patent Yes 05/17/25 09:33 HEADER [email or web address] Spontaneous unlabored Yes 05/17/25 09:33 HEADER DOCK.ABAR respirations Mental status Awake,Calm 05/17/25 09:33 HEADER DOCK.ABAR nausea No 05/17/25 09:33 HEADER DOCK.ABAR Vomiting No 05/17/25 09:33 HEADER DOCK.ABAR Anesthesia Postop Eval I: Fluid Summary Crystalloid volume administer 300 05/17/25 09:33 HEADER DOCK.ABAR (ml) Colloids volume administered ( ml) Blood Product volume administered (ml) Total IV fluid infused 300 05/17/25 09:33 HEADER DOCK.ABAR Anesthesia Postop Eval I: Summary Notes Anesthesia Complication No 05/17/25 09:33 HEADER DOCK.ABAR Anesthesia Complication Comment: Post-operative progress note Anesthesia: Postop Eval II Evaluation Mental status: Awake and Calm Pain Level: 0 nausea: No Vomiting: No Complications Anesthesia Complication: No
--- NOTE | 2025-05-17 13:59 | PCM.POSTANE2 ---
Anesthesia Postop Eval I Sum Postop Eval Completion status Anesthesia document: Postop Eval 1 completed: Yes Anesthesia Postop Eval I Summary Anesthesia Postop Eval I Summary: Anesthesia Postop Eval I: Assessment Summary Airway patent Yes 05/17/25 09:33 RECREATION [email or web address] Spontaneous unlabored Yes 05/17/25 09:33 RECREATION ENGINEER.ABAR respirations Mental status Awake,Calm 05/17/25 09:33 RECREATION ENGINEER.ABAR nausea No 05/17/25 09:33 RECREATION ENGINEER.ABAR Vomiting No 05/17/25 09:33 RECREATION ENGINEER.ABAR Anesthesia Postop Eval I: Fluid Summary Crystalloid volume administer 300 05/17/25 09:33 RECREATION [email or web address].ABAR (ml) Colloids volume administered ( ml) Blood Product volume administered (ml) Total IV fluid infused 300 05/17/25 09:33 RECREATION ENGINEER.ABAR Anesthesia Postop Eval I: Summary Notes Anesthesia Complication No 05/17/25 09:33 RECREATION [email or web address].ABAR Anesthesia Complication Comment: Post-operative progress note Anesthesia: Postop Eval II Evaluation Mental status: Awake and Calm Pain Level: 0 nausea: No Vomiting: No Complications Anesthesia Complication: No
== END 2025-05-17 10:01 | disposition home or self-care (01) ==
LOC: SDC 08:03 → AC 08:05
PROVIDERS: PCP Family Medicine; Referring Provider Anesthesiology Pain Medicine; Visit Provider Anesthesiology Pain Medicine
PROC: 3E0S3BZ Introduction of Anesthetic Agent into Epidural Space, Percutaneous Approach (ICD-10-PCS; CPT 62322; principal; 2025-05-17 09:45)
DX: M51.17 Intervertebral disc disorders with radiculopathy, lumbosacral region (principal); M47.817 Spondylosis without myelopathy or radiculopathy, lumbosacral region; M46.96 Unspecified inflammatory spondylopathy, lumbar region; I10 Essential (primary) hypertension; I34.0 Nonrheumatic mitral (valve) insufficiency; E78.00 Pure hypercholesterolemia, unspecified; J45.909 Unspecified asthma, uncomplicated; Z79.51 Long term (current) use of inhaled steroids; Z90.49 Acquired absence of other specified parts of digestive tract; Z79.899 Other long term (current) drug therapy; Z87.891 Personal history of nicotine dependence
CPT/HCPCS: 64493; 64494; 64483; 72100